=== PATIENT | male | born 1950 | race Caucasian/White ===

== ENCOUNTER 2020-06-11 10:21 | Outpatient (REF) | payer MEDICARE, MEDICAID, SELFPAY ==
[2020-06-11 14:15] LABS: MANUAL DIFF FLAG NO
[2020-06-11 14:24] LABS: Basophils Percent Auto 0.5 % (0-2); Eosinophils Absolute Auto 0.2 X10*3/uL (0.0-0.4); Eosinophils Percent Auto 3.6 % (0-4); Hematocrit 44.9 % (42-52); Hemoglobin 14.9 g/dl (14.0-18.0); Imm Gran Abs Auto 0.01 X10*3/uL (0.00-0.03); Imm Gran Pct Auto 0.2 % (0.0-0.4); Lymphocytes Absolute Auto 1.6 X10*3/uL (1.2-4.9); Lymphocytes Percent Auto 27.9 % (20-40); Mean Corpuscular HGB Conc 33.2 g/dl (31.0-36.0); Mean Corpuscular Hemoglobin 29.2 pg (27.0-33.0); Mean Corpuscular Volume 87.9 fL (80-98); Mean Platelet Volume 12.9 fL (9.4-12.4); Monocytes Absolute Auto 0.5 X10*3/uL (0.1-1.2); Neutrophils Absolute Auto 3.5 X10*3/uL (2.0-8.3); Neutrophils Percent Auto 59.8 % (45-73); Red Blood Count 5.11 X10*6/uL (4.60-5.80); Red Cell Distribution Width 12.4 % (11.0-16.0); White Blood Count 5.9 X10*3/uL (4.8-10.8)
[2020-06-11 14:57] LABS: Platelet Count 80 X10*3/uL (160-400)
[2020-06-11 15:02] LABS: Alanine Aminotransferase 13 U/L (0-40); Albumin Level 4.6 g/dL (3.5-5.0); Alkaline Phosphatase 71 U/L (39-117); Anion Gap 14 (12-20); Aspartate Amino Transferase 18 U/L (5-37); Blood Urea Nitrogen 13 mg/dL (9-16); Calcium 9.2 mg/dL (8.4-10.2); Carbon Dioxide 22 mmol/L (22-29); Chloride 107 mmol/L (96-108); Cholesterol 122 mg/dL; Estimated Glomerular Filt Rate > 60; Glucose Fasting 103 mg/dL (60-99); HDL Cholesterol 38 mg/dL; LDL Cholesterol Calculated 64 mg/dl; Potassium 4.1 mmol/L (3.3-5.1); Sodium 139 mmol/L (135-145); Total Protein 7.4 g/dL (6.5-8.0); Triglycerides 102 mg/dL
== END 2020-06-11 10:22 | disposition home or self-care (01) ==
LOC: HO.10HDL 10:21
PROVIDERS: Visit Provider Internal Medicine
DX: Z00.00 Encounter for general adult medical examination without abnormal findings (principal); E11.9 Type 2 diabetes mellitus without complications
CPT/HCPCS: 36415; 80053; 80061; 85025

== ENCOUNTER 2021-02-18 09:31 | Outpatient (REF) | payer MEDICARE, MEDICAID, SELFPAY ==
[2021-02-18 10:48] LABS: Cholesterol 122 mg/dL; HDL Cholesterol 28 mg/dL; LDL Cholesterol Calculated 66 mg/dl; Triglycerides 144 mg/dL
== END 2021-02-18 09:32 | disposition home or self-care (01) ==
LOC: HO.10HDL 09:31
PROVIDERS: Visit Provider Internal Medicine
DX: E11.9 Type 2 diabetes mellitus without complications (principal)
CPT/HCPCS: 36415; 80061

== ENCOUNTER 2021-05-27 10:15 | Outpatient (REF) | payer MEDICARE, MEDICAID, SELFPAY ==
[2021-05-27 10:35] LABS: MANUAL DIFF FLAG NO
[2021-05-27 11:03] LABS: Basophils Percent Auto 0.3 % (0-2); Eosinophils Absolute Auto 0.2 X10*3/uL (0.0-0.4); Hemoglobin 14.9 g/dl (14.0-18.0); Imm Gran Abs Auto 0.02 X10*3/uL (0.00-0.03); Imm Gran Pct Auto 0.3 % (0.0-0.4); Lymphocytes Absolute Auto 2.1 X10*3/uL (1.2-4.9); Mean Corpuscular HGB Conc 33.1 g/dl (31.0-36.0); Mean Corpuscular Hemoglobin 29.2 pg (27.0-33.0); Mean Corpuscular Volume 88.2 fL (80.0-98.0); Mean Platelet Volume 11.8 fL (9.4-12.4); Monocytes Absolute Auto 0.6 X10*3/uL (0.1-1.2); Monocytes Percent Auto 8.3 % (2-11); Neutrophils Absolute Auto 4.5 x10*3/uL (2.0-8.3); Neutrophils Percent Auto 60.1 % (45-73); Red Cell Distribution Width 12.3 % (11.0-16.0); White Blood Count 7.4 X10*3/uL (4.8-10.8)
[2021-05-27 11:22] LABS: Alanine Aminotransferase 13 U/L (0-40); Albumin Level 4.5 g/dL (3.5-5.0); Alkaline Phosphatase 66 U/L (39-117); Anion Gap 11 (12-20); Aspartate Amino Transferase 14 U/L (5-37); Bilirubin Total 0.9 mg/dL (0.0-1.0); Blood Urea Nitrogen 18 mg/dL (9-16); Calcium 9.6 mg/dL (8.4-10.2); Carbon Dioxide 24 mmol/L (22-29); Chloride 108 mmol/L (96-108); Cholesterol 133 mg/dL; Estimated Glomerular Filt Rate > 60; Glucose Fasting 109 mg/dL (60-99); HDL Cholesterol 36 mg/dL; LDL Cholesterol Calculated 76 mg/dl; Potassium 4.4 mmol/L (3.3-5.1); Sodium 139 mmol/L (135-145); Total Protein 7.4 g/dL (6.5-8.0); Triglycerides 109 mg/dL
[2021-05-27 11:34] LABS: Platelet Count 74 X10*3/uL (160-400)
== END 2021-05-27 10:16 | disposition home or self-care (01) ==
LOC: HO.LAB 10:15
PROVIDERS: PCP Internal Medicine; Visit Provider Internal Medicine
DX: Z00.00 Encounter for general adult medical examination without abnormal findings (principal); Z13.0 Encounter for screening for diseases of the blood and blood-forming organs and certain disorders involving the immune mechanism
CPT/HCPCS: 36415; 80053; 80061; 85025

== ENCOUNTER 2021-08-14 08:31 | Outpatient (REF) | payer MEDICARE, MEDICAID, SELFPAY ==
[2021-08-14 11:00] LABS: Cholesterol 167 mg/dL; HDL Cholesterol 36 mg/dL; LDL Cholesterol Calculated 97 mg/dl; Triglycerides 170 mg/dL
== END 2021-08-14 08:32 | disposition home or self-care (01) ==
LOC: HO.10HDL 08:31
PROVIDERS: Visit Provider Internal Medicine
DX: Z13.220 Encounter for screening for lipoid disorders (principal)
CPT/HCPCS: 36415; 80061

== ENCOUNTER 2022-03-04 10:11 | Outpatient (REF) | payer MEDICARE, MEDICAID, SELFPAY ==
[2022-03-04 10:30] LABS: MANUAL DIFF FLAG NO
[2022-03-04 10:39] LABS: Basophils Percent Auto 0.4 % (0-2); Hematocrit 42.3 % (42.0-52.0); Imm Gran Abs Auto 0.03 X10*3/uL (0.00-0.03); Imm Gran Pct Auto 0.4 % (0.0-0.4)
[2022-03-04 10:41] LABS: Eosinophils Absolute Auto 0.2 X10*3/uL (0.0-0.4); Eosinophils Percent Auto 2.4 % (0-4); Hemoglobin 13.7 g/dl (14.0-18.0); Lymphocytes Absolute Auto 1.8 X10*3/uL (1.2-4.9); Lymphocytes Percent Auto 22.2 % (20-40); Mean Corpuscular HGB Conc 32.4 g/dl (31.0-36.0); Mean Corpuscular Hemoglobin 27.3 pg (27.0-33.0); Mean Corpuscular Volume 84.3 fL (80.0-98.0); Mean Platelet Volume 11.6 fL (9.4-12.4); Monocytes Absolute Auto 0.7 X10*3/uL (0.1-1.2); Monocytes Percent Auto 8.7 % (2-11); Neutrophils Absolute Auto 5.4 x10*3/uL (2.0-8.3); Neutrophils Percent Auto 65.9 % (45-73); Red Blood Count 5.02 X10*6/uL (4.60-5.80); Red Cell Distribution Width 13.3 % (11.0-16.0)
[2022-03-04 10:42] LABS: Platelet Count 86 X10*3/uL (160-400); White Blood Count 8.2 X10*3/uL (4.8-10.8)
[2022-03-04 11:27] LABS: Alanine Aminotransferase 14 U/L (0-40); Albumin Level 4.3 g/dL (3.5-5.0); Alkaline Phosphatase 75 U/L (39-117); Anion Gap 13 (12-20); Aspartate Amino Transferase 13 U/L (5-37); Bilirubin Total 0.8 mg/dL (0.0-1.0); Blood Urea Nitrogen 16 mg/dL (9-16); Carbon Dioxide 25 mmol/L (22-29); Chloride 107 mmol/L (96-108); Cholesterol 114 mg/dL; Estimated Glomerular Filt Rate > 60; Glucose Fasting 114 mg/dL (60-99); HDL Cholesterol 30 mg/dL; LDL Cholesterol Calculated 59 mg/dl; Sodium 141 mmol/L (135-145); Total Protein 7.1 g/dL (6.5-8.0); Triglycerides 128 mg/dL
== END 2022-03-04 10:12 | disposition home or self-care (01) ==
LOC: HO.10HDL 10:11
PROVIDERS: Visit Provider Internal Medicine
DX: Z13.0 Encounter for screening for diseases of the blood and blood-forming organs and certain disorders involving the immune mechanism (principal); I10 Essential (primary) hypertension; E78.5 Hyperlipidemia, unspecified
CPT/HCPCS: 36415; 80053; 80061; 85025

== ENCOUNTER 2022-08-01 08:58 | Outpatient (REF) | payer MEDICARE, MEDICAID, SELFPAY ==
[2022-08-01 11:12] LABS: Cholesterol 166 mg/dL; HDL Cholesterol 50 mg/dL; LDL Cholesterol Calculated 85 mg/dl; Triglycerides 159 mg/dL
== END 2022-08-01 08:59 | disposition home or self-care (01) ==
LOC: HO.10HDL 08:58
PROVIDERS: Visit Provider Internal Medicine
DX: E78.5 Hyperlipidemia, unspecified (principal)
CPT/HCPCS: 36415; 80061

== ENCOUNTER 2023-02-10 10:59 | Outpatient (AMB) | payer MEDICARE, MEDICAID, SELFPAY ==
[2023-02-10 11:03] VITALS: BP 132/90; PULSE 50; O2SAT 98; BMI 28.1
--- NOTE | 2023-02-10 11:03 | MHC.PC.OV ---
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 Accompanied by: Daughter Allergies atorvastatin [Lipitor] Allergy (Unknown, Verified 02/10/23 11:03) nausea and vomiting acetaminophen [From Tylenol] Allergy (Verified 02/10/23 11:08) Unknown Erythromycin Allergy (Unknown, Uncoded 02/10/23 11:03) Unknown Medication List - Last Reconciled 02/10/23 by Sammy Arambula MD blood pressure monitor (Blood Pressure Kit) As directed Crestor (rosuvastatin) 20 mg PO DAILY 90 days NS diltiazem HCl 180 mg PO DAILY metoprolol succinate ER 150 mg (1.5 x 100 mg) PO BID PRN triamcinolone acetonide 0.5% 1 appl topical TID Tobacco use date assessed: 08/06/22 Fall risk assessment: No Falls in past year Last assessed Fall Risk: 02/10/23 Dental Screening Dental Screen Date: 02/10/23 Did you have a dental visit in the last 12 months?: Yes Did you have a dental problem in the last 6 months where you did not have access to dental care?: No Was dental information given to patient?: Patient has dentist HPI 3 month follow up HPI Details HTN Hyperlip and colon cancer; had his surgery and still has a stoma [facility] Medical History Obesity Hyperlipidemia Surgical History History of creation of ostomy Hx of CABG Family History Father No problems noted. Mother No problems noted. Social History Housing: House Alcohol intake: never Patient Tobacco Use Status: Never used Tobacco e-Cigarette/Vaping Use: Never Used Second Hand Smoke Exposure: No service: No Current occupational status: retired Cognitive needs: No Hearing needs: No Vision needs: No Questionnaire Thrive Questionnaire Date Thrive assessed: 08/06/22 SOLANGE-7 AMB Questionnaire SOLANGE-7 Date SOLANGE - 7 assessed: 08/06/22 Source: Developed by Drs. Silvestre Montesinos, Kaitlin Zhu, Brad Retana and colleagues, with an educational eliazar from [employer]. Review of Systems Const Denies chills, Denies headache(s) and Denies weight loss ENT Denies headache(s) Card Denies chest pain, Denies syncope, Denies irregular heart rhythm and Denies dyspnea Resp Denies chest congestion, Denies cough and Denies dyspnea GI Denies abdominal pain, Denies change in stool character, Denies nausea and Denies vomiting Musc Denies deformity and Denies joint swelling Neuro Denies syncope and Denies headache(s) Physical exam (Primary Care) Vital Signs: Last Vital Signs Pulse 50 02/10/23 11:03 BP 132/90 H 02/10/23 11:03 Pulse Ox 98 02/10/23 11:03 Oxygen Delivery Method Room Air 02/10/23 11:03 BMI result Body Mass Index 28.1 Tobacco/Smoking Status: Tobacco use Status Tobacco use date assessed 08/06/22 02/10/23 11:04 Patient Tobacco Use Status Never used Tobacco 02/10/23 11:04 e-Cigarette/Vaping Use Never Used 02/10/23 11:04 Thrive Assessment: Date of Thrive Assessment Date Thrive assessed 08/06/22 02/10/23 11:04 Const General: cooperative, comfortable, no acute distress and alert Neck Neck: Yes no lymphadenopathy Thyroid: Thyroid normal Resp Effort & Inspection: normal respiratory effort Auscultation: clear to auscultation bilaterally Percussion: percussion normal Cardio Jugular venous distension: no JVD Palpation: normal PMI Rate: regular rate Rhythm: regular rhythm Heart sounds: S1 normal heart sound present and S2 normal heart sound present GI Inspection: Yes normal to inspection Palpation (GI): No hepatosplenomegaly present Skin General skin exam: no rashes or lesions noted Extrem General: Yes no clubbing, cyanosis or edema Assessment and Plan Assessment & Plan (1) Colon cancer: Code(s): C18.9 - Malignant neoplasm of colon, unspecified Plan: as per surgery (2) Hypertension: Code(s): I10 - Essential (primary) hypertension Plan: stable; do labs (3) Hyperlipidemia: Code(s): E78.5 - Hyperlipidemia, unspecified Plan: same rx; do labs Orders: Orders Lipid Panel Today E78.5 - Hyperlipidemia, unspecified Complete Blood Count Auto Diff Today D64.9 - Anemia, unspecified Comprehensive [place]. Panel Fast Today N28.9 - Disorder of kidney and ureter, unspecified Coding Level of Care Code Est Pt Level 4 (85172) Diagnoses Colon cancer C18.9 Hypertension I10 Hyperlipidemia E78.5
== END 2023-02-10 11:31 | disposition home or self-care (01) ==
PROVIDERS: PCP Internal Medicine; Visit Provider Internal Medicine
DX: C18.9 Malignant neoplasm of colon, unspecified (principal); I10 Essential (primary) hypertension; E78.5 Hyperlipidemia, unspecified
CPT/HCPCS: 99214

== ENCOUNTER 2023-09-07 07:39 | Outpatient (REF) | payer MEDICARE, MEDICAID, SELFPAY ==
[2023-09-07 09:08] LABS: MANUAL DIFF FLAG NO
[2023-09-07 09:26] LABS: Basophils Percent Auto 0.3 % (0-2); Eosinophils Absolute Auto 0.1 X10*3/uL (0.0-0.4); Eosinophils Percent Auto 2.3 % (0-4); Hematocrit 41.4 % (42.0-52.0); Hemoglobin 13.7 g/dl (14.0-18.0); Imm Gran Abs Auto 0.03 X10*3/uL (0.00-0.03); Imm Gran Pct Auto 0.5 % (0.0-0.4); Lymphocytes Percent Auto 16.2 % (20-40); Mean Corpuscular HGB Conc 33.1 g/dl (31.0-36.0); Mean Corpuscular Hemoglobin 28.4 pg (27.0-33.0); Mean Corpuscular Volume 85.7 fL (80.0-98.0); Mean Platelet Volume 10.9 fL (9.4-12.4); Monocytes Absolute Auto 0.6 X10*3/uL (0.1-1.2); Monocytes Percent Auto 9.6 % (2-11); Neutrophils Absolute Auto 4.4 x10*3/uL (2.0-8.3); Neutrophils Percent Auto 71.1 % (45-73); Red Blood Count 4.83 X10*6/uL (4.60-5.80); Red Cell Distribution Width 13.8 % (11.0-16.0); White Blood Count 6.2 X10*3/uL (4.8-10.8)
[2023-09-07 09:27] LABS: Platelet Count 86 X10*3/uL (160-400)
[2023-09-07 10:12] LABS: Alanine Aminotransferase 11 U/L (0-40); Albumin Level 4.4 g/dL (3.5-5.0); Alkaline Phosphatase 74 U/L (39-117); Anion Gap 11 (12-20); Aspartate Amino Transferase 14 U/L (5-37); Bilirubin Total 0.9 mg/dL (0.0-1.0); Blood Urea Nitrogen 24 mg/dL (9-16); Calcium 9.5 mg/dL (8.4-10.2); Carbon Dioxide 25 mmol/L (22-29); Chloride 107 mmol/L (96-108); Cholesterol 130 mg/dL (<200); Estimated Glomerular Filt Rate > 60; Glucose Fasting 108 mg/dL (60-99); HDL Cholesterol 42 mg/dL (>40); LDL Cholesterol Calculated 71 mg/dL (<100); Sodium 139 mmol/L (135-145); Total Protein 7.3 g/dL (6.5-8.0); Triglycerides 88 mg/dL (<150)
== END 2023-09-07 07:40 | disposition home or self-care (01) ==
LOC: HO.10HDL 07:39
PROVIDERS: Visit Provider Internal Medicine
DX: N28.9 Disorder of kidney and ureter, unspecified (principal); E78.5 Hyperlipidemia, unspecified; D64.9 Anemia, unspecified
CPT/HCPCS: 36415; 80053; 80061; 85025

== ENCOUNTER 2023-09-09 11:03 | Outpatient (AMB) | payer MEDICARE, MEDICAID, SELFPAY ==
[2023-09-09 11:10] VITALS: BP 140/68; PULSE 70; O2SAT 98; BMI 28.4
--- NOTE | 2023-09-09 11:10 | MHC.PC.OV ---
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 Allergies atorvastatin [Lipitor] Allergy (Unknown, Verified 09/09/23 11:10) nausea and vomiting acetaminophen [From Tylenol] Allergy (Verified 09/09/23 11:10) Unknown Erythromycin Allergy (Unknown, Uncoded 09/09/23 11:10) Unknown Tobacco use date assessed: 09/09/23 Fall risk assessment: No Falls in past year Last assessed Fall Risk: 09/09/23 Dental Screening Dental Screen Date: 02/10/23 HPI 3mth follow up HPI Details hyperlipidemia on rx; doing well; compliant [facility] Medical History Obesity Hyperlipidemia Surgical History History of creation of ostomy Hx of CABG Family History Father No problems noted. Mother No problems noted. Social History Housing: House Alcohol intake: never Patient Tobacco Use Status: Never used Tobacco e-Cigarette/Vaping Use: Never Used Second Hand Smoke Exposure: No service: No Current occupational status: retired Cognitive needs: No Hearing needs: No Vision needs: No Questionnaire PHQ-9 Over the last 2 weeks, how often have you been bothered by any of the following problems? 1. Little interest or pleasure in doing things: not at all 2. Feeling down, depressed, or hopeless: not at all 3. Trouble falling or staying asleep, or sleeping too much: not at all 4. Feeling tired or having little energy: not at all 5. Poor appetite or overeating: not at all 6. Feeling bad about yourself - or that you are a failure or have let yourself or your family down: not at all 7. Trouble concentrating on things, such as reading the newspaper or watching television: not at all 8. Moving or speaking so slowly that other people could have noticed. Or the opposite - being so fidgety or restless that you have been moving around a lot more than usual: not at all 9. Thoughts that you would be better off or of hurting yourself in some way: not at all Total score: 0 Depression Screening Interpretation: Negative Depression Screening Done: Yes Source: Developed by Drs. Silvestre Montesinos, Kaitlin Zhu, Brad Retana and colleagues, with an educational eliazar from [employer]. Thrive Questionnaire Date Thrive assessed: 09/09/23 I am a: Patient What is your living situation today?: I have a steady place to live Within the past 12 months, did the food you bought not last and you didn't have the money to get more?: Never true Within the past 12 months, did you worry whether your food would run out before you got money to buy more?: Never true Do you have trouble paying for medicines?: No Do you have trouble getting transportation to medical appointments?: No Do you have trouble paying your heating and electricity bill?: No Do you have trouble taking care of your child, family member or friend?: No Do you have trouble with day-to-day activities such as bathing, preparing meals, shopping, managing finances, etc.?: No Are you currently unemployed and looking for a job?: No Are you interested in more education?: No Please select the resources that you would like help with: None THRIVE Score: 0 AUDIT C Alcohol Use Questionnaire (AUDIT-C) Score Reviewed/Action Taken: Yes SOLANGE-7 AMB Questionnaire SLOANGE-7 Date SOLANGE - 7 assessed: 09/09/23 Feeling nervous, anxious, or on edge: 0 = Not at all Not being able to stop or control worryin = Not at all Worrying too much about different things: 0 = Not at all Trouble relaxin = Not at all Being so restless that it is hard to sit still: 0 = Not at all Becoming easily annoyed or irritable: 0 = Not at all Feeling afraid as if something awful might happen: 0 = Not at all Total SOLANGE-7 score (0-4 normal; 5-9 mild; 10-14 moderate; 15-21 severe): 0 Source: Developed by Kaitlin Quiroz Marko, Brad Retana and colleagues, with an educational eliazar from [employer]. Review of Systems Const Denies chills, Denies headache(s) and Denies weight loss ENT Denies headache(s) Card Denies chest pain, Denies syncope, Denies irregular heart rhythm and Denies dyspnea Resp Denies chest congestion, Denies cough and Denies dyspnea GI Denies abdominal pain, Denies change in stool character, Denies nausea and Denies vomiting Musc Denies deformity and Denies joint swelling Neuro Denies syncope and Denies headache(s) Physical exam (Primary Care) Vital Signs: Last Vital Signs Pulse 70 09/09/23 11:10 BP 140/68 H 09/09/23 11:10 Pulse Ox 98 09/09/23 11:10 Oxygen Delivery Method Room Air 09/09/23 11:10 BMI result Body Mass Index 28.4 Tobacco/Smoking Status: Tobacco use Status Tobacco use date assessed 09/09/23 09/09/23 11:12 Patient Tobacco Use Status Never used Tobacco 09/09/23 11:12 e-Cigarette/Vaping Use Never Used 09/09/23 11:12 PHQ-9: PHQ-9 Score PHQ-9: Total score 0 09/09/23 11:12 Depression Screening Interpretation: Negative Thrive Assessment: Date of Thrive Assessment Date Thrive assessed 09/09/23 09/09/23 11:12 Const General: cooperative, comfortable, no acute distress and alert Neck Neck: Yes no lymphadenopathy Thyroid: Thyroid normal Resp Effort & Inspection: normal respiratory effort Auscultation: clear to auscultation bilaterally Percussion: percussion normal Cardio Jugular venous distension: no JVD Palpation: normal PMI Rate: regular rate Rhythm: regular rhythm Heart sounds: S1 normal heart sound present and S2 normal heart sound present GI Inspection: Yes normal to inspection Palpation (GI): No hepatosplenomegaly present Skin General skin exam: no rashes or lesions noted Extrem General: Yes no clubbing, cyanosis or edema Assessment and Plan Assessment & Plan (1) Hyperlipidemia: Code(s): E78.5 - Hyperlipidemia, unspecified Plan: stable; same rx Orders: Orders Lipid Panel Today Z13.220 - Encounter for screening for lipoid disorders Coding Level of Care Code Est Pt Level 3 (90779) Diagnoses Hyperlipidemia E78.5
== END 2023-09-09 14:49 | disposition home or self-care (01) ==
PROVIDERS: PCP Internal Medicine; Visit Provider Internal Medicine
DX: E78.5 Hyperlipidemia, unspecified (principal)
CPT/HCPCS: 99213

== ENCOUNTER 2023-12-10 11:00 | Outpatient (AMB) | payer MEDICARE, MEDICAID, SELFPAY ==
--- NOTE | 2023-12-10 11:02 | A.OFFPC_ITS ---
Vital Signs 12/10/23 11:12 Height 5 ft 8 in Weight 188 lb BMI 28.6 BP 136/78 Blood Pressure Location Rt brachial Position Sitting Pulse 71 Pulse Source Pulse Oximeter Pulse Oximetry (%) 94 Oxygen Delivery Method Room Air Intake Visit Reasons: 3mth f/u - see comments Vp Of Customer Experience Strategy Required: Yes Vp Of Customer Experience Strategy Name: Daughter Accompanied by: Daughter and Allergies atorvastatin [Lipitor] Allergy (Unknown, Verified 12/10/23 11:12) nausea and vomiting acetaminophen [From Tylenol] Allergy (Verified 12/10/23 11:12) Unknown Erythromycin Allergy (Unknown, Uncoded 12/10/23 11:12) Unknown Medication List - Last Reconciled 12/10/23 by Sammy Arambula MD apixaban (Eliquis) 5 mg PO BID blood pressure monitor (Blood Pressure Kit) As directed Crestor (rosuvastatin) 20 mg PO DAILY 90 days NS diltiazem HCl CD 180 mg PO DAILY metoprolol succinate ER 150 mg (1.5 x 100 mg) PO BID PRN triamcinolone acetonide 0.5% 1 appl topical TID Tobacco use date assessed: 09/09/23 Fall risk assessment: No Falls in past year Last assessed Fall Risk: 12/10/23 Dental Screening Dental Screen Date: 02/10/23 HPI 3mth f/u - see comments HPI Details hyperlipidemia on rx; doing well; compliant [facility] Medical History Obesity Hyperlipidemia Surgical History History of creation of ostomy Hx of CABG Family History Father No problems noted. Mother No problems noted. Social History Housing: House Alcohol intake: never Patient Tobacco Use Status: Never used Tobacco Tobacco use type: Cigarette e-Cigarette/Vaping Use: Never Used Second Hand Smoke Exposure: No service: No Current occupational status: retired Cognitive needs: No Hearing needs: No Vision needs: No Questionnaire Thrive Questionnaire Date Thrive assessed: 09/09/23 SOLANGE-7 AMB Questionnaire SOLANGE-7 Date SOLANGE - 7 assessed: 09/09/23 Source: Developed by Drs. Silvestre Montesinos, Kaitlin Zhu, Brad Retana and colleagues, with an educational eliazar from [employer] Review of Systems Const Denies chills, Denies headache(s) and Denies weight loss ENT Denies headache(s) Card Denies chest pain, Denies syncope, Denies irregular heart rhythm and Denies dyspnea Resp Denies chest congestion, Denies cough and Denies dyspnea GI Denies abdominal pain, Denies change in stool character, Denies nausea and Denies vomiting Musc Denies deformity and Denies joint swelling Neuro Denies syncope and Denies headache(s) Physical exam (Primary Care) Vital Signs: Last Vital Signs Pulse 71 12/10/23 11:12 BP 136/78 12/10/23 11:12 Pulse Ox 94 12/10/23 11:12 Oxygen Delivery Method Room Air 12/10/23 11:12 BMI result Body Mass Index 28.6 Tobacco/Smoking Status: Tobacco use Status Tobacco use date assessed 09/09/23 12/10/23 11:02 Patient Tobacco Use Status Never used Tobacco 12/10/23 11:02 Tobacco use type Cigarette 12/10/23 11:02 e-Cigarette/Vaping Use Never Used 12/10/23 11:02 Thrive Assessment: Date of Thrive Assessment Date Thrive assessed 09/09/23 12/10/23 11:02 Const General: cooperative, comfortable, no acute distress and alert Neck Neck: Yes no lymphadenopathy Thyroid: Thyroid normal Resp Effort & Inspection: normal respiratory effort Auscultation: clear to auscultation bilaterally Percussion: percussion normal Cardio Jugular venous distension: no JVD Palpation: normal PMI Rate: regular rate Rhythm: regular rhythm Heart sounds: S1 normal heart sound present and S2 normal heart sound present GI Inspection: Yes normal to inspection Palpation (GI): No hepatosplenomegaly present Skin General skin exam: no rashes or lesions noted Extrem General: Yes no clubbing, cyanosis or edema Coding Level of Care Code Est Pt Level 3 (54799) Diagnoses Hyperlipidemia E78.5 Assessment & Plan Assessment & Plan (1) Hyperlipidemia: Code(s): E78.5 - Hyperlipidemia, unspecified Category: Medical Plan: stable; same rx Orders: Orders Lipid Panel Today Z13.220 - Encounter for screening for lipoid disorders
[2023-12-10 11:12] VITALS: BP 136/78; PULSE 71; O2SAT 94; BMI 28.6
== END 2023-12-10 11:40 | disposition home or self-care (01) ==
LOC: HO.HMCH 11:01
PROVIDERS: PCP Internal Medicine; Visit Provider Internal Medicine
DX: E78.5 Hyperlipidemia, unspecified (principal)

== ENCOUNTER → 2023-12-10 11:00 | Outpatient (BNVA) | payer MEDICARE, MEDICAID, SELFPAY | PROVIDERS: PCP Internal Medicine; Visit Provider Internal Medicine | DX: E78.5 Hyperlipidemia, unspecified (principal) | CPT/HCPCS: 99212 ==

== ENCOUNTER 2024-02-25 09:41 | Outpatient (REF) | payer MEDICARE, MEDICAID, SELFPAY ==
[2024-02-25 10:57] LABS: Cholesterol 251 mg/dL (<200); HDL Cholesterol 36 mg/dL (>40); LDL Cholesterol Calculated 178 mg/dL (<100); Triglycerides 189 mg/dL (<150)
== END 2024-02-25 09:42 | disposition home or self-care (01) ==
LOC: HO.10HDL 09:41
PROVIDERS: Visit Provider Internal Medicine
DX: Z13.220 Encounter for screening for lipoid disorders (principal)
CPT/HCPCS: 36415; 80061

== ENCOUNTER 2024-03-11 11:35 | Outpatient (AMB) | payer MEDICARE, MEDICAID, SELFPAY ==
[2024-03-11 11:42] VITALS: BP 128/72; PULSE 69; TEMP 36.1; O2SAT 97; BMI 28.7
--- NOTE | 2024-03-11 11:42 | MHC.PC.OV ---
Vital Signs 03/11/24 11:42 Height 5 ft 8 in Weight 189 lb BMI 28.7 BP 128/72 Blood Pressure Location Lt brachial Position Sitting Pulse 69 Pulse Source Pulse Oximeter Temp 96.9 F Temp Source Temporal Artery Scan Pulse Oximetry (%) 97 Oxygen Delivery Method Room Air Intake Visit Reasons: 3mth f/u Parts And Service Manager Required: Yes Parts And Service Manager Language: Indonesian Parts And Service Manager Name: Daughter will interpret. Accompanied by: Daughter Allergies atorvastatin [Lipitor] Allergy (Unknown, Verified 03/11/24 11:52) nausea and vomiting acetaminophen [From Tylenol] Allergy (Verified 03/11/24 11:52) Unknown Erythromycin Allergy (Unknown, Uncoded 03/11/24 11:52) Unknown Medication List - Last Reconciled 03/11/24 by Sammy Arambula MD apixaban (Eliquis) 5 mg PO BID blood pressure monitor (Blood Pressure Kit) As directed Crestor (rosuvastatin) 20 mg PO DAILY 90 days NS diltiazem HCl CD 180 mg PO DAILY metoprolol succinate ER 150 mg (1.5 x 100 mg) PO BID PRN triamcinolone acetonide 0.5% 1 appl topical TID Tobacco use date assessed: 03/11/24 Fall risk assessment: No Falls in past year Last assessed Fall Risk: 03/11/24 Dental Screening Dental Screen Date: 03/11/24 Did you have a dental visit in the last 12 months?: Yes Did you have a dental problem in the last 6 months where you did not have access to dental care?: No Was dental information given to patient?: Patient has dentist HPI 3mth f/u HPI Details CAD HTN and hyperlipidemia; stopped his chol rx;will restart it; feels well [facility] Medical History Obesity Hyperlipidemia Surgical History History of creation of ostomy Hx of CABG Family History Father No problems noted. Mother No problems noted. Social History Housing: House Alcohol intake: never Patient Tobacco Use Status: Never used Tobacco Tobacco use type: Cigarette e-Cigarette/Vaping Use: Never Used Second Hand Smoke Exposure: No service: No Current occupational status: retired Cognitive needs: No Hearing needs: No Vision needs: No Questionnaire PHQ-9 Over the last 2 weeks, how often have you been bothered by any of the following problems? 1. Little interest or pleasure in doing things: not at all 2. Feeling down, depressed, or hopeless: not at all 3. Trouble falling or staying asleep, or sleeping too much: not at all 4. Feeling tired or having little energy: not at all 5. Poor appetite or overeating: not at all 6. Feeling bad about yourself - or that you are a failure or have let yourself or your family down: not at all 7. Trouble concentrating on things, such as reading the newspaper or watching television: not at all 8. Moving or speaking so slowly that other people could have noticed. Or the opposite - being so fidgety or restless that you have been moving around a lot more than usual: not at all 9. Thoughts that you would be better off or of hurting yourself in some way: not at all Total score: 0 Depression Screening Interpretation: Negative Depression Screening Done: Yes 88190 - PHQ-9 Billing: Yes Source: Developed by Drs. Silvestre Montesinos, Kaitlin Zhu, Brad Retana and colleagues, with an educational eliazar from [employer] Thrive Questionnaire Date Thrive assessed: 03/11/24 I am a: Patient What is your living situation today?: I have a steady place to live Within the past 12 months, did the food you bought not last and you didn't have the money to get more?: Never true Within the past 12 months, did you worry whether your food would run out before you got money to buy more?: Never true Do you have trouble paying for medicines?: No Do you have trouble getting transportation to medical appointments?: No Do you have trouble paying your heating and electricity bill?: No Do you have trouble taking care of your child, family member or friend?: No Do you have trouble with day-to-day activities such as bathing, preparing meals, shopping, managing finances, etc.?: No Are you currently unemployed and looking for a job?: No Are you interested in more education?: No Please select the resources that you would like help with: None Currently or been in a relationship where the following occur: No concerns reported THRIVE Score: 0 AUDIT C Alcohol Use Questionnaire (AUDIT-C) 1. How often do you have a drink containing alcohol?: Never 3. How often do you have six or more drinks on one occasion?: Never Total Score: 0 SOLANGE-7 AMB Questionnaire SOLANGE-7 Date SOLANGE - 7 assessed: 03/11/24 Feeling nervous, anxious, or on edge: 0 = Not at all Not being able to stop or control worryin = Not at all Worrying too much about different things: 0 = Not at all Trouble relaxin = Not at all Being so restless that it is hard to sit still: 0 = Not at all Becoming easily annoyed or irritable: 0 = Not at all Feeling afraid as if something awful might happen: 0 = Not at all Total SOLANGE-7 score (0-4 normal; 5-9 mild; 10-14 moderate; 15-21 severe): 0 Source: Developed by Drs. Silvestre Montesinos, Kaitlin Zhu, Brad Retana and colleagues, with an educational eliazar from [employer] SOLANGE-7 Assessment Billing SOLANGE-7 Assessment Tool: SOLANGE-7 Assessment 49333 Review of Systems Const Denies chills, Denies headache(s) and Denies weight loss ENT Denies headache(s) Card Denies chest pain, Denies syncope, Denies irregular heart rhythm and Denies dyspnea Resp Denies chest congestion, Denies cough and Denies dyspnea GI Denies abdominal pain, Denies change in stool character, Denies nausea and Denies vomiting Musc Denies deformity and Denies joint swelling Neuro Denies syncope and Denies headache(s) Physical exam (Primary Care) Vital Signs: Last Vital Signs Temp 96.9 F 03/11/24 11:42 Pulse 69 03/11/24 11:42 BP 128/72 03/11/24 11:42 Pulse Ox 97 03/11/24 11:42 Oxygen Delivery Method Room Air 03/11/24 11:42 BMI result Body Mass Index 28.7 Tobacco/Smoking Status: Tobacco use Status Tobacco use date assessed 03/11/24 03/11/24 11:52 Patient Tobacco Use Status Never used Tobacco 03/11/24 11:43 Tobacco use type Cigarette 03/11/24 11:43 e-Cigarette/Vaping Use Never Used 03/11/24 11:43 PHQ-9: PHQ-9 Score PHQ-9: Total score 0 03/11/24 11:52 Depression Screening Interpretation: Negative Thrive Assessment: Date of Thrive Assessment Date Thrive assessed 03/11/24 03/11/24 11:52 Currently or been in a relationship where the following occur: No concerns reported Const General: cooperative, comfortable, no acute distress and alert Neck Neck: Yes no lymphadenopathy Thyroid: Thyroid normal Resp Effort & Inspection: normal respiratory effort Auscultation: clear to auscultation bilaterally Percussion: percussion normal Cardio Jugular venous distension: no JVD Palpation: normal PMI Rate: regular rate Rhythm: regular rhythm Heart sounds: S1 normal heart sound present and S2 normal heart sound present GI Inspection: Yes normal to inspection Palpation (GI): No hepatosplenomegaly present Skin General skin exam: no rashes or lesions noted Extrem General: Yes no clubbing, cyanosis or edema Coding Level of Care Code Est Pt Level 3 (32537) Diagnoses Hypertension I10 Additional Codes SOLANGE-7 Assessment Billing - SOLANGE-7 Assessment Tool: SOLANGE-7 Assessment 98246 ([id number]) PHQ-9 - 78710 - PHQ-9 Billing: Yes ([id number]) Assessment & Plan Assessment & Plan (1) Hypertension: Code(s): I10 - Essential (primary) hypertension Category: Medical Plan: stable; same rx
--- OUTSIDE RECORDS SUMMARY | 2024-03-11 12:15 | XMS_ITS | Encounter Summary ---
Author Organization [facility] Address [address] [place] [address] Care Team Providers Care Director Of Strategic Sourcing Name Role Phone Sammy Arambula MD Primary Care Provider [phone] Encounter Details Date Type Department Care Team (Latest Contact Info) Description 12/08/2023 10:09 AM EDT Hospital Encounter TH HISTORIC ENCOUNTERS EASTERN CONVERSION ONLY Barry Morris MD [address] [place] [address] Fatty (change of) liver, not elsewhere classified Social History Tobacco Use Types Packs/Day Years Used Date Smoking Tobacco: Never Smokeless Tobacco: Never Alcohol Use Standard Drinks/Week Comments Never 0 (1 standard drink = 0.6 oz pur e alcohol) Sex and Gender Information Value Date Recorded Sex Assigned at Not on file Gender Identity Not on file Sexual Orientation Not on file Job Start Date Occupation Industry Not on file Not on file Not on file documented as of this encounter Plan of Treatment Upcoming Encounters Date Type Department Care Team (Late st Contact Info) Description 04/29/2024 10:30 AM EDT Office Visit General Surgery - [place] [address] [address] Leon Stevens MD [address] [phone] 09/14/2024 10:30 AM EDT Office Visit [facility] Hematology Oncology [address] [place] [address] Demi Hilliard MD [address] [place] [address] (work) documented as of this encounter Procedures Procedure Name Priority Date/Time Associated Diagnosis Comments ABLATION LIVER TUMORS PERC Routine 12/10/2023 5:37 PM EDT Fatty (change of) liver, not elsewhere classified documented in this encounter Results * ABLATION LIVER TUMORS PERC (12/10/2023 5:37 PM EDT) Anatomical Region Laterality Modality Interventional R adiology 12/08/2023 10:3 6 AM EDT Narrative 12/10/2023 5:37 PM EDT [facility] Diagnostic Imaging Department [address] [place] [address] Patient: ??ABDOUL DIA ?/Age/Sex: 1950 73 - M Unit#: ??[id number] ? Location/Status: ??SPDIANGIO/REG CLI ? Mnemonic/Ordering Site: ??[id number]/SPIR Ordering Physician: ??BRENDAN SWANN MD Ablation Liver Tumors Perc - 12/08/23 - 8219 Report Status:Signed History: Patient with metastatic colorectal cancer Procedure performed: 1. ??Fluoroscopic guided catheterization of the peritoneal space with advancement of a catheter over the dome of the liver. 2. ??Infusion of saline through the peritoneal catheter to push the liver away from the pleural surface. 3. ??CT guided microwave ablation of a tumor measuring just over 2 cm in segment 7 of the liver. 4. ??Tract ablation following microwave ablation Physician: Anesthesia: IV moderate sedation with intravenous fentanyl and versed was administered under my supervision with continuous physiologic monitoring for 30 minutes during placement of the peritoneal catheter. ??6 mL of 1% lidocaine was used for this portion of the procedure. ??For the ablation, 8 mL of 2% lidocaine was administered at the access site. ??General anesthesia was used for the procedure. ??See anesthesiology note for further description. Specimen: None Drain: None Estimated blood loss: Minimal Complications: None Procedure in detail: Informed and written consent was obtained and placed in the patient's chart. ??The patient was 1st positioned supine on the angiography table. ??Sterile preparation of the right lateral abdomen was performed. ??Under ultrasound and fluoroscopic guidance, a micropuncture needle was inserted 1 cm into the right hepatic lobe parenchyma. ??While the patient exhaled, a Nitrex needle was carefully steered superiorly around the hepatic capsule to the dome of the liver. ??We transitioned for a stiff Glidewire over which a hockey-stick catheter was advanced to the dome of the liver. ??This was secured in place. The patient was transferred to the CT examination table. ??Preliminary CT scan was performed. ??We retracted the peritoneal catheter roughly 10 cm to a more optimal position. ??We then infused roughly 500 mL of saline. ??It appeared that the fluid was almost more pleural, but regardless there was separation from the lung and we felt adequate hepatic parenchyma to perform the ablation with surgical margins and a low risk of pleural/lung injury. Under progressive CT guidance, a [employer] Microwave Ablation Needle measuring 15 cm was [...] the ablation was roughly 4 cm long. ??We felt that following these ablations that we had fully treated the tumor with at least 5 to 10 mm margins at all locations. ??We were satisfied with this. ??A tract ablation was performed as the needle was removed and a sterile dressing was applied. ??The peritoneal catheter was also removed and a sterile dressing applied at this location as well. Summary: Successful CT-guided microwave ablation of a metastatic liver lesion as described. Dictating Physician: ??BRENDAN SWANN MD Electronically Signed by: ??BRENDAN SWANN MD Dic Date/Time: ??12/08/23 1525 Sign date/Time: ??12/10/23 9238 Procedure Note Brendan Swann MD - 12/12/2023 [facility] Diagnostic Imaging Department [address] [place] [address] Patient: ABDOUL DIA /Age/Sex: 1950 - 73 - M Unit#: [id number] Location/Status: [facility] Mnemonic/Ordering Site: [place] [address]/[facility] Ordering Physician: BRENDAN SWANN MD Ablation Liver Tumors Merged With [facility] - 12/08/23 - 1446 Report Status:Signed History: [...] pleural/lung injury. Under progressive CT guidance, a [employer] Microwave AblationNeedle measuring 15 cm was advanced [...] 1737 Brendan Swann MD IMG IR PROCEDURES documented in this encounter Visit Diagnoses Diagnosis Fatty (change of) liver, not elsewhere classified documented in this encounter Care Teams Director Of Strategic Sourcing Relationship Specialty Start Date End Date Sammy Arambula MD [address] [place] [address] PCP - General 06/02/12 documented as of this encounter
--- OUTSIDE RECORDS SUMMARY | 2024-03-11 12:15 | XMS_ITS | Encounter Summary ---
Author Organization [facility] Address [address] [place] [address] Care Team Providers Care Netsuite Consultant Name Role Phone Sammy Arambula MD Primary Care Provider [phone] Encounter Details Date Type Department Care Team Description 05/09/2022 Social Work [facility] Oncology Services [address] [place] [address] Mariaelena Corbin, [facility] Social History Tobacco Use Types Packs/Day Years [...] file Not on file Not on file COVID-19 Exposure Response Date Recorded In the last 10 days, have yo u been in contact with someone who was confirmed or suspected to have Coronavirus/COVID-19? No / Unsure 05/02/2022 11:22 AM EDT documented as of this encounter Plan of Treatment Not on file documented as of this encounter Visit Diagnoses Not on filedocumented in this encounter Care Teams Netsuite Consultant Relationship Specialty Start Date End Date Sammy Arambula MD [address] [place] [address] Dr GiordanoyoDEVAN quintero [id number] PCP - General Internal Medicine 04/29/22 documented as of this encounter
--- OUTSIDE RECORDS SUMMARY | 2024-03-11 12:15 | XMS_ITS | Encounter Summary ---
Author Organization [facility] Address [address] [place] [address] Care Team Providers Care Mat Making Machine Tender Name Role Phone Sammy Arambula MD Primary Care Provider [phone] Encounter Details Date Type Department Care Team Description 05/30/2022 Social Work [facility] Oncology Services [address] [place] [address] Mariaelena Corbin, [facility] Social History Tobacco Use Types Packs/Day Years [...] on filedocumented in this encounter Care Teams Mat Making Machine Tender Relationship Specialty Start Date End Date Sammy Arambula MD [address] [place] [address] Dr GiordanoyoDEVAN quintero [id number] PCP - General Internal Medicine 04/29/22 documented as of this encounter
--- OUTSIDE RECORDS SUMMARY | 2024-03-11 12:15 | XMS_ITS | Encounter Summary ---
Author Organization [facility] Address [address] [place] [address] Care Team Providers Care Bander Name Role Phone Sammy Arambula MD Primary Care Provider [phone] Reason for Visit * Hospital - Outpatient (Routine) - Closed Specialty Diagnoses / Procedures Referred By Contac t Referred To Contact Radiology Diagnoses Malignant neoplasm of rectum (CMS/HCC) Procedures CT ABDOMEN PELVIS W CONTRAST CT ABDOMEN PELVIS W CONTRAST Demi Hilliard MD [address] [place] [address] [facility] [address] Scan [address] [place] [address] Referral ID Status Reason Start Date Expiration Date Visits Re quested Visits Authorized [id number] Closed 02/15/2024 02/14/2025 1 1 Encounter Details Date Type Department Care Team (Latest Contact Info) Description 02/15/2024 11:10 AM EST - 02/15/2024 11:59 PM EST Hospital Encounter [facility] CT Scan [address] [place] [address] Discharge Disposition: Home or Self Care Social History Tobacco Use Types Packs/Day Years [...] on file documented as of this encounter Medications at Time of Discharge Medication Sig Dispensed Refills Start Date End Date apixaban (ELIQUIS) 5 mg tablet Take 1 Tablet by mouth 2 times daily. metoprolol succinate (TOPROL-XL) 50 mg 24 hr tablet Take 1 Tablet by mouth daily. rosuvastatin (CRESTOR) 20 mg tablet Take 1 Tablet by mouth daily. dilTIAZem CD (CARDIZEM CD) 180 mg 24 hr capsule Take 1 Capsule by mouth daily. 03/06/2023 03/09/2024 documented as of this encounter Discharge Disposition Disposition Code Departure Means Destination Home or Self Care documented in this encounter Plan of Treatment Upcoming Encounters Date Type Department Care Team (Late st Contact Info) Description 04/29/2024 10:30 AM EDT Office Visit General Surgery - [place] [address] [phone] Leon Stevens MD [address] [address] 09/14/2024 10:30 AM EDT Office Visit [facility] Hematology Oncology [address] [place] [phone] Demi Hilliard MD [address] [place] [address] documented as of this encounter Procedures Procedure Name Priority Date/Time Associated Diagnosis Comments CT ABDOMEN PELVIS W CONTRAST Routine 02/15/2024 11:42 AM EST Malignant neoplasm of rectum (CMS/HCC) documented in this encounter Visit Diagnoses Not on filedocumented in this encounter Administered Medications Inactive Administered Medications - up to 3 most recent administrations Medication Order MAR Action Action Date Dose Rate Site barium sulfate (READI-CAT 2) 2 % (w/v) suspension 900 mL 900 mL, oral, Once in imaging, Starting on Thu02/15/24 at 1129, For 1 dose Given 02/15/2024 11:38 AM EST 900 mL iopamidoL (ISOVUE-370) 370 mg iodine /mL (76 %) injection 90 mL 90 mL, intravenous, Once in imaging, Starting on Thu02/15/24 at 1129, For 1 dose Given 02/15/2024 11:38 AM EST 90 mL sodium chloride 0.9 % flush 10 mL 10 mL, intravenous, Once, On Thu02/15/24 at 1145, For 1 dose Given 02/15/2024 11:37 AM EST 10 mL documented in this encounter Care Teams Bander Relationship Specialty Start Date End Date Sammy Arambula MD [address] [place] [address] PCP - General 06/02/12 documented as of this encounter
--- OUTSIDE RECORDS SUMMARY | 2024-03-11 12:15 | XMS_ITS | Encounter Summary ---
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 (CMS/HCC) Procedures CT Abdomen Pelvis w Contrast Demi Hilliard MD [address] [place] [address] [facility] Referral ID Status Reason Start Date Expiration Date V isits Requested Visits Authorized [id number] Authorized 02/24/2024 02/23/2025 1 1 Reason for Visit * Reason Comments Follow-up Encounter Details Date Type Department Care Team (Late st Contact Info) Description 02/24/2024 3:00 PM EST Office Visit [facility] Hematology Oncology [address] [place] [phone] Demi Hilliard MD [address] [place] [address] Rectal cancer metastasized to liver (CMS/HCC) (Primary Dx) Social History Tobacco Use Types Packs/Day Years Used Date Smoking Tobacco: Never Smokeless Tobacco: Never Tobacco Cessation:Counseling Given: Not Answered Alcohol Use Standard Drinks/Week Comments Never 0 [...] Reading Time Taken Comments Blood Pressure 135/62 02/24/2024 2:55 PM EST Pulse 65 02/24/2024 2:55 PM EST Temperature 36.8 ??C (98.3 ??F) 02/24/2024 2:55 PM ES T Respiratory Rate - - Oxygen Saturation 98% 02/24/2024 2:55 PM EST Inhaled Oxygen Concentration - - Weight 87.1 kg (192 lb) 02/24/2024 2:55 PM EST Height - - Body Mass Index 27.55 12/29/2023 1:41 PM EST documented in this encounter Progress Notes * Demi Hilliard MD - 02/24/2024 3:00 PM EST ONC CANCER FOLLOW UP CHIEF COMPLAINT: Follow-up IDENTIFIER:Abdoul Dia is a 73 y.o. male. HPI: Patient is a very pleasant 73-year-old [place] man, came for follow-up regarding his colorectal cancer, please see oncology history for details, patient recent CT scan basically unremarkable for any recurrence but there is some tiny lesion on the liver which could be suspicious but per radiologist not concerning. Patient has been feeling great ROS: GENERAL: No anorexia or weight loss, has been feeling great, denies any fever chills night sweats or any significant fatigue HEENT: no headache or any visual symptom NECK: No discomfort or lumps. RESPIRATORY: No cough or shortness of breath CARDIOVASCULAR: No chest pain. GI: No abdominal discomfort, blood in stools or black stools MUSCULOSKELETAL: No new unusual aches and pain HEMATOLOGY/LYMPHOLOGY No prolonged bleeding, easy bruisability or swollen nodes EXT: no significant swelling rash or discomfort Oncology history: Oncology History Overview Note Patient noticed on [...] have reversal of surgery in May 2023 Patient on surveillance found to have some oligometastatic liver disease, treated with ablation by Dr. 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 His family is closely involved in his care FAMILY HISTORY: Noncontributory Current Outpatient Medications: apixaban (ELIQUIS) 5 mg tablet, Take 1 Tablet by mouth 2 times daily., Disp: , Rfl: dilTIAZem CD (CARDIZEM CD) 180 mg 24 hr capsule, Take 1 Capsule by mouth daily., Disp: , Rfl: metoprolol succinate (TOPROL-XL) 50 mg 24 hr tablet, Take 1 Tablet by mouth daily., Disp: , Rfl: rosuvastatin (CRESTOR) 20 mg tablet, Take 1 Tablet by mouth daily., Disp: , Rfl: Allergies Allergen Reactions Acetaminophen Nausea And Vomiting Atorvastatin Erythromycin PHYSICAL EXAM: Visit Vitals BP 135/62 (BP Location: Left arm, Patient Position: Sitting, BP Cuff Size: Large adult) Pulse 65 Temp 36.8 ??C (98.3 ??F) (Temporal) Wt 87.1 kg (192 lb) SpO2 98% BMI 27.55 kg/m?? Smoking Status Never BSA 2.05 m?? ECOG 0 APPEARANCE: Alert and oriented in no acute distress EYES: nonicteric sclera pink conjunctiva ORAL CAVITY: No erythema or exudates NECK: Neck supple, no cervical and supraclavicular adenopathy, HEART: normal S1 and S2 LUNG: clear to auscultation bilaterally LYMPH NODES: No palpable superficial adenopathy ABDOMEN: soft, nontender and no organomegaly appreciated EXTREMITIES: No edema erythema tenderness LABS: CT scan of abdomen pelvis IMPRESSION: Extensive posttreatment changes around the rectosigmoid junction. No new measurable disease. Sequelae from ablation in hepatic segment 7. No definite new metastatic disease. IMPRESSION: 1. 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 Patient on surveillance found to have liver lesion which was ablated last year by Dr. Swann. Patient has been feeling well, clinically have no signs symptoms suggestive of recurrence, explained patient and his daughter about recent CT scan finding which looks basically unremarkable except I am concerned about very tiny lesion on the liver which could be progression of his disease. PLAN: I will schedule patient follow-up CT scan in 6 months I will schedule patient labs including CEA liver function chemistries blood count prior to next visit in 6 months Demi Hilliard MD documented in this encounter Plan of Treatment Upcoming Encounters Date Type Department Care Team (Late st Contact Info) Description 04/29/2024 10:30 AM EDT Office Visit General Surgery [facility] [address] [phone] Leon Stevens MD [address] [address] 09/14/2024 10:30 AM EDT Office Visit [facility] Hematology Oncology [address] [place] [phone] Demi Hilliard MD [address] [place] [address] Scheduled Orders Name Type Priority Associated Diagnoses Orde r Schedule CBC and differential Lab Routine Rectal cancer metastasized to liver (CMS/HCC) Expected: 08/23/2024, Expires: 02/23/2025 CEA Lab Routine Rectal cancer metastasized to liver (CMS/HCC) Expected: 08/23/2024, Expires: 02/23/2025 Comprehensive metabolic panel Lab Routine Rectal cancer metastasized to liver (CMS/HCC) Expected: 08/23/2024, Expires: 02/23/2025 CT Abdomen Pelvis w Contrast Imaging Routine Rectal cancer metastasized to liver (CMS/HCC) Expected: 08/23/2024, Expires: 02/23/2025 documented as of this encounter Visit Diagnoses Diagnosis Rectal cancer metastasized to liver (CMS/HCC)- Primary documented in this encounter Care Teams Neuro Intensivist Physician Relationship Specialty Start Date End Date Sammy Arambula MD [address] [place] [address] PCP - General 06/02/12 documented as of this encounter
--- OUTSIDE RECORDS SUMMARY | 2024-03-11 12:15 | XMS_ITS | Clinical Summary ---
Author Organization [facility] Address [address] [place] [address] Care Team Providers Care Casual Shoe Inspector Name Role Phone Sammy Arambula MD Primary Care Provider [phone] Allergies Active Allergy Reactions Criticality Noted Date Comments Atorvastatin 08/23/2021 Erythromycin 08/23/2021 Acetaminophen 09/08/2023 Medications Medication Sig Dispensed Refills Start Date End Date Status Crestor 20 MG tablet Take 1 tablet (20 mg total) by mouth daily. 0 03/14/2022 Active metoprolol tartrate (LOPRESSOR) 50 MG tablet Take by mouth 2 (two) times a day. 0 Active dilTIAZem (CARDIZEM CD) 180 MG 24 hr capsule Take 1 capsule (180 mg total) by mouth daily. 0 Active apixaban (ELIQUIS) 5 MG TABS tablet Take by mouth every 12 (twelve) hours. 0 Active Active Problems No known active problems Social History Tobacco Use Types Packs/Day Years [...] file Not on file Not on file Last Filed Vital Signs Vital Sign Reading Time Taken Comments Blood Pressure 135/62 11/20/2023 10:47 AM EDT Pulse 71 11/20/2023 10:47 AM EDT Temperature 36.7 ??C (98.1 ??F) 11/20/2023 10:47 AM E DT Respiratory Rate - - Oxygen Saturation 98% 11/20/2023 10:47 AM EDT Inhaled Oxygen Concentration - - Weight 87.6 kg (193 lb 3.2 oz) 11/20/2023 10:47 AM EDT Height 175.3 cm (5' 9 ) 09/15/2022 10:37 AM EDT Body Mass Index 28.53 09/15/2022 10:37 AM EDT Plan of Treatment Health Maintenance Due Date Last Done Comments Hepatitis C Screening 1950 COVID-19 Vaccine (#1) 1954 Pneumococcal Vaccine (1 of 2 - PCV) 07/12/1955 Depression Screening 1961 Preventative Health Evaluation 07/12/1967 DTap / Tdap / Td (1 - Tdap) 1968 Shingrix-Zoster Vaccine (1 of 2) 1968 Colon Cancer Screening (Colonoscopy) 1994 Fall Risk Assessment 2014 Influenza Vaccine (#1) 2023 RSV Adult > 60+ Yrs or Pregn ant (1 - 1-dose 75+ series) 2024 Hepatitis B Vaccines Aged Out No long er eligible based on patient's age to complete this topic RSV Ped < 20 months Aged Out No longe r eligible based on patient's age to complete this topic Care Teams Casual Shoe Inspector Relationship Specialty Start Date End Date Sammy Arambula MD [address] [place] [address] [place] [address] PCP - General Internal Medicine 04/29/22
--- OUTSIDE RECORDS SUMMARY | 2024-03-11 12:15 | XMS_ITS | Encounter Summary ---
Author Organization [facility] Address [address] [place] [address] Care Team Providers Care Leather Goods Assembler Name Role Phone Sammy Arambula MD Primary Care Provider [phone] Reason for Visit * Reason Onset Date Comments Abd/pelvis CT 12/14/2023 Encounter Details Date Type Department Care Team (Late st Contact Info) Description 12/14/2023 Telephone [facility] Hematology Oncology [address] [place] [address] Domenica Medeiros MA Abd/pelvis CT Social History Tobacco Use Types Packs/Day Years Used Date Smoking Tobacco: Never Assessed Sex and Gender Information Value Date Recorded Sex Assigned at Not on file Gender Identity Not on file Sexual Orientation Not on file Job Start Date Occupation Industry Not on file Not on file Not on file documented as of this encounter Progress Notes * Domenica Medeiros MA - 02/12/2024 11:50 AM EST LM on daughters phone yesterday, pt needs labs prior to CT, called again today and LM on home phoneand cell phone listed on file. * Domenica Medeiros MA - 12/17/2023 10:59 AM EST Spoke to pts daughter- appt info given * Domenica Medeiros MA - 12/14/2023 8:49 AM EST You 2 weeks ago FREDA Pt has been scheduled for CT at [facility] on 02/15/2024 at 11 am. Pt must be NPO x 4 hours prior and shouldhave oral contrast as well. LM for pts daughter Arielle to call me back so I can give appt info documented in this encounter Plan of Treatment Upcoming Encounters Date Type Department Care Team (Late st Contact Info) Description 04/29/2024 10:30 AM EDT Office Visit General Surgery - [place] [address] [phone] Leon Stevens MD [address] [address] 09/14/2024 10:30 AM EDT Office Visit [facility] Hematology Oncology [address] [place] [phone] Demi Hilliard MD [address] [place] [address] documented as of this encounter Visit Diagnoses Not on filedocumented in this encounter Care Teams Leather Goods Assembler Relationship Specialty Start Date End Date Sammy Arambula MD [address] [place] [address] PCP - General 06/02/12 documented as of this encounter
--- OUTSIDE RECORDS SUMMARY | 2024-03-11 12:15 | XMS_ITS | Clinical Summary ---
Author Organization [facility] Facility Address [address] [address] Care Team Providers Care Lacing Presser Name Role Phone Sammy Arambula MD Primary Care Provider [phone] Social History Tobacco Use Types Packs/Day Years Used Date Smoking Tobacco: Never Assessed Sex and Gender Information Value Date Recorded Sex Assigned at Not on file Legal Sex Male 8:43 AM EST Gender Identity Not on file Sexual Orientation Not on file Plan of Treatment Health Maintenance Due Date Last Done Comments Colorectal Cancer Screening: Annual FOBT 1998 Colorectal Cancer Screening: Colonoscopy 1998 Colorectal Cancer Screening: Sigmoidoscopy 1998 Pneumococcal Vaccine: 65+ Ye ars (1 of 1 - PCV) 2014 Influenza Vaccine (#1) 2023 Hepatitis B Vaccine Aged Out No longe r eligible based on patient's age to complete this topic Insurance [place] Care Teams Lacing Presser Relationship Specialty Start Date End Date Sammy Arambula MD [address] [place], [place] PCP - General Internal Medicine 12/29/22
--- OUTSIDE RECORDS SUMMARY | 2024-03-11 12:15 | XMS_ITS | Clinical Summary ---
Author Organization [facility] Accept Software [facility] Address [address] [place] [address] Phone Care Team Providers Care Test Engineering Technician Name Role Phone Sammy Arambula MD Primary Care Provider [phone] Allergies Active Allergy Reactions Criticality Noted Date Comments Acetaminophen Nausea And Vomiting 01/20/2023 Atorvastatin 08/23/2021 Erythromycin 08/23/2021 Medications Medication Sig Dispensed Refills Start Date End Date Status apixaban (ELIQUIS) 5 mg tablet Take 1 Tablet by mouth 2 times daily. Active metoprolol succinate (TOPROL-XL) 50 mg 24 hr tablet Take 1 Tablet by mouth daily. Active rosuvastatin (CRESTOR) 20 mg tablet Take 1 Tablet by mouth daily. Active dilTIAZem CD (CARDIZEM CD) 180 mg 24 hr capsule Take 1 capsule (180 mg total) by mouth 1 (one) time each day. 90 capsule 2 03/09/2024 Active dilTIAZem CD (CARDIZEM CD) 180 mg 24 hr capsule Take 1 Capsule by mouth daily. 03/06/2023 03/09/2024 Discontinued (Reorder) Active Problems Problem Noted Date Diagnosed Date Rectal cancer metastasized to liver 12/29/2023 Large intestine anastomotic leak 01/20/2023 Paroxysmal atrial fibrillation 05/27/2022 Assessment & Plan (12/15/2023 3:10 PM EST): The patient has had rare episodes of atrial fibrillation since he developed early postoperative atrial fibrillation following bypass surgery 10 years ago. He has been maintained on Eliquis. He was treated for a time with amiodarone but this has been discontinued for several years. He is tolerating low-dose metoprolol in combination with diltiazem. His last episode of atrial fibrillation occurred in December 2022. The patient had atrial fibrillation postoperatively following intestinal surgery. He has not had any clinically evident recurrence since that time. He is eager to discontinue Eliquis. It seems that he is not reliably taking it twice a day. We had a long discussion regarding future options. I indicated clearly that guidelines indicate continued systemic anticoagulation for paroxysmal atrial fibrillation. Given the rarity of his symptoms and his strong desire to come off of Eliquis we discussed potential options in this regard. I do feel that if he were to stop Eliquis then we would need to monitor him much more closely for subclinical recurrent episodes of atrial fibrillation. This might take the form of a 21-day R OCT monitor. Alternatively the patient could obtain an Apple Watch with daily recordings of his EKG and atrial fibrillation notification systems engaged. If he does have recurrent atrial fibrillation he would need to be on Eliquis. An alternative strategy for recurrent atrial fibrillation would be consideration of ablation therapy. The patient is quite eager to stop Eliquis but is willing to wait until after he has an Apple watch. The data regarding aspirin in the absence of Eliquis is meager but there may be some protective effects which may be counterbalanced by increased risk of bleeding with this agent. Orders: Pulse oximetry, spot ECG 12 lead Pure hypercholesterolemia 05/27/2022 Essential hypertension 08/27/2021 Atherosclerotic heart diseas e of [place] coronary artery without angina pectoris 08/23/2021 HLD (hyperlipidemia) 08/23/2021 Encounters Date Type Department Care Team Description 02/24/2024 3:00 PM EST Office Visit [facility] Hematology Oncology [address] [place] [address] Demi Hilliard MD Rectal cancer metastasized to liver (CMS/HCC) (Primary Dx) 02/15/2024 11:10 AM EST - 02/15/2024 11:59 PM EST Hospital Encounter [facility] CT Scan [address] [place] [address] Discharge Disposition: Home or Self Care 12/29/2023 1:30 PM EST Office Visit General Surgery [facility] [address] [place] [address] Leon Stevens MD Rectal cancer metastasized to liver (CMS/HCC) (Primary Dx) 12/15/2023 2:00 PM EST Office Visit [facility] Cardiology [facility] [address] [place] [phone] Fernanda Gudino MD Paroxysmal atrial fibrillation (CMS/HCC) (Primary Dx); Hypercholesterolemia ; Primary hypertension 12/14/2023 Telephone [facility] Hematology Oncology [address] [place] [address] Domenica Medeiros MA Abd/pelvis CT from Last 3 Months Surgical History Surgery Date Site/Laterality Comments CORONARY ARTERY BYPASS GRAFT OTHER SURGICAL HISTORY 01/23/2023 REPAIR OF ANASTOMATIC DEHISCENCE AND PLACEMENT OF MALECOT DRAIN Medical History Medical History Date Comments Obesity Social History Tobacco Use Types Packs/Day Years [...] file Not on file Not on file Obstetrics History Last Filed Vital Signs Vital Sign Reading Time Taken Comments Blood Pressure 135/62 02/24/2024 2:55 PM EST Pulse 65 02/24/2024 2:55 PM EST Temperature 36.8 ??C (98.3 ??F) 02/24/2024 2:55 PM ES T Respiratory Rate - - Oxygen Saturation 98% 02/24/2024 2:55 PM EST Inhaled Oxygen Concentration - - Weight 87.1 kg (192 lb) 02/24/2024 2:55 PM EST Height 177.8 cm (5' 10 ) 12/29/2023 1:41 PM EST Body Mass Index 27.55 12/29/2023 1:41 PM EST Plan of Treatment Upcoming Encounters Date Type Department Care Team (Late st Contact Info) Description 04/29/2024 10:30 AM EDT Office Visit [facility] [address] [place] [address] Leon Stevens MD [address] [address] 09/14/2024 10:30 AM EDT Office Visit [facility] Hematology Oncology [address] [place] [phone] Demi Hilliard MD [address] [place] [address] Health Maintenance Due Date Last Done Comments COVID-19 Vaccine (#1) 1954 Pneumococcal Vaccine: 65+ Years (1 of 2 - PCV) 07[birth year]12/1955 DTaP,Tdap,and Td Vaccines (1 - Tdap) 1968 Hepatitis A Vaccines (1 of 2 - Risk 2-dose series) 1968 Zoster Vaccines (1 of 2) 1968 Hepatitis B Vaccines (1 of 3 - Risk 3-dose series) 2009 RSV Immunization Patients 60 + Years Old (1 - Risk 60-74 years 1-dose series) 2009 Cholesterol Screening (Lipid Panel) 01/19/2022 Depression Screening 01/19/2022 Falls Risk Assessment 01/19/2022 Hepatitis C Screening 01/19/2022 Medicare Annual Wellness Visit 01/19/2022 Social Influencers of Health Screening 01/19/2022 Influenza Vaccine (#1) 2023 Hypertension/CHF/CAD Annual BMP Blood Test 02/14/2025 02/15/2024, 02/12/2023 Colorectal Cancer Screening: Colonoscopy 04/11/2032 04/11/2022 HIB Vaccines Aged Out No longer eligi ble based on patient's age to complete this topic HPV Vaccines Aged Out No longer eligi ble based on patient's age to complete this topic IPV Vaccines Aged Out No longer eligi ble based on patient's age to complete this topic MMR Vaccines Aged Out No longer eligi ble based on patient's age to complete this topic Meningococcal ACWY Vaccine Aged Out N o longer eligible based on patient's age to complete this topic RSV Immunization Patients Under 20 months Aged Out No longer eligible b ased on patient's age to complete this topic Varicella Vaccines Aged Out No longer eligible based on patient's age to complete this topic Procedures Procedure Name Priority Date/Time Associated Diagnosis Comments CT ABDOMEN PELVIS W CONTRAST Routine 02/15/2024 11:42 AM EST Malignant neoplasm of rectum (CMS/HCC) CREATININE, SERUM STAT 02/15/2024 7:5 3 AM EST Routine general medical examination at a health care facility BUN STAT 02/15/2024 7:53 AM EST Routine general medical examination at a health care facility ECG 12-LEAD Routine 12/15/2023 3:10 PM EST Paroxysmal atrial fibrillation (CMS/HCC) Hypercholesterolemia Primary hypertension ABLATION LIVER TUMORS PERC Routine 12/10/2023 5:37 PM EDT Fatty (change of) liver, not elsewhere classified HM COLONOSCOPY Routine 04/11/2022 from Last 3 Months or Most Recently Relevant to Health Maintenance Results * CT Abdomen Pelvis w Contrast (02/15/2024 11:42 AM EST) Anatomical Region Laterality Modality Body Computed Tomogra phy 02/21/2024 9:30 AM EST Impressions 02/21/2024 9:50 AM EST Extensive posttreatment changes around the rectosigmoid junction. No new measurable disease. Sequelae from ablation in hepatic segment 7. No definite new metastatic disease. Incidentally noted extensive atherosclerosis with lung base fibrotic changes. No short interval change in a tiny right lower lobe pulmonary nodule (0.3 cm). This was present and is unchanged when compared to 02/17/2023 which is reassuring ?? -------- FINAL REPORT -------- Dictated By: Iain Guallpa Dictated Date: 02/21/2024 09:30 ET Assigned Physician: Iain Guallpa Reviewed and Electronically Signed By: Iain Guallpa Signed Date: 02/21/2024 09:50 ET Workstation ID: [id number] Transcribed By: Self Edit Transcribed Date: 02/21/2024 09:30 ET Narrative 02/21/2024 9:50 AM EST EXAMINATION: CT ABDOMEN/PELVIS WITH IV CONTRAST CLINICAL INFORMATION: Rectosigmoid junction cancer. ?? 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 TECHNIQUE: Multidetector CT. Helical examination of the abdomen and pelvis. Imaging performed after the IV administration of contrast. Reformatting in the coronal and sagittal planes. DLP: 1194 mGy-cm Dose optimization was performed including the use of low-dose iterative reconstruction technique with automatic exposure control based on patient size. Type of contrast: ISOVUE 370 Volume of IV contrast: 90 mL Volume of contrast discarded: 0 mL FINDINGS: LIVER: There is a 3.1 cm ablation defect in the posteromedial aspect of hepatic segment 7 which abuts the capsular surface. This appears to encompass the site of the previous low attenuating mass. There is a linear low attenuation component related to access site. There is a somewhat wedge-shaped low attenuating area extending to the superior dome. This is nonspecific but does not appear to correspond to a mass. There are scattered ??additional sharply circumscribed varying sized small low attenuating liver masses. Based upon the comparison with previous and the attenuation and shape these likely represent cysts. No convincing new suspicious focal lesion. Some artifact associated with the most posterior and medial aspect of hepatic segment 5 BILIARY TRACT: ??There are some calcifications near the neck of the gallbladder. I cannot distinguish tiny calculi from arterial calcifications but these appear unchanged. There is no biliary dilation. SPLEEN: Normal size. ??No focal lesion. ?? PANCREAS: Normal; no mass or surrounding fluid. ??There are a few punctate calcifications. ADRENAL GLANDS: Normal; no mass. ?? KIDNEYS: No significant dilation of the collecting system. Nonobstructing 0.3 cm lower pole right renal calculus. Exophytic cyst deforming the upper medial right kidney unchanged. Bosniak 1. ?? GASTROINTESTINAL TRACT: ?There is circumferential stranding and thickening in the region of the rectosigmoid with amorphous soft tissue in the presacral space. No extraluminal contrast. I doubt a drainable abscess. No evidence of small bowel obstruction. The stomach is not distended. URINARY BLADDER: ??Slightly distorted. The bladder wall is thickened. No luminal gas. PELVIC VISCERA: ??No suspicious abnormality. ABDOMINAL WALL: Fat protrudes into the right inguinal canal. There is focal thinning or eventration of the left paramedian abdominal wall with small bowel loops intimately associated with the area of previous surgery. ?? LYMPHOVASCULAR STRUCTURES AND FLUID: There is extensive atherosclerosis. There is calcified and noncalcified plaque within the aorta and common iliac arteries. The portal vein and central portal branches enhance. No enlarged lymph nodes. No significant free intraperitoneal fluid. ?? VISUALIZED LOWER CHEST: The heart appears enlarged. Previous coronary artery bypass grafting. Fat protrudes through the esophageal hiatus. ?? Fibrotic and cystic changes in the lung bases. No convincing change in a peripheral 0.3 cm right lower lobe nodule (04/25) since 11/02/2023 MUSCULOSKELETAL: No acute or suspicious osseous abnormality. ??Degenerative changes in the spine with anterior volume loss at L1 Procedure Note Iain Guallpa MD - 02/21/2024 EXAMINATION: CT ABDOMEN/PELVIS WITH IV CONTRAST CLINICAL INFORMATION: Rectosigmoid junction cancer. 73-year-old Icelandic speaking man, history and physical done with thehelp of interpretation, who had rectosigmoid carcinoma treated withconcurrent chemoradiation followed by surgery but unfortunately havesignificant postoperative complication, patient had some residual disease(ypT3 N0) but patient saw me 6 to 8 months after surgery because ofpostoperative complication and did not receive any adjuvant treatment,patient on surveillance found to have oligometastatic lesion on theliver, Subsequently underwent hepatic ablation COMPARISON: Portions of CT 11/02/2023 TECHNIQUE: Multidetector CT. Helical examination of the abdomen and pelvis. Imaging performed after the IV administration of contrast. Reformatting in the coronal and sagittal planes. DLP: 1194 mGy-cm Dose optimization was performed including the use of low-dose iterativereconstruction technique with automatic exposure control based on patientsize. Type of contrast: ISOVUE 370 Volume of IV contrast: 90 mL Volume of contrast discarded: 0 mL FINDINGS: LIVER: There is a 3.1 cm ablation defect in the posteromedial aspect ofhepatic segment 7 which abuts the capsular surface. This appears toencompass the site of the previous low attenuating mass. There is a linearlow attenuation component related to access site. There is a somewhatwedge-shaped low attenuating area extending to the superior dome. This isnonspecific but does not appear to correspond to a mass. There are scattered additional sharply circumscribed varying sized smalllow attenuating liver masses. Based upon the comparison with previous andthe attenuation and shape these likely represent cysts. No convincing newsuspicious focal lesion. Some artifact associated with the most posteriorand medial aspect of hepatic segment 5 BILIARY TRACT: There are some calcifications near the neck of thegallbladder. I cannot distinguish tiny calculi from arterialcalcifications but these appear unchanged. There is no biliary dilation. SPLEEN: Normal size. No focal lesion. PANCREAS: Normal; no mass or surrounding fluid. There are a few punctatecalcifications. ADRENAL GLANDS: Normal; no mass. KIDNEYS: No significant dilation of the collecting system. Nonobstructing0.3 cm lower pole right renal calculus. Exophytic cyst deforming the uppermedial right kidney unchanged. Bosniak 1. GASTROINTESTINAL TRACT: There is circumferential stranding andthickening in the region of the rectosigmoid with amorphous soft tissue inthe presacral space. No extraluminal contrast. I doubt a drainableabscess. No evidence of small bowel obstruction. The stomach is not distended. URINARY BLADDER: Slightly distorted. The bladder wall is thickened. Noluminal gas. PELVIC VISCERA: No suspicious abnormality. ABDOMINAL WALL: Fat protrudes into the right inguinal canal. There isfocal thinning or eventration of the left paramedian abdominal wall withsmall bowel loops intimately associated with the area of previous surgery. LYMPHOVASCULAR STRUCTURES AND FLUID: There is extensive atherosclerosis.There is calcified and noncalcified plaque within the aorta and commoniliac arteries. The portal vein and central portal branches enhance. No enlarged lymph nodes. No significant free intraperitoneal fluid. VISUALIZED LOWER CHEST: The heart appears enlarged. Previous coronaryartery bypass grafting. Fat protrudes through the esophageal hiatus. Fibrotic and cystic changes in the lung bases. No convincing change in aperipheral 0.3 cm right lower lobe nodule (04/25) since 11/02/2023 MUSCULOSKELETAL: No acute or suspicious osseous abnormality. Degenerativechanges in the spine with anterior volume loss at L1 IMPRESSION: Extensive posttreatment changes around the rectosigmoid junction. No new measurable disease. Sequelae from ablation in hepatic segment 7. No definite new metastatic disease. Incidentally noted extensive atherosclerosis with lung base fibroticchanges. No short interval change in a tiny right lower lobe pulmonarynodule (0.3 cm). This was present and is unchanged when compared to02/17/2023 which is reassuring -------- FINAL REPORT -------- Dictated By: Iain Guallpa Dictated Date: 02/21/2024 09:30 ET Assigned Physician: Iain Guallpa Reviewed and Electronically Signed By: Iain Guallpa Signed Date: 02/21/2024 09:50 ET Workstation ID: [id number] Transcribed By: Self Edit Transcribed Date: 02/21/2024 09:30 ET Demi Hilliard MD IMG CT PROCEDURES * Creatinine (02/15/2024 7:53 AM EST) Creatinine 1.04 0.70 - 1.30 mg/dL LAB CHEMISTRY METHOD 02/15/2024 9:09 AM EST [facility] eGFR 75 >=60 mL/min/1. 73m2 LAB CHEMISTRY METHOD 02/15/2024 9:09 AM EST [facility] Comment:Calculation based on the??Chronic Kidney Disease Epidemiology Collaboration (CKD-EPI) equation refit??without adjustment for race. Blood Venous blood specimen / Unknown Venipuncture / Unknown 02/15/2024 7:53 AM EST 02/15/2024 8:34 AM EST Demi Hilliard MD LAB BLOOD ORDERABLES [facility] [address] [place] [address], * BUN (02/15/2024 7:53 AM EST) [facility] BUN 16 5 - 25 mg/dL LAB CHEMISTRY METHOD 02/15/2024 9:09 AM EST [facility] Blood Venous blood specimen / Unknown Venipuncture / Unknown 02/15/2024 7:53 AM EST 02/15/2024 8:34 AM EST Demi Hilliard MD LAB BLOOD ORDERABLES [facility] [address] [place] [address], * ECG 12 lead (12/15/2023 3:10 PM EST) [facility] Ventricular Rate ECG 60 BPM GEMUSE Atrial Rate 60 BPM GEMUSE P-R Interval 212 ms GEMUSE QRS Duration 96 ms GEMUSE Q-T Interval 438 ms GEMUSE QTc 438 ms GEMUSE P Wave Franklin 10 degrees GEMUSE R Franklin 16 degrees GEMUSE T Franklin 60 degrees GEMUSE ECG Interpretation Sinus rhythm with 1st degree A-V block Otherwise normal ECG When compared with ECG of 21-DEC-2022 18:59, Sinus rhythm has replaced Atrial fibrillation Vent. rate has decreased BY ??61 BPM Leads are no longer reversed Confirmed by FERNANDA GUDINO ([id number]) on 12/17/2023 3:27:11 PM GEMUSE 12/15/2023 2:29 PM EST 12/17/2023 3:27 PM EST Fernanda Gudino MD ECG ORDERABLES Performing Organization Address City/[facility]/ZIP Co de Phone Number GEMUSE * ABLATION LIVER TUMORS PERC (12/10/2023 5:37 PM EDT) Anatomical Region Laterality Modality Interventional R adiology 12/08/2023 10:3 6 AM EDT Narrative 12/10/2023 5:37 PM EDT [facility] Diagnostic Imaging Department [address] [place] [address] Patient: ??ABDOUL DIA ?/Age/Sex: 1950 - 73 - M Unit#: ??[id number] ? Location/Status: ??SPDIANGIO/REG CLI ? Mnemonic/Ordering Site: ??[id number]/SPIR Ordering Physician: ??BRENDAN SWANN MD Ablation Liver Tumors [facility] - 12/08/23 - 1446 Report Status:Signed [...] pleural/lung injury. Under progressive CT guidance, a [employer] Microwave Ablation Needle measuring 15 cm was [...] Dic Date/Time: ??12/08/23 1525 Sign date/Time: ??12/10/23 1737 Procedure Note Brendan Swann MD - 12/12/2023 [facility] Diagnostic Imaging Department [address] [place] [address] [id number] Patient: ABDOUL DIA Yue/Age/Sex: 1950 73 - M Unit#: [id number] Location/Status: SPDIANGIO/REG CLI Mnemonic/Ordering Site: [id number]/[facility] Ordering Physician: BRENDAN SWANN MD Ablation Liver [...] pleural/lung injury. Under progressive CT guidance, a [employer] Microwave AblationNeedle measuring 15 cm was advanced [...] Dic Date/Time: 12/08/23 1525 Sign date/Time: 12/10/23 5826 Brendan Swann MD IMG IR PROCEDURES * Colonoscopy (04/11/2022) Colonoscopy No interpretation , Abstracted Anatomical Region Laterality Modality Other Historical Provider MD CARYL Garibay from Last 3 Months or Most Recently Relevant to Health Maintenance Care Teams Test Engineering Technician Relationship Specialty Start Date End Date Sammy Arambula MD [address] [place] [address] PCP - General 06/02/12
--- OUTSIDE RECORDS SUMMARY | 2024-03-11 12:15 | XMS_ITS | Encounter Summary ---
Author Organization [facility] [place] [address] Care Team Providers Care Form Layer Name Role Phone Sammy Arambula MD Primary Care Provider [phone] Encounter Details Date Type Department Care Team (Late st Contact Info) Description 11/20/2023 10:35 AM EDT Hospital Encounter TH HISTORIC ENCOUNTERS EASTERN CONVERSION ONLY Demi Hilliard MD [address] [place] [address] Social History Tobacco Use Types Packs/Day Years [...] is a 73 y.o. male. 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 [...] any blood per rectum he should contact band tumbler for repeat colonoscopy I will check CT scan of abdomen pelvis prior to next visit after holidays Demi Hilliard MD documented in this encounter Plan of Treatment Upcoming Encounters Date Type Department Care Team (Late st Contact Info) Description 04/29/2024 10:30 AM EDT Office Visit General Surgery - [place] [address] [phone] Leon Stevens MD [address] [address] 09/14/2024 10:30 AM EDT Office Visit [facility] Hematology Oncology [address] [place] [phone] Demi Hilliard MD [address] [place] [address] documented as of this encounter Visit Diagnoses Not on filedocumented in this encounter Care Teams Form Layer Relationship Specialty Start Date End Date Sammy Arambula MD [address] [place] [address] PCP - General 06/02/12 documented as of this encounter
== END 2024-03-11 12:15 | disposition home or self-care (01) ==
PROVIDERS: PCP Internal Medicine; Visit Provider Internal Medicine
DX: I10 Essential (primary) hypertension (principal)

== ENCOUNTER → 2024-03-11 11:35 | Outpatient (BNVA) | payer MEDICARE, MEDICAID, SELFPAY | PROVIDERS: PCP Internal Medicine; Visit Provider Internal Medicine | DX: I10 Essential (primary) hypertension (principal) | CPT/HCPCS: 96127; 99212 ==

== ENCOUNTER 2024-05-31 08:00 | Outpatient (REF) | payer MEDICARE, MEDICAID, SELFPAY ==
--- OUTSIDE RECORDS SUMMARY | 2024-05-31 08:09 | XMS_ITS | Encounter Summary ---
Author Organization [facility] Address [address] [place] [address] Care Team Providers Care Storeroom Attendant Name Role Phone Sammy Arambula MD Primary Care Provider [phone] Encounter Details Date Type Department Care Team (Latest Contact Info) Description 12/08/2023 10:09 AM EDT Hospital Encounter TH HISTORIC ENCOUNTERS EASTERN CONVERSION ONLY Barry Morris MD [address] [place] [phone] Fatty (change of) liver, not elsewhere classified [...] Description 09/14/2024 10:30 AM EDT Office Visit [facility] Hematology Oncology [address] [place] [address] Demi Hilliard MD [address] [place] [address] 11/01/2024 1:30 PM EDT Office Visit General Surgery - [place] [address] [facility] [address] [place] [address] Leon Stevens MD [address] [place] [address] documented as of this encounter Procedures Procedure Name Priority Date/Time Associated Diagnosis Comments ABLATION LIVER TUMORS PERC Routine 12/10/2023 5:37 PM EDT Fatty (change of) liver, not elsewhere classified documented in this encounter Results * ABLATION LIVER TUMORS PERC (12/10/2023 5:37 PM EDT) Anatomical Region Laterality Modality Interventional R adiology 12/08/2023 10:3 6 AM EDT Narrative 12/10/2023 5:37 PM EDT [facility] Diagnostic Imaging Department [address] [place] [address] Patient: ??NELDA ESPARZA ?/Age/Sex: 1950 - 73 - M Unit#: ??[id number] ? Location/Status: ??SPDIANGIO/REG CLI ? Mnemonic/Ordering Site: ??[id number]/SPIR Ordering Physician: ??BRENDAN SWANN MD Ablation Liver Tumors Perc - 12/08/23 - 0230 Report Status:Signed History: Patient with metastatic colorectal [...] pleural/lung injury. Under progressive CT guidance, a [employer] Microwave Ablation Needle measuring 15 cm was [...] Dic Date/Time: ??12/08/23 1525 Sign date/Time: ??12/10/23 0341 Procedure Note Brendan Swann MD - 12/12/2023 [facility] Diagnostic Imaging Department [address] [place] [address] Patient: NELDA ESPARZA /Age/Sex: 1950 - 73 - M Unit#: [id number] [facility] Mnemonic/Ordering Site: [place] [address]/[facility] Ordering Physician: BRENDAN SWANN MD Ablation Liver Tumors [facility] - 12/08/23 - 1446 Report Status:Signed History: [...] pleural/lung injury. Under progressive CT guidance, a [employer] Microwave AblationNeedle measuring 15 cm was advanced [...] classified documented in this encounter Care Teams Storeroom Attendant Relationship Specialty Start Date End Date Sammy Arambula MD [address] [place] [address] PCP - General 06/02/12 documented as of this encounter
--- OUTSIDE RECORDS SUMMARY | 2024-05-31 08:09 | XMS_ITS | Clinical Summary ---
Author Organization [facility] Address [address] [place] [address] Care Team Providers Care Typing Bookkeeper Name Role Phone Sammy Arambula MD Primary Care Provider [phone] Allergies Active Allergy Reactions Criticality Noted Date [...] age to complete this topic Care Teams Typing Bookkeeper Relationship Specialty Start Date End Date Sammy Arambula MD [address] [place] [address] [place] [address] PCP - General Internal Medicine 04/29/22
--- OUTSIDE RECORDS SUMMARY | 2024-05-31 08:09 | XMS_ITS | Encounter Summary ---
Author Organization [facility] Address [address] [place] [address] Care Team Providers Care Combination Building Inspector Name Role Phone Sammy Arambula MD Primary Care Provider [phone] Encounter Details Date Type Department Care Team (Late st Contact Info) Description 11/20/2023 10:35 AM EDT Hospital Encounter TH HISTORIC ENCOUNTERS EASTERN CONVERSION ONLY Demi Hilliard MD [address] [place] [address] Social History Tobacco Use Types Packs/Day Years [...] is a 73 y.o. male. 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 Hematology Oncology [address] [place] [phone] Demi Hilliard MD [address] [place] [address] 11/01/2024 1:30 PM EDT Office Visit General Surgery - [place] [address] [phone] Leon Stevens MD [address] [address] documented as of this encounter Visit Diagnoses Not on filedocumented in this encounter Care Teams Combination Building Inspector Relationship Specialty Start Date End Date Sammy Arambula MD [address] [place] [address] PCP - General 06/02/12 documented as of this encounter
--- OUTSIDE RECORDS SUMMARY | 2024-05-31 08:09 | XMS_ITS | Encounter Summary ---
Author Organization [facility] Address [address] [place] [address] Care Team Providers Care Integrity Analyst Name Role Phone Sammy Arambula MD Primary Care Provider [phone] Encounter Details Date Type Department Care Team Description 05/30/2022 Social Work [facility] Oncology Services [address] [place] [address] Mariaelena Corbin, [facility] Social History Tobacco Use Types Packs/Day Years [...] on filedocumented in this encounter Care Teams Integrity Analyst Relationship Specialty Start Date End Date Sammy Arambula MD [address] [place] [address] [place] [address] PCP - General Internal Medicine 04/29/22 documented as of this encounter
--- OUTSIDE RECORDS SUMMARY | 2024-05-31 08:09 | XMS_ITS | Clinical Summary ---
Author Organization [facility] Address [address] [address] Care Team Providers Care Flight/Transport Nurse Name Role Phone Sammy Arambula MD Primary Care Provider [phone] Social History Tobacco Use Types Packs/Day Years [...] Colorectal Cancer Screening: Sigmoidoscopy 1998 Pneumococcal Vaccine: 50+ Ye ars (1 - PCV) 07/12/1999 Influenza Vaccine (Season Ended) 2024 Hepatitis B Vaccine Aged Out No longe r eligible based on patient's age to complete this topic Insurance [place] Medicaid [place] Care Teams Flight/Transport Nurse Relationship Specialty Start Date End Date Sammy Arambula MD [address] [place], [place] PCP - General Internal Medicine 12/29/22
--- OUTSIDE RECORDS SUMMARY | 2024-05-31 08:09 | XMS_ITS | Encounter Summary ---
Author Organization [facility] Address [address] [place] [address] Care Team Providers Care Convolute Tube Winder Name Role Phone Sammy Arambula MD Primary Care Provider [phone] Encounter Details Date Type Department Care Team Description 05/09/2022 Social Work [facility] Oncology Services [address] [place] [address] Mariaelena Corbin, [facility] Social History Tobacco Use Types Packs/Day Years [...] on filedocumented in this encounter Care Teams Convolute Tube Winder Relationship Specialty Start Date End Date Sammy Arambula MD [address] [place] [address] [place] [address] PCP - General Internal Medicine 04/29/22 documented as of this encounter
--- OUTSIDE RECORDS SUMMARY | 2024-05-31 08:09 | XMS_ITS | Clinical Summary ---
Author Organization [facility] [employer] [facility] Address [address] [place] [facility] [place] [address] Phone Care Team Providers Care Percussion Teacher Name Role Phone Sammy Arambula MD Primary Care Provider [phone] Allergies Active Allergy Reactions Criticality Noted Date Comments Acetaminophen Nausea And Vomiting 01/20/2023 Atorvastatin 08/23/2021 Erythromycin 08/23/2021 Medications apixaban (ELIQUIS) 5 mg tablet Take 1 Tablet by mouth 2 times daily. Active metoprolol succinate (TOPROL-XL) 50 mg 24 hr tablet Take 1 Tablet by mouth daily. Active rosuvastatin (CRESTOR) 20 mg tablet Take 1 Tablet by mouth daily. Active dilTIAZem CD (CARDIZEM CD) 180 mg 24 hr capsule TAKE 1 CAPSULE BY MOUTH DAILY 90 capsule 1 04/06/2024 Active Active Problems Problem Noted Date Diagnosed Date Rectal cancer metastasized t o liver (CMS/HCC V24, CMS/HCC V28) 12/29/2023 Large intestine anastomotic leak 01/20/2023 Paroxysmal atrial fibrillation (CMS/HCC V24, CMS /HCC V28) 05/27/2022 Assessment & Plan (12/15/2023 3:10 PM [...] hypertension 08/27/2021 Atherosclerotic heart diseas e of [place] coronary artery without angina pectoris 08/23/2021 HLD (hyperlipidemia) 08/23/2021 Encounters Date Type Department Care Team Description 04/29/2024 10:30 AM EDT Office Visit General Surgery - [address] [place] [address] Leon Stevens MD Rectal cancer metastasized to liver (CMS/HCC V24, CMS/HCC V28) (Primary Dx) from Last 3 Months Surgical History Surgery [...] on file Sexual Orientation Not on file Obstetrics History Last Filed Vital Signs Vital Sign Reading Time Taken Comments Blood Pressure 121/71 04/29/2024 10:33 AM EDT Pulse 65 04/29/2024 10:33 AM EDT Temperature 36.8 ??C (98.3 ??F) 02/24/2024 2:55 PM ES T Respiratory Rate - - Oxygen Saturation 98% 02/24/2024 2:55 PM EST Inhaled Oxygen Concentration - - Weight 86.2 kg (190 lb) 04/29/2024 10:33 AM EDT Height 177.8 cm (5' 10 ) 04/29/2024 10:33 AM EDT Body Mass Index 27.26 04/29/2024 10:33 AM EDT Plan of Treatment Upcoming Encounters Date Type Department Care Team (Late st Contact Info) Description 09/14/2024 10:30 AM EDT Office Visit [facility] Hematology Oncology [address] [place] [phone] Demi Hilliard MD [address] [place] [address] 11/01/2024 1:30 PM EDT Office Visit General Surgery - [place] [address] [phone] Leon Stevens MD [address] [address] Health Maintenance Due Date Last Done Comments COVID-19 Vaccine (#1) 1954 DTaP,Tdap,and Td Vaccines (1 - Tdap) 1968 Hepatitis A Vaccines (1 of 2 - Risk 2-dose series) 1968 Pneumococcal Vaccine: 50+ Years (1 of 2 - PCV) 1968 Zoster Vaccines (1 of 2) 1968 Hepatitis B Vaccines (1 of 3 - Risk 3-dose series) 2009 RSV Immunization Adult Patients (1 - Risk 60-74 years 1-dose series) 2009 Cholesterol Screening (Lipid Panel) 01/19/2022 Depression Screening 01/19/2022 Falls Risk Assessment 01/19/2022 Hepatitis C Screening 01/19/2022 Medicare Annual Wellness Visit 01/19/2022 Social Influencers of Health Screening 01/19/2022 Influenza Vaccine (Season Ended) 2024 Hypertension/CHF/CAD Annual BMP Blood Test 02/14/2025 02/15/2024, [...] patient's age to complete this topic Meningococcal B Vaccine Aged Out No l onger eligible based on patient's age to complete this topic RSV Immunization Patients Under 20 months Aged Out No longer eligible b ased on patient's age to complete this topic Varicella Vaccines Aged Out No longer eligible based on patient's age to complete this topic Procedures Procedure Name Priority Date/Time Associated Diagnosis Comments CREATININE, SERUM STAT 02/15/2024 7:5 3 AM EST Routine general medical examination at a health care facility COLONOSCOPY Routine 04/11/2022 from Last 3 Months or Most Recently Relevant to Health Maintenance Results * Creatinine (02/15/2024 7:53 AM EST) Creatinine [...] EST Demi Hilliard MD LAB BLOOD ORDERABLES Final R esult [facility] [address] [place] [address], * Colonoscopy (04/11/2022) Colonoscopy No interpretation , Abstracted Anatomical Region Laterality Modality Other Historical Provider HEALTH MAINTENANCE Final Result from Last 3 Months or Most Recently Relevant to Health Maintenance Insurance MEDICARE MEDICAID - [place] Care Teams Percussion Teacher Relationship Specialty Start Date End Date Sammy Arambula MD [address] [place] [address] PCP - General 06/02/12
[2024-05-31 10:32] LABS: Cholesterol 131 mg/dL (<200); HDL Cholesterol 36 mg/dL (>40); LDL Cholesterol Calculated 71 mg/dL (<100); Triglycerides 124 mg/dL (<150)
== END 2024-05-31 08:01 | disposition home or self-care (01) ==
LOC: HO.10HDL 08:00
PROVIDERS: Visit Provider Internal Medicine
DX: Z13.220 Encounter for screening for lipoid disorders (principal); Z13.6 Encounter for screening for cardiovascular disorders
CPT/HCPCS: 36415; 80061

== ENCOUNTER 2024-06-10 10:47 | Outpatient (AMB) | payer MEDICARE, MEDICAID, SELFPAY ==
[2024-06-10 10:50] VITALS: BP 150/74; PULSE 68; RESP 18; TEMP 37.1; O2SAT 97; BMI 28.5
--- NOTE | 2024-06-10 10:50 | A.OFFPC_ITS ---
Vital Signs 06/10/24 10:50 06/10/24 11:37 Height 5 ft 8 in Weight 187 lb 9.6 oz BMI 28.5 BP 150/74 H 130/72 Blood Pressure Location Lt brachial Lt brachial Position Sitting Sitting Respiration 18 Pulse 68 Pulse Source Pulse Oximeter Temp 98.8 F Temp Source Oral Pulse Oximetry (%) 97 Oxygen Delivery Method Room Air Intake Visit Reasons: ME[facility]O FROM [facility]/3 mo follow up Radiographer Technologist Required: No Accompanied by: Spouse Allergies atorvastatin [Lipitor] Allergy (Unknown, Verified 06/10/24 11:31) nausea and vomiting acetaminophen [From Tylenol] Allergy (Verified 06/10/24 11:31) Unknown Erythromycin Allergy (Unknown, Uncoded 06/10/24 11:31) Unknown Medication List - Last Reconciled 06/10/24 by ESTEFANI Montanez apixaban (Eliquis) 5 mg PO BID blood pressure monitor (Blood Pressure Kit) As directed Crestor (rosuvastatin) 20 mg PO DAILY 90 days NS diltiazem HCl CD 180 mg PO DAILY metoprolol succinate ER 150 mg (1.5 x 100 mg) PO BID PRN Tobacco use date assessed: 06/10/24 Fall risk assessment: No Falls in past year Last assessed Fall Risk: 06/10/24 Dental Screening Dental Screen Date: 06/10/24 Did you have a dental visit in the last 12 months?: Yes Did you have a dental problem in the last 6 months where you did not have access to dental care?: No Was dental information given to patient?: Patient has dentist HPI ME[facility]O FROM [facility]/3 mo follow up HPI Details The patient is a 73-year-old male presenting for a 3 month follow appt focus on reviewing chronic conditions. Recently a patient of Dr. Arambula, who retired. He has a history of hyperlipidemia controlled with Crestor, witnessing an improvement in lipid profile with decreased triglycerides, total cholesterol, and LDL. An area to address is the slightly low HDL, for which omega-3 fish oil was suggested. His hypertension is under control with diltiazem, initially presenting with elevated readings but stabilizing at 130/72 upon retake. 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 Followed by cardiology through [facility]. He reports good control of blood sugar with an A1c of 5.7. There have been no recent episodes of arrhythmias, shortness of breath, chest pain, edema, or gastrointestinal issues. [facility] Medical History (Updated 06/14/24 @ 04:51 by ESTEFANI Montanez) Paroxysmal atrial fibrillation Coronary artery disease Hypertension Colon cancer Obesity Hyperlipidemia Surgical History History of creation of ostomy Hx of CABG Family History Father No problems noted. Mother No problems noted. Social History Housing: House Alcohol intake: never Patient Tobacco Use Status: Never used Tobacco Tobacco use type: Cigarette e-Cigarette/Vaping Use: Never Used Second Hand Smoke Exposure: No service: No Current occupational status: retired Cognitive needs: No Hearing needs: Yes Vision needs: No Questionnaire PHQ-9 Over the last 2 weeks, how often have you been bothered by any of the following problems? 1. Little interest or pleasure in doing things: not at all 2. Feeling down, depressed, or hopeless: not at all 3. Trouble falling or staying asleep, or sleeping too much: not at all 4. Feeling tired or having little energy: not at all 5. Poor appetite or overeating: not at all 6. Feeling bad about yourself - or that you are a failure or have let yourself or your family down: not at all 7. Trouble concentrating on things, such as reading the newspaper or watching television: not at all 8. Moving or speaking so slowly that other people could have noticed. Or the opposite - being so fidgety or restless that you have been moving around a lot more than usual: not at all 9. Thoughts that you would be better off or of hurting yourself in some way: not at all Total score: 0 Depression Screening Interpretation: Negative Depression Screening Done: Yes 38040 - PHQ-9 Billing: Yes Source: Developed by Drs. Silvestre Montesinos, Kaitlin Zhu, Brad Retana and colleagues, with an educational eliazar from [employer] Thrive Questionnaire Date Thrive assessed: 06/10/24 I am a: Patient What is your living situation today?: I have a steady place to live Within the past 12 months, did the food you bought not last and you didn't have the money to get more?: Never true Within the past 12 months, did you worry whether your food would run out before you got money to buy more?: Never true Do you have trouble paying for medicines?: No Do you have trouble getting transportation to medical appointments?: No Do you have trouble paying your heating and electricity bill?: No Do you have trouble taking care of your child, family member or friend?: No Do you have trouble with day-to-day activities such as bathing, preparing meals, shopping, managing finances, etc.?: No Are you currently unemployed and looking for a job?: Yes Are you interested in more education?: No Please select the resources that you would like help with: None Currently or been in a relationship where the following occur: No concerns reported THRIVE Score: 0 AUDIT C Alcohol Use Questionnaire (AUDIT-C) 1. How often do you have a drink containing alcohol?: Never Total Score: 0 Score Reviewed/Action Taken: No SOLANGE-7 AMB Questionnaire SOLANGE-7 Date SOLANGE - 7 assessed: 06/10/24 Feeling nervous, anxious, or on edge: 0 = Not at all Not being able to stop or control worryin = Not at all Worrying too much about different things: 0 = Not at all Trouble relaxin = Not at all Being so restless that it is hard to sit still: 0 = Not at all Becoming easily annoyed or irritable: 0 = Not at all Feeling afraid as if something awful might happen: 0 = Not at all Total SOLANGE-7 score (0-4 normal; 5-9 mild; 10-14 moderate; 15-21 severe): 0 Source: Developed by Drs. Silvestre Montesinos, Kaitlin Zhu, Brad Retana and colleagues, with an educational eliazar from [employer] ([employer]). SOLANGE-7 Assessment Billing SOLANGE-7 Assessment Tool: SOLANGE-7 Assessment 92289 Review of Systems Neuro Denies Abnormal speech present Physical exam (Primary Care) Vital Signs: Last Vital Signs Temp 98.8 F 06/10/24 10:50 Pulse 68 06/10/24 10:50 Resp 18 06/10/24 10:50 BP 130/72 06/10/24 11:37 Pulse Ox 97 06/10/24 10:50 Oxygen Delivery Method Room Air 06/10/24 10:50 BMI result Body Mass Index 28.5 Tobacco/Smoking Status: Tobacco use Status Tobacco use date assessed 06/10/24 06/10/24 10:52 Patient Tobacco Use Status Never used Tobacco 06/10/24 10:52 Tobacco use type Cigarette 06/10/24 10:52 e-Cigarette/Vaping Use Never Used 06/10/24 10:52 PHQ-9: PHQ-9 Score PHQ-9: Total score 0 06/10/24 15:57 Depression Screening Interpretation: Negative Thrive Assessment: Date of Thrive Assessment Date Thrive assessed 06/10/24 06/10/24 10:52 Currently or been in a relationship where the following occur: No concerns reported Const General: healthy appearing, no acute distress, alert and awake Nutritional Appearance: well nourished Orientation/consciousness: oriented to person, oriented to place and oriented to time HENMT Ears: TM's normal bilaterally General nose exam: Normal nasal mucous membranes and turbinates present Eyes Conjunctivae: conjunctivae normal Sclerae: sclerae normal Pupils: Equal, round and reactive pupils present Neck Neck: Yes no lymphadenopathy and Yes no JVD Thyroid: Thyroid normal Carotids: no bruits Resp Effort & Inspection: normal respiratory effort and not tachypneic Auscultation: no crackles, no rales, no rhonchi and no wheezes Cardio Rate: regular rate Rhythm: regular rhythm Heart sounds: no murmurs and normal S1 and S2 GI Palpation (GI): Soft to palpation, nontender, no hepatomegaly and no splenomegaly Auscultation: normal bowel sounds Skin General skin exam: no rashes or lesions noted and dry skin Neuro General: oriented to person, oriented to place and oriented to time Cranial nerves: Yes Equal, round and reactive pupils present Speech: No Abnormal speech present Gait exam (Neuro): Normal gait present Motor exam (neuro): no tremor noted Extrem Right upper extremity: full ROM Left upper extremity: full ROM Right lower extremity: full ROM; no edema Left lower extremity: full ROM; no edema Psych Mental Status: mental status grossly normal Speech and movement: Normal speech and movement present Affect: normal affect Attitude: cooperative Thought process: Normal thought process present Results AMB Hemoglobin A1c AMB Hemoglobin A1c 5.7 % Last Edit by Mili Rowan CMA on 06/10/24 11:16 Results Reviewed Results Reviewed: Laboratory Last Values Hgb A1c (Clinic) 5.7 % (4.0-6.0) 06/10/24 11:15 Coding Level of Care Code Est Pt Level 4 (38256) Diagnoses Paroxysmal atrial fibrillation I48.0 Hypertension, unspecified type I10 Hypertension type: unspecified Coronary artery disease involving mcgrath coronary artery of mcgrath heart without angina pectoris I25.10 Coronary Disease-Associated Artery/Lesion type: mcgrath artery [place] vs. transplanted heart: mcgrath heart Associated angina: without angina Pure hypercholesterolemia E78.00 Hyperlipidemia type: pure hypercholesterolemia Additional Codes SOLANGE-7 Assessment Billing - SOLANGE-7 Assessment Tool: SOLANGE-7 Assessment 29832 ([id number]) PHQ-9 - 45112 - PHQ-9 Billing: Yes ([id number]) Time Spent (min) 41 Assessment & Plan Assessment & Plan (1) Paroxysmal atrial fibrillation: Code(s): I48.0 - Paroxysmal atrial fibrillation Category: Medical (2) Hypertension: Code(s): I10 - Essential (primary) hypertension Category: Medical Qualifiers: Hypertension type: unspecified Qualified Code(s): I10 - Essential (primary) hypertension (3) Coronary artery disease: Code(s): I25.10 - Atherosclerotic heart disease of mcgrath coronary artery without angina pectoris Category: Medical Qualifiers: Coronary Disease-Associated Artery/Lesion type: mcgrath artery [place] vs. transplanted heart: mcgrath heart Associated angina: without angina Qualified Code(s): I25.10 - Atherosclerotic heart disease of mcgrath coronary artery without angina pectoris (4) Hyperlipidemia: Code(s): E78.5 - Hyperlipidemia, unspecified Category: Medical Qualifiers: Hyperlipidemia type: pure hypercholesterolemia Qualified Code(s): E78.00 - Pure hypercholesterolemia, unspecified Plan I confirmed continuation of current medications: Crestor for dyslipidemia, diltiazem for hypertension control, and Apixaban for thromboembolic prevention associated with stents and PAF. Encouraged omega-3 use to elevate HDL, advised to maintain blood pressure checks for hypertension, and emphasized that he should adhere to cardiology consultations with cardiology through [facility]. Reinforced the importance of managing lipid profiles alongside monitoring glycemic control. Patient was informed and verbally consented to the use of an ambient scribe for clinic note documentation during this visit. Orders: Orders Lipid Panel 3 Months E66.9 - Obesity, unspecified, E78.5 - Hyperlipidemia, unspecified, I10 - Essential (primary) hypertension, I25.10 - Atherosclerotic heart disease of mcgrath coronary artery without angina pectoris AMB Hemoglobin A1c 06/10/24 R73.01 - Impaired fasting glucose Complete Blood Count Auto Diff 3 Months E66.9 - Obesity, unspecified, E78.5 - Hyperlipidemia, unspecified, I10 - Essential (primary) hypertension, I25.10 - Atherosclerotic heart disease of mcgrath coronary artery without angina pectoris Comprehensive [place]. Panel Fast 3 Months E66.9 - Obesity, unspecified, E78.5 - Hyperlipidemia, unspecified, I10 - Essential (primary) hypertension, I25.10 - Atherosclerotic heart disease of mcgrath coronary artery without angina pectoris Vitamin D 25-OH Total 3 Months E66.9 - Obesity, unspecified, E78.5 - Hyperlipidemia, unspecified, I10 - Essential (primary) hypertension, I25.10 - Atherosclerotic heart disease of mcgrath coronary artery without angina pectoris UA CC w/rflx Micro + Cult 3 Months E66.9 - Obesity, unspecified, E78.5 - Hyperlipidemia, unspecified, I10 - Essential (primary) hypertension, I25.10 - Atherosclerotic heart disease of mcgrath coronary artery without angina pectoris TSH reflex Free T4 3 Months E66.9 - Obesity, unspecified, E78.5 - Hyperlipidemia, unspecified, I10 - Essential (primary) hypertension, I25.10 - Atherosclerotic heart disease of mcgrath coronary artery without angina pectoris Glucose Fasting 3 Months E66.9 - Obesity, unspecified, E78.5 - Hyperlipidemia, unspecified, I10 - Essential (primary) hypertension, I25.10 - Atherosclerotic heart disease of mcgrath coronary artery without angina pectoris Patient Instructions: - Continue taking prescribed medications: Crestor, diltiazem, Apixaban - Consider omega-3 supplementation to enhance HDL levels - Monitor blood pressure regularly - Keep routine cardiology appointments with cardiology - Stay aware of any new symptoms like chest pain or shortness of breath
[2024-06-10 11:37] VITALS: BP 130/72
--- OUTSIDE RECORDS SUMMARY | 2024-06-10 11:54 | XMS_ITS | Encounter Summary ---
Author Organization [facility] Address [address] [place] [address] Care Team Providers Care Director Of Quality Name Role Phone Sammy Arambula MD Primary Care Provider [phone] Encounter Details Date Type Department Care Team Description 05/30/2022 Social Work [facility] Oncology Services [address] [place] [address] Mariaelena Corbin, [facility] Social History Tobacco Use Types Packs/Day Years [...] on filedocumented in this encounter Care Teams Director Of Quality Relationship Specialty Start Date End Date Sammy Arambula MD [address] [place] [address] [place] [address] PCP - General Internal Medicine 04/29/22 documented as of this encounter
--- OUTSIDE RECORDS SUMMARY | 2024-06-10 11:54 | XMS_ITS | Encounter Summary ---
Author Organization [facility] Address [address] [place] [address] Care Team Providers Care Manufacturing Finance Manager Name Role Phone Sammy Arambula MD Primary Care Provider [phone] Encounter Details Date Type Department Care Team (Latest Contact Info) Description 12/08/2023 10:09 AM EDT Hospital Encounter TH HISTORIC ENCOUNTERS EASTERN CONVERSION ONLY Baryr Morris MD [address] [place] [address] Fatty (change of) liver, not elsewhere classified [...] Description 09/14/2024 10:30 AM EDT Office Visit [facility] Hematology Oncology [address] [place] [address] Demi Hilliard MD [address] [place] [address] 11/01/2024 1:30 PM EDT Office Visit General Surgery - [place] [address] [facility] [address] [place] [address] Leon Stevens MD [address] [place] [address] documented as of this encounter Procedures Procedure Name Priority Date/Time Associated Diagnosis Comments ABLATION LIVER TUMORS PERC Routine 12/10/2023 5:37 PM EDT Fatty (change of) liver, not elsewhere classified documented in this encounter Results * ABLATION LIVER TUMORS PERC (12/10/2023 5:37 PM EDT) Anatomical Region Laterality Modality Interventional R adiology 12/08/2023 10:3 6 AM EDT Narrative 12/10/2023 5:37 PM EDT [facility] Diagnostic Imaging Department [address] [place] [address] Patient: ??ABDOUL ESPARZA ?/Age/Sex: 1950 - 73 - M Unit#: ??[id number] ? Location/Status: ??SPDIANGIO/REG CLI ? Mnemonic/Ordering Site: ??[id number]/SPIR Ordering Physician: ??BRENDAN SWANN MD Ablation Liver Tumors Perc - 12/08/23 - 1165 Report Status:Signed History: Patient with metastatic colorectal [...] pleural/lung injury. Under progressive CT guidance, a [employer] Microwave Ablation Needle measuring 15 cm was [...] Dic Date/Time: ??12/08/23 1525 Sign date/Time: ??12/10/23 0235 Procedure Note Brendan Swann MD - 12/12/2023 [facility] Diagnostic Imaging Department [address] [place] [address] Patient: ABDOUL ESPARZA /Age/Sex: 1950 - 73 - M Unit#: [id number] [facility] Mnemonic/Ordering Site: [place] [address]/[facility] Ordering Physician: BRENDAN SWANN MD Ablation Liver Tumors [facility] - 12/08/23 - 1446 Report Status:Signed [...] pleural/lung injury. Under progressive CT guidance, a [employer] Microwave AblationNeedle measuring 15 cm was advanced [...] classified documented in this encounter Care Teams Manufacturing Finance Manager Relationship Specialty Start Date End Date Sammy Arambula MD [address] [place] [address] PCP - General 06/02/12 documented as of this encounter
--- OUTSIDE RECORDS SUMMARY | 2024-06-10 11:54 | XMS_ITS | Clinical Summary ---
Author Organization [facility] Address [address] [place] [address] Phone Care Team Providers Care Rhythmic Gymnastics Coach Name Role Phone Sammy Arambula MD Primary Care Provider [phone] Allergies Active Allergy Reactions Criticality Noted Date [...] hypertension 08/27/2021 Atherosclerotic heart diseas e of telida coronary artery without angina pectoris 08/23/2021 HLD (hyperlipidemia) 08/23/2021 Encounters Date Type Department Care Team Description 04/29/2024 10:30 AM EDT Office Visit General Surgery - [address] [place] [address] Leon Stevens MD Rectal cancer [...] Visit [facility] Hematology Oncology [address] [place] [phone] Demi Hilliard MD [address] [place] [address] 11/01/2024 1:30 PM EDT Office Visit General Surgery - [place] [address] [phone] Loen Stevens MD [address] [address] Health Maintenance Due Date Last Done Comments [...] LAB CHEMISTRY METHOD 02/15/2024 9:09 AM EST [facility] eGFR 75 >=60 mL/min/1. 73m2 LAB CHEMISTRY METHOD 02/15/2024 9:09 AM EST [facility] Comment:Calculation based on the??Chronic Kidney Disease Epidemiology Collaboration (CKD-EPI) equation refit??without adjustment for race. Blood Venous blood specimen / Unknown Venipuncture / Unknown 02/15/2024 7:53 AM EST 02/15/2024 8:34 AM EST Demi Hilliard MD LAB BLOOD ORDERABLES Final R esult [facility] [address] [place] [address], * Colonoscopy (04/11/2022) Colonoscopy No interpretation , Abstracted Anatomical Region Laterality Modality Other Historical Provider HEALTH MAINTENANCE Final Result from Last 3 Months or Most Recently Relevant to Health Maintenance Insurance MEDICARE MEDICAID - [place] Care Teams Rhythmic Gymnastics Coach Relationship Specialty Start Date End Date Sammy Arambula MD [address] [place] [address] PCP - General 06/02/12
--- OUTSIDE RECORDS SUMMARY | 2024-06-10 11:54 | XMS_ITS | Encounter Summary ---
Author Organization [facility] [place] [address] Care Team Providers Care Candy Starch Mold Printer Name Role Phone Sammy Arambula MD Primary Care Provider [phone] Encounter Details Date Type Department Care Team (Late st Contact Info) Description 11/20/2023 10:35 AM EDT Hospital Encounter TH HISTORIC ENCOUNTERS EASTERN CONVERSION ONLY Demi Hilliard MD [address] [place] [address] Social History Tobacco Use Types Packs/Day Years [...] is a 73 y.o. male. 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 [...] any blood per rectum he should contact double end trimmer for repeat colonoscopy I will check CT scan of abdomen pelvis prior to next visit after holidays Demi Hilliard MD documented in this encounter Plan of Treatment Upcoming Encounters Date Type Department Care Team (Late st Contact Info) Description 09/14/2024 10:30 AM EDT Office Visit [facility] Hematology Oncology [address] [place] [phone] Demi Hilliard MD [address] [place] [address] 11/01/2024 1:30 PM EDT Office Visit General Surgery - [place] [address] [phone] Leon Stevens MD [address] [address] documented as of this encounter Visit Diagnoses Not on filedocumented in this encounter Care Teams Candy Starch Mold Printer Relationship Specialty Start Date End Date Sammy Arambula MD [address] [place] [address] PCP - General 06/02/12 documented as of this encounter
--- OUTSIDE RECORDS SUMMARY | 2024-06-10 11:54 | XMS_ITS | Clinical Summary ---
Author Organization [facility] Address [address] [address] Care Team Providers Care Coupling Machine Operator Name Role Phone Sammy Arambula MD Primary Care Provider [phone] Social History Tobacco Use Types Packs/Day Years [...] Medicaid [place] Care Teams Coupling Machine Operator Relationship Specialty Start Date End Date Sammy Arambula MD [address] [place], [place] PCP - General Internal Medicine 12/29/22
--- OUTSIDE RECORDS SUMMARY | 2024-06-10 11:54 | XMS_ITS | Clinical Summary ---
Author Organization [facility] Address [address] [place] [address] Care Team Providers Care Veneer Splicer Name Role Phone Sammy Arambula MD Primary Care Provider Allergies Active Allergy Reactions Criticality Noted Date [...] age to complete this topic Care Teams Veneer Splicer Relationship Specialty Start Date End Date Sammy Arambula MD [address] [place] [address] [place] [address] PCP - General Internal Medicine 04/29/22
--- OUTSIDE RECORDS SUMMARY | 2024-06-10 11:54 | XMS_ITS | Encounter Summary ---
Author Organization [facility] Address [address] [place] [address] Care Team Providers Care Clasp Machine Operator Name Role Phone Sammy Arambula MD Primary Care Provider [phone] Encounter Details Date Type Department Care Team Description 05/09/2022 Social Work [facility] Oncology Services [address] [place] [address] Mariaelena Corbin, [facility] Social History Tobacco Use Types Packs/Day Years [...] on filedocumented in this encounter Care Teams Clasp Machine Operator Relationship Specialty Start Date End Date Sammy Arambula MD [address] [place] [address] [place] [address] PCP - General Internal Medicine 04/29/22 documented as of this encounter
== END 2024-06-10 11:59 | disposition home or self-care (01) ==
LOC: HO.HMCH 10:48
PROVIDERS: PCP Internal Medicine
DX: R73.01 Impaired fasting glucose (principal)

== ENCOUNTER → 2024-06-10 10:47 | Outpatient (BNVA) | payer MEDICARE, MEDICAID, SELFPAY | PROVIDERS: PCP Internal Medicine | DX: Z13.1 Encounter for screening for diabetes mellitus (principal); I48.0 Paroxysmal atrial fibrillation; I10 Essential (primary) hypertension; I25.10 Atherosclerotic heart disease of native coronary artery without angina pectoris; E78.00 Pure hypercholesterolemia, unspecified | CPT/HCPCS: 83036; 96127; 99212 ==

== ENCOUNTER 2024-07-08 10:22 | Outpatient (REF) | payer MEDICARE, MEDICAID, SELFPAY ==
--- NOTE | 2024-07-08 11:22 | ECG_ITS ---
Test Reason : PREOP Blood Pressure : */* mmHG Vent. Rate : 61 BPM Atrial Rate : 61 BPM P-R Int : 216 ms QRS Dur : 108 ms QT Int : 438 ms P-R-T Axes : 62 3 36 degrees QTcB Int : 440 ms Sinus rhythm with 1st degree A-V block with Premature supraventricular complexes Otherwise normal ECG No previous ECGs available Referred By: Edvin Lyon Electronically Signed By: ESTRELLA MAE MD
[2024-07-08 11:43] LABS: MANUAL DIFF FLAG NO
[2024-07-08 12:15] LABS: Appearance Urine Clear; Color Urine Yellow; Glucose Urine UA Negative (Negative); Leukocyte Esterase Urine Negative (Negative); Nitrite Urine Negative (Negative); PH 5.5 (5.0-9.0); Urine Blood Negative (Negative); Urine Ketones Negative (Negative); Urine Protein Negative (Neg-Trace)
[2024-07-08 12:22] LABS: Basophils Percent Auto 0.4 % (0-2); Eosinophils Absolute Auto 0.1 X10*3/uL (0.0-0.4); Eosinophils Percent Auto 1.8 % (0-4); Estimated Average Glucose 117 mg/dL; Hematocrit 41.6 % (42.0-52.0); Hemoglobin 14.6 g/dl (14.0-18.0); Hemoglobin A1c % 5.7 % (<6.0); Imm Gran Abs Auto 0.02 X10*3/uL (0.00-0.03); Imm Gran Pct Auto 0.4 % (0.0-0.4); Lymphocytes Percent Auto 17.8 % (20-40); Mean Corpuscular HGB Conc 35.1 g/dl (31.0-36.0); Mean Corpuscular Hemoglobin 30.9 pg (27.0-33.0); Mean Corpuscular Volume 87.9 fL (80.0-98.0); Monocytes Absolute Auto 0.6 X10*3/uL (0.1-1.2); Monocytes Percent Auto 10.8 % (2-11); Neutrophils Absolute Auto 3.8 x10*3/uL (2.0-8.3); Neutrophils Percent Auto 68.8 % (45-73); Platelet Count 76 X10*3/uL (160-400); Red Blood Count 4.73 X10*6/uL (4.60-5.80); Red Cell Distribution Width 12.7 % (11.0-16.0); White Blood Count 5.6 X10*3/uL (4.8-10.8)
[2024-07-08 12:50] LABS: B Type Natriuretic Peptide 69 pg/mL (<100)
[2024-07-08 13:23] LABS: Alanine Aminotransferase 12 U/L (0-40); Albumin Level 4.5 g/dL (3.5-5.0); Alkaline Phosphatase 68 U/L (39-117); Anion Gap 11 (12-20); Aspartate Amino Transferase 18 U/L (5-37); Blood Urea Nitrogen 18 mg/dL (9-16); Calcium 9.4 mg/dL (8.4-10.2); Carbon Dioxide 25 mmol/L (22-29); Chloride 110 mmol/L (96-108); Estimated Glomerular Filt Rate > 60; Glucose Random 109 mg/dL (60-115); Sodium 142 mmol/L (135-145); Total Protein 7.2 g/dL (6.5-8.0)
== END 2024-07-08 10:23 | disposition home or self-care (01) ==
LOC: HO.LAB 10:22
DX: Z01.818 Encounter for other preprocedural examination (principal); H26.9 Unspecified cataract; I48.0 Paroxysmal atrial fibrillation; I10 Essential (primary) hypertension; I25.10 Atherosclerotic heart disease of native coronary artery without angina pectoris; E78.00 Pure hypercholesterolemia, unspecified; Z79.01 Long term (current) use of anticoagulants; Z79.899 Other long term (current) drug therapy
CPT/HCPCS: 36415; 80053; 81003; 83036; 83880; 84443; 85025; 93005; 99212

== ENCOUNTER 2024-07-08 10:22 | Outpatient (AMB) | payer MEDICARE, MEDICAID, SELFPAY ==
--- NOTE | 2024-07-08 10:28 | MHC.PC.OV ---
Vital Signs 07/08/24 10:29 Height 5 ft 8 in Weight 186 lb 8 oz BMI 28.4 BP 140/66 H Blood Pressure Location Lt brachial Position Sitting Pulse 64 Pulse Source Pulse Oximeter Temp 97.3 F Temp Source Temporal Artery Scan Pulse Oximetry (%) 98 Oxygen Delivery Method Room Air Intake Visit Reasons: Cataract surgery in left eye Intake Note: Patient is here for a Pre-op for Cataract left eye scheduled with Dr Zaragoza on 07/21/24 . Guillotine Trimmer Required: No Wire Loop Machine Operator: Present Accompanied by: Daughter Allergies atorvastatin [Lipitor] Allergy (Unknown, Verified 07/08/24 10:36) nausea and vomiting acetaminophen [From Tylenol] Allergy (Verified 07/08/24 10:36) Unknown Erythromycin Allergy (Unknown, Uncoded 07/08/24 10:36) Unknown Tobacco use date assessed: 07/08/24 Fall risk assessment: No Falls in past year Last assessed Fall Risk: 07/08/24 Dental Screening Dental Screen Date: 06/10/24 HPI Cataract surgery in left eye HPI Details The patient is a 74-year-old male accompanied by daughter presenting for cataract surgery clearance. Longstanding cataracts significantly impacting vision, describes as a feeling of cloudiness in vision. Plans of cataract surgery of the left on 07/21/2024. Surgeon/location: Dr Zaragoza that [place], [place] ANESTHESIA: MAC. Patient reports major surgical interventions related to colon cancer treatment. Received general anesthesia without any complications. Patient denies any post surgery hypothermia or clotting disorder. Patient has a history of AFib in his prescribed apixaban 5 mg b.i.d. Self reports stopping this medication six-month ago without consulting with Cardiology. Reports there has been discussion around possibly stopping the patient medication by Cardiology due to ongoing normal sinus rhythm. The patient was supposed to be monitored via apple watch or Holter monitor and then a decision would have been made. Per daughter, the patient AFib symptoms only occurred during stressful situations in the past, which going for surgery could be placed in this category, even though, it is not major in nature; it all depends on how the pateint perceives the procedure. Instructed patient to start back has a apixaban, which will reach therapeutic range in 4 days. In order, to be proceed with the cataract surgery. After the surgery, coordinate with Cardiology to discontinue apixaban safely. Medical history significant for paroxysmal atrial fibrillation, colon cancer status post surgical intervention, htn, CAD, HLD Patient denies chest pain, SOB, heart palpitation, and dizziness PFSH Medical History (Updated 07/08/24 @ 10:38 by ESTEFANI Montanez) Paroxysmal atrial fibrillation Coronary artery disease Hypertension Colon cancer Obesity Hyperlipidemia Surgical History History of creation of ostomy Hx of CABG Family History Father No problems noted. Mother No problems noted. Social History Housing: House Alcohol intake: never Patient Tobacco Use Status: Never used Tobacco Tobacco use type: Cigarette e-Cigarette/Vaping Use: Never Used Second Hand Smoke Exposure: No service: No Current occupational status: retired Cognitive needs: No Hearing needs: Yes Vision needs: No Questionnaire Thrive Questionnaire Date Thrive assessed: 06/10/24 I am a: Patient What is your living situation today?: I have a steady place to live Within the past 12 months, did the food you bought not last and you didn't have the money to get more?: Never true Within the past 12 months, did you worry whether your food would run out before you got money to buy more?: Never true Do you have trouble paying for medicines?: No Do you have trouble getting transportation to medical appointments?: No Do you have trouble paying your heating and electricity bill?: No Do you have trouble taking care of your child, family member or friend?: No Do you have trouble with day-to-day activities such as bathing, preparing meals, shopping, managing finances, etc.?: No Are you currently unemployed and looking for a job?: Yes Are you interested in more education?: No Please select the resources that you would like help with: None Currently or been in a relationship where the following occur: No concerns reported THRIVE Score: 0 SOLANGE-7 AMB Questionnaire SOLANGE-7 Date SOLANGE - 7 assessed: 06/10/24 Source: Developed by Drs. Silvestre Montesinos, Kaitlin Zhu, Brad Retana and colleagues, with an educational eliazar from [employer]. Review of Systems Const Denies headache(s) Eyes Reports change in vision, Reports decreased night vision and Denies loss of vision ENT Denies vertigo, Denies dizziness, Denies headache(s) and Denies sore throat Card Denies chest pain, Denies leg edema and Denies lightheadedness Resp Denies cough, Denies hemoptysis and Denies wheezing GI Denies abdominal pain, Denies melena, Denies constipation, Denies diarrhea and Denies vomiting Denies dysuria, Denies urinary frequency and Denies urinary urgency Neuro Denies Abnormal speech present, Denies vertigo, Denies dizziness, Denies headache(s) and Denies loss of vision Dustin/Lymph Denies easy bleeding and Denies easy bruising Aller/Immun Denies wheezing Physical exam (Primary Care) Vital Signs: Last Vital Signs Temp 97.3 F 07/08/24 10:29 Pulse 64 07/08/24 10:29 BP 140/66 H 07/08/24 10:29 Pulse Ox 98 07/08/24 10:29 Oxygen Delivery Method Room Air 07/08/24 10:29 BMI result Body Mass Index 28.4 Tobacco/Smoking Status: Tobacco use Status Tobacco use date assessed 07/08/24 07/08/24 10:35 Patient Tobacco Use Status Never used Tobacco 07/08/24 10:35 Tobacco use type Cigarette 07/08/24 10:35 e-Cigarette/Vaping Use Never Used 07/08/24 10:35 Thrive Assessment: Date of Thrive Assessment Date Thrive assessed 06/10/24 07/08/24 10:35 Currently or been in a relationship where the following occur: No concerns reported Const General: healthy appearing, no acute distress, alert and awake Nutritional Appearance: well nourished Orientation/consciousness: oriented to person, oriented to place and oriented to time HENMT Ears: TM's normal bilaterally General nose exam: Normal nasal mucous membranes and turbinates present Eyes Conjunctivae: conjunctivae normal Sclerae: sclerae normal Pupils: Equal, round and reactive pupils present Neck Neck: Yes no lymphadenopathy and Yes no JVD Thyroid: Thyroid normal Carotids: no bruits Resp Effort & Inspection: normal respiratory effort and not tachypneic Auscultation: no crackles, no rales, no rhonchi and no wheezes Cardio Rate: regular rate Rhythm: regular rhythm Heart sounds: no murmurs and normal S1 and S2 GI Palpation (GI): Soft to palpation, nontender, no hepatomegaly and no splenomegaly Auscultation: normal bowel sounds Skin General skin exam: no rashes or lesions noted and dry skin Neuro General: oriented to person, oriented to place and oriented to time Cranial nerves: Yes Equal, round and reactive pupils present Speech: No Abnormal speech present Gait exam (Neuro): Normal gait present Motor exam (neuro): no tremor noted Extrem Right upper extremity: full ROM Left upper extremity: full ROM Right lower extremity: full ROM, edema Details: 1+ and lower leg Left lower extremity: full ROM, edema Details: 1+ and lower leg Psych Mental Status: mental status grossly normal Speech and movement: Normal speech and movement present Affect: normal affect Attitude: cooperative Thought process: Normal thought process present Results Reviewed Results Reviewed: Laboratory Tests 05/31/24 07/08/24 07/08/24 08:04 11:37 11:42 WBC 5.6 RBC 4.73 Hgb 14.6 Hct 41.6 L MCV 87.9 MCH 30.9 MCHC 35.1 RDW 12.7 Plt Count 76 L Sodium 142 Potassium 4.0 Chloride 110 H Carbon Dioxide 25 Anion Gap 11 L BUN 18 H Creatinine 0.95 Estimated GFR > 60 Random Glucose 109 Estimat Average Glucose 117 Hemoglobin A1c % 5.7 Calcium 9.4 Total Bilirubin 1.0 AST 18 ALT 12 Alkaline Phosphatase 68 B-Natriuretic Peptide 69 Total Protein 7.2 Albumin 4.5 Triglycerides 124 Cholesterol 131 LDL Cholesterol, Calc 71 HDL Cholesterol 36 L TSH 0.70 Urine Color Yellow Urine Appearance Clear Urine pH 5.5 Ur Specific [place] 1.020 Urine Protein Negative Urine Glucose (UA) Negative Urine Ketones Negative Urine Blood Negative Urine Nitrite Negative Ur Leukocyte Esterase Negative Coding Level of Care Code Est Pt Level 4 (85701) Diagnoses Preoperative clearance Z01.818 Paroxysmal atrial fibrillation I48.0 Hypertension, unspecified type I10 Hypertension type: unspecified Coronary artery disease involving [place] coronary artery of [place] heart without angina pectoris I25.10 Associated angina: without angina Coronary Disease-Associated Artery/Lesion type: [place] artery [place] vs. transplanted heart: [place] heart Pure hypercholesterolemia E78.00 Hyperlipidemia type: pure hypercholesterolemia Time Spent (min) 39 Assessment & Plan Assessment & Plan (1) Preoperative clearance: Code(s): Z01.818 - Encounter for other preprocedural examination Category: Medical Plan: Regarding preop clearance, the patient is at acceptable risk for proposed surgery. As long as the patient follow through with plan of starting back his apixaban, he is at acceptable risk. Reviewed with the patient that no surgery is completely free of risk and that this examination is to assist the surgeon in reviewing informed consent. (2) Paroxysmal atrial fibrillation: Code(s): I48.0 - Paroxysmal atrial fibrillation Category: Medical Plan: Restarted apixaban 5 mg b.i.d.. Patient to coordinate with Cardiology to safely discontinue apixaban after procedure. Continue Crestor 20 mg daily. EKG:Sinus rhythm with 1st degree A-V block with Premature supraventricular complexes Otherwise normal ECG (3) Hypertension: Code(s): I10 - Essential (primary) hypertension Category: Medical Qualifiers: Hypertension type: unspecified Qualified Code(s): I10 - Essential (primary) hypertension Plan: BP slightly above goal Reinforced low-salt diet Continue diltiazem 180 mg daily and metoprolol succinate ER 150 mg b.i.d. (4) Coronary artery disease: Code(s): I25.10 - Atherosclerotic heart disease of [place] coronary artery without angina pectoris Category: Medical Qualifiers: Associated angina: without angina Coronary Disease-Associated Artery/Lesion type: [place] artery [place] vs. transplanted heart: [place] heart Qualified Code(s): I25.10 - Atherosclerotic heart disease of [place] coronary artery without angina pectoris Plan: Stable-denies chest pain with or without exertion Continues rosuvastatin 20 mg daily and apixaban 5 mg b.i.d. (5) Hyperlipidemia: Code(s): E78.5 - Hyperlipidemia, unspecified Category: Medical Qualifiers: Hyperlipidemia type: pure hypercholesterolemia Qualified Code(s): E78.00 - Pure hypercholesterolemia, unspecified Plan: Triglycerides 124, total cholesterol 132, LDL 71, HDL 36 Reinforced low-cholesterol and activity as tolerated Continue rosuvastatin 20 mg daily Orders: Orders Complete Blood Count Auto Diff 07/08/24 I10 - Essential (primary) hypertension, I25.10 - Atherosclerotic heart disease of [place] coronary artery without angina pectoris, I48.0 - Paroxysmal atrial fibrillation, Z01.818 - Encounter for other preprocedural examination Hemoglobin A1c 07/08/24 I10 - Essential (primary) hypertension, I25.10 - Atherosclerotic heart disease of [place] coronary artery without angina pectoris, I48.0 - Paroxysmal atrial fibrillation, Z01.818 - Encounter for other preprocedural examination B Type Natriuretic Peptide 07/08/24 I10 - Essential (primary) hypertension, I25.10 - Atherosclerotic heart disease of [place] coronary artery without angina pectoris, I48.0 - Paroxysmal atrial fibrillation, Z01.818 - Encounter for other preprocedural examination Comprehensive Met. Panel 07/08/24 I10 - Essential (primary) hypertension, I25.10 - Atherosclerotic heart disease of [place] coronary artery without angina pectoris, I48.0 - Paroxysmal atrial fibrillation, Z01.818 - Encounter for other preprocedural examination TSH reflex Free T4 07/08/24 I10 - Essential (primary) hypertension, I25.10 - Atherosclerotic heart disease of [place] coronary artery without angina pectoris, I48.0 - Paroxysmal atrial fibrillation, Z01.818 - Encounter for other preprocedural examination UA CC w/rflx Micro + Cult 07/08/24 I10 - Essential (primary) hypertension, I25.10 - Atherosclerotic heart disease of [place] coronary artery without angina pectoris, I48.0 - Paroxysmal atrial fibrillation, Z01.818 - Encounter for other preprocedural examination ECG 12 lead EKG 07/08/24 I48.0 - Paroxysmal atrial fibrillation, Z01.818 - Encounter for other preprocedural examination Medications: New apixaban 5 mg PO BID 60 tabs 3RF Changed From metoprolol succinate ER 150 mg (1.5 x 100 mg) PO BID PRN 180 tabs 3RF hypertension To metoprolol succinate ER 150 mg (1.5 x 100 mg) PO BID 180 tabs 3RF hypertension
[2024-07-08 10:29] VITALS: BP 140/66; PULSE 64; TEMP 36.3; O2SAT 98; BMI 28.4
--- OUTSIDE RECORDS SUMMARY | 2024-07-08 11:03 | XMS_ITS | Encounter Summary ---
Author Organization [facility] Address [address] [place] [address] Care Team Providers Care Local Government Legislator Name Role Phone Sammy Arambula MD Primary Care Provider [phone] Encounter Details Date Type Department Care Team (Latest Contact Info) Description 12/08/2023 10:09 AM EDT Hospital Encounter TH HISTORIC ENCOUNTERS [facility]AST[facility] CONVERSION ONLY Barry Morris MD [address] [place] [id number] Fatty (change of) liver, not elsewhere classified [...] 09/14/2024 10:30 AM EDT Office Visit [facility] Hematology Oncology [address] [place] [address] Demi Hilliard MD [address] [place] [address] 11/01/2024 1:30 PM EDT Office Visit General Surgery - [place] [address] [facility] [address] [place] [address] Leno Stevens MD [address] [place] [id number] documented as of this encounter Procedures Procedure Name Priority Date/Time Associated Diagnosis Comments ABLATION LIVER TUMORS PERC Routine 12/10/2023 5:37 PM EDT Fatty (change of) liver, not elsewhere classified documented in this encounter Results * ABLATION LIVER TUMORS PERC (12/10/2023 5:37 PM EDT) Anatomical Region Laterality Modality Interventional R adiology 12/08/2023 10:3 6 AM EDT Narrative 12/10/2023 5:37 PM EDT [facility] Diagnostic Imaging Department [address] [place] [address] Patient: ??ABDOUL ESPARZA ?/Age/Sex: 1950 - 73 - M Unit#: ??[id number] ? Location/Status: ??SPDIANGIO/REG CLI ? Mnemonic/Ordering Site: ??[id number]/SPIR Ordering Physician: ??BRENDAN SWANN MD Ablation Liver Tumors Perc - 12/08/23 - 3181 Report Status:Signed History: Patient with metastatic colorectal [...] pleural/lung injury. Under progressive CT guidance, a [employer] Microwave Ablation Needle measuring 15 cm was [...] Dic Date/Time: ??12/08/23 1525 Sign date/Time: ??12/10/23 8136 Procedure Note Brendan Swann MD - 12/12/2023 [facility] Diagnostic Imaging Department [address] [place] [address] Patient: ABDOUL ESPARZA /Age/Sex: 1950 - 73 - M Unit#: [id number] [facility] Mnemonic/Ordering Site: [place] [address]/[facility] Ordering Physician: BRENDAN SWANN MD Ablation Liver Tumors [facility] - 12/08/23 - 1446 Report Status:Signed [...] pleural/lung injury. Under progressive CT guidance, a [employer] Microwave AblationNeedle measuring 15 cm was advanced [...] classified documented in this encounter Care Teams Local Government Legislator Relationship Specialty Start Date End Date Sammy Arambula MD [address] [place] [id number] PCP - General 06/02/12 documented as of this encounter
== END 2024-07-08 12:15 | disposition home or self-care (01) ==
LOC: HO.HMCH 10:23
PROVIDERS: PCP Internal Medicine
DX: Z01.818 Encounter for other preprocedural examination (principal); I48.0 Paroxysmal atrial fibrillation; I10 Essential (primary) hypertension; I25.10 Atherosclerotic heart disease of native coronary artery without angina pectoris; E78.00 Pure hypercholesterolemia, unspecified

== ENCOUNTER → 2024-07-08 11:22 | Outpatient (BNV) | payer MEDICARE, MEDICAID, SELFPAY | PROVIDERS: Visit Provider Internal Medicine Cardiovascular Disease | DX: I44.0 Atrioventricular block, first degree (principal); I49.1 Atrial premature depolarization | CPT/HCPCS: 93010 ==

== ENCOUNTER 2024-09-05 08:58 | Outpatient (REF) | payer MEDICARE, MEDICAID, SELFPAY ==
--- OUTSIDE RECORDS SUMMARY | 2024-09-05 09:32 | XMS_ITS | Clinical Summary ---
Author Organization [facility] Address [address] [address] Care Team Providers Care Clinical Laboratory Manager Name Role Phone Sammy Arambula MD Primary Care Provider [phone] Social History Tobacco Use Types Packs/Day Years [...] 1998 Pneumococcal Vaccine: 50+ Ye ars (1 of 1 - PCV) 07/12/1999 Influenza Vaccine (#1) 2024 Hepatitis B Vaccine Aged Out No longe r eligible based on patient's age to complete this topic Insurance Medicare Medicaid [place] Care Teams Clinical Laboratory Manager Relationship Specialty Start Date End Date Sammy Arambula MD [address] [place], [place] PCP - General Internal Medicine 12/29/22
--- OUTSIDE RECORDS SUMMARY | 2024-09-05 09:32 | XMS_ITS | Clinical Summary ---
Author Organization [facility] Address [address] [place] [address] Care Team Providers Care Telecommunications Field Technician Name Role Phone Sammy Arambula MD Primary Care Provider [phone] Allergies Active Allergy Reactions Criticality Noted Date [...] 71 11/20/2023 10:47 AM EDT Temperature 36.7 C (98.1 F) 11/20/2023 10:47 AM EDT Respiratory Rate - - Oxygen Saturation 98% [...] Screening (Colonoscopy) 1994 Fall Risk Assessment 2014 RSV Adult > 60+ Yrs or Pregn ant (1 - 1-dose 75+ series) 2024 Influenza Vaccine (#1) 2024 Hepatitis B Vaccines Aged Out No long er eligible based on patient's age to complete this topic RSV Ped < 20 months Aged Out No longe r eligible based on patient's age to complete this topic Care Teams Telecommunications Field Technician Relationship Specialty Start Date End Date Sammy Arambula MD [address] [place] [address] [place] [address] PCP - General Internal Medicine 04/29/22
[2024-09-05 10:01] LABS: MANUAL DIFF FLAG NO
[2024-09-05 10:21] LABS: Hematocrit 41.4 % (42.0-52.0); Hemoglobin 14.0 g/dl (14.0-18.0); Imm Gran Abs Auto 0.04 X10*3/uL (0.00-0.03); Imm Gran Pct Auto 0.6 % (0.0-0.4); Lymphocytes Absolute Auto 1.2 X10*3/uL (1.2-4.9); Mean Corpuscular HGB Conc 33.8 g/dl (31.0-36.0); Mean Corpuscular Hemoglobin 30.4 pg (27.0-33.0); Mean Corpuscular Volume 90.0 fL (80.0-98.0); NRBC Abs Auto 0.000 X10*3/uL (0.0-0.012); NRBC Pct Auto 0.0 /100WBC (0.0-0.2); Platelet Count 101 X10*3/uL (160-400); Red Blood Count 4.60 X10*6/uL (4.60-5.80); White Blood Count 7.1 X10*3/uL (4.8-10.8)
[2024-09-05 10:27] LABS: Appearance Urine Clear; Glucose Urine UA Negative (Negative); PH 5.5 (5.0-9.0); Specific Gravity - Urine 1.020 (1.005-1.025)
[2024-09-05 10:47] LABS: Alanine Aminotransferase 17 U/L (0-40); Albumin Level 4.6 g/dL (3.5-5.0); Alkaline Phosphatase 75 U/L (39-117); Anion Gap 12 (12-20); Aspartate Amino Transferase 20 U/L (5-37); Blood Urea Nitrogen 18 mg/dL (9-16); Calcium 9.2 mg/dL (8.4-10.2); Carbon Dioxide 23 mmol/L (22-29); Chloride 110 mmol/L (96-108); Cholesterol 125 mg/dL (<200); Estimated Glomerular Filt Rate > 60; HDL Cholesterol 36 mg/dL (>40); Potassium 4.5 mmol/L (3.3-5.1); Sodium 140 mmol/L (135-145); Total Protein 7.4 g/dL (6.5-8.0); Triglycerides 95 mg/dL (<150)
== END 2024-09-05 08:59 | disposition home or self-care (01) ==
LOC: HO.10HDL 08:58
DX: I25.10 Atherosclerotic heart disease of native coronary artery without angina pectoris (principal); I10 Essential (primary) hypertension; E78.5 Hyperlipidemia, unspecified; E66.9 Obesity, unspecified
CPT/HCPCS: 36415; 80053; 80061; 81003; 82306; 84443; 85025

== ENCOUNTER 2024-09-13 09:28 | Outpatient (AMB) | payer MEDICARE, MEDICAID, SELFPAY ==
--- OUTSIDE RECORDS SUMMARY | 2023-12-08 10:09 | XMS_ITS | Encounter Summary ---
Author Organization [facility] Address [address] [place] [address] Care Team Providers Care Bottle Capping Machine Operator Name Role Phone Sammy Arambula MD Primary Care Provider [phone] Encounter Details Date Type Department Care Team (Latest Contact Info) Description 12/08/2023 10:09 AM EDT Hospital Encounter TH HISTORIC ENCOUNTERS EASTERN CONVERSION ONLY Barry Morris MD [address] [place] [id number] Fatty (change of) liver, not elsewhere classified Social History Tobacco Use Types Packs/Day Years [...] on file documented as of this encounter Plan of Treatment Upcoming Encounters Date Type Department Care Team (Late st Contact Info) Description 09/14/2024 10:30 AM EDT Office Visit [facility] Hematology Oncology [address] [place] [address] Demi Hilliard MD [address] [place] [address] 11/01/2024 1:30 PM EDT Office Visit General Surgery - [place] 175 [facility] [address] [place] [address] Leon Stevens MD 175 [facility] [address] [place] [address] documented as of this encounter Procedures Procedure Name Priority Date/Time Associated Diagnosis Comments ABLATION LIVER TUMORS PERC Routine 12/10/2023 5:37 PM EDT Fatty (change of) liver, not elsewhere classified documented in this encounter Results * ABLATION LIVER TUMORS PERC (12/10/2023 5:37 PM EDT) Anatomical Region Laterality Modality Interventional R adiology 12/08/2023 10:3 6 AM EDT Narrative 12/10/2023 5:37 PM EDT [facility] Diagnostic Imaging Department [address] [place] [address] Patient: ISAIASNELDA /Age/Sex: 1950 - 73 - M Unit#: [id number] [facility]/Ordering Site: [place] [address]/[facility] Ordering Physician: BRENDAN SWANN MD Ablation Liver Tumors Perc - 12/08/23 - 6170 Report Status:Signed History: Patient with metastatic colorectal cancer Procedure performed: 1. Fluoroscopic guided catheterization of the peritoneal space with advancement of a catheter over the dome of the liver. 2. Infusion of saline through the peritoneal catheter to push the liver away from the pleural surface. 3. CT guided microwave ablation of a tumor measuring just over 2 cm in segment 7 of the liver. 4. Tract ablation following microwave ablation Physician: Anesthesia: IV moderate sedation with intravenous fentanyl and versed was administered under my supervision with continuous physiologic monitoring for 30 minutes during placement of the peritoneal catheter. 6 mL of 1% lidocaine was used for this portion of the procedure. For the ablation, 8 mL of 2% lidocaine was administered at the access site. General anesthesia was used for the procedure. See anesthesiology note for further description. Specimen: None Drain: None Estimated blood loss: Minimal Complications: None Procedure in detail: Informed and written consent was obtained and placed in the patient's chart. The patient was 1st positioned supine on the angiography table. Sterile preparation of the right lateral abdomen was performed. Under ultrasound and fluoroscopic guidance, a micropuncture needle was inserted 1 cm into the right hepatic lobe parenchyma. While the patient exhaled, a Nitrex needle was carefully steered superiorly around the hepatic capsule to the dome of the liver. We transitioned for a stiff Glidewire over which a hockey-stick catheter was advanced to the dome of the liver. This was secured in place. The patient was transferred to the CT examination table. Preliminary CT scan was performed. We retracted the peritoneal catheter roughly 10 cm to a more optimal position. We then infused roughly 500 mL of saline. It appeared that the fluid was almost more pleural, but regardless there was separation from the lung and we felt adequate hepatic parenchyma to perform the ablation with surgical margins and a low risk of pleural/lung injury. Under progressive CT guidance, a Viraxrint Microwave Ablation Needle measuring 15 cm was advanced into the tumor, the visualization of which was enhanced with IV contrast. We did two ablations at 75 Peter with overlapping margins allowing for a longer ablation zone. Each ablation was 3.1 cm long x 2.8 cm wide for three minutes at both locations but since we . With two ablations, the total length of the ablation was roughly 4 cm long. We felt that following these ablations that we had fully treated the tumor with at least 5 to 10 mm margins at all locations. We were satisfied with this. A tract ablation was performed as the needle was removed and a sterile dressing was applied. The peritoneal catheter was also removed and a sterile dressing applied at this location as well. Summary: Successful CT-guided microwave ablation of a metastatic liver lesion as described. Dictating Physician: BRENDAN SWANN MD Electronically Signed by: BRENDAN SWANN MD Dic Date/Time: 12/08/23 1525 Sign date/Time: 12/10/23 4077 Procedure Note Brendan Swann MD - 12/12/2023 [facility] Diagnostic Imaging Department [address] [place] [phone] Patient: NELDA ESPARZA /Age/Sex: 1950 - 73 - M Unit#: [id number] Location/Status: [facility] CLI Mnemonic/Ordering Site: [id number] Ordering Physician: BRENDAN SWANN MD Ablation Liver Tumors Perc - 12/08/23 - 1446 Report Status:Signed History: Patient with metastatic colorectal cancer Procedure performed: 1. Fluoroscopic guided catheterization of the peritoneal space with advancement of a catheter over the dome of the liver. 2. Infusion of saline through the peritoneal catheter to push the liveraway from the pleural surface. 3. CT guided microwave ablation of a tumor measuring just over 2 cm insegment 7 of the liver. 4. Tract ablation following microwave ablation Physician: Anesthesia: IV moderate sedation with intravenous fentanyl and versedwas administered under my supervision with continuous physiologic monitoringfor 30 minutes during placement of the peritoneal catheter. 6 mL of 1% lidocainewas used for this portion of the procedure. For the ablation, 8 mL of 2%lidocaine was administered at the access site. General anesthesia was used forthe procedure. See anesthesiology note for further description. Specimen: None Drain: None Estimated blood loss: Minimal Complications: None Procedure in detail: Informed and written consent was obtained and placedin the patient's chart. The patient was 1st positioned supine on theangiography table. Sterile preparation of the right lateral abdomen was performed.Under ultrasound and fluoroscopic guidance, a micropuncture needle was inserted1 cm into the right hepatic lobe parenchyma. While the patient exhaled, aNitrex needle was carefully steered superiorly around the hepatic capsule to thedome of the liver. We transitioned for a stiff Glidewire over which ahockey-stick catheter was advanced to the dome of the liver. This was secured inplace. The patient was transferred to the CT examination table. Preliminary CTscan was performed. We retracted the peritoneal catheter roughly 10 cm to sakina optimal position. We then infused roughly 500 mL of saline. It appearedthat the fluid was almost more pleural, but regardless there was separationfrom the lung and we felt adequate hepatic parenchyma to perform the ablationwith surgical margins and a low risk of pleural/lung injury. Under progressive CT guidance, a Tivityt Microwave AblationNeedle measuring 15 cm was advanced into the tumor, the visualization of whichwas enhanced with IV contrast. We did two ablations at 75 Peter withoverlapping margins allowing for a longer ablation zone. Each ablation was 3.1 cm longx 2.8 cm wide for three minutes at both locations but since we . With twoablations, the total length of the ablation was roughly 4 cm long. We felt thatfollowing these ablations that we had fully treated the tumor with at least 5 to 10mm margins at all locations. We were satisfied with this. A tract ablationwas performed as the needle was removed and a sterile dressing was applied.The peritoneal catheter was also removed and a sterile dressing applied atthis location as well. Summary: Successful CT-guided microwave ablation of a metastatic liverlesion as described. Dictating Physician: BRENDAN SWANN MD Electronically Signed by: BRENDAN SWANN MD Dic Date/Time: 12/08/23 1523 Sign date/Time: 12/10/23 8112 us Brendan Swann MD IMG IR PROCEDURES Final Re sult documented in this encounter Visit Diagnoses Diagnosis Fatty (change of) liver, not elsewhere classified documented in this encounter Care Teams Bottle Capping Machine Operator Relationship Specialty Start Date End Date Sammy Arambula MD [address] [place] [address] PCP - General 06/02/12 documented as of this encounter
[2024-09-13 09:30] VITALS: BP 126/62; PULSE 59; RESP 18; O2SAT 97; BMI 28.2
--- NOTE | 2024-09-13 09:30 | A.OFFPC_ITS ---
Vital Signs 09/13/24 09:30 Height 5 ft 8 in Weight 185 lb 4 oz BMI 28.2 BP 126/62 Blood Pressure Location Lt brachial Position Sitting Respiration 18 Pulse 59 Pulse Source Pulse Oximeter Temp Source Temporal Artery Scan Pulse Oximetry (%) 97 Oxygen Delivery Method Room Air Intake Visit Reasons: cad/hld/htn Director Of Fundraising Required: Yes Director Of Fundraising Name: Daughter Information Interpreted: clinical only Cognos Consultant: Present Accompanied by: daughter and Allergies atorvastatin (Lipitor) Allergy (Unknown, Verified 09/13/24 09:57) nausea and vomiting acetaminophen (From Tylenol) Allergy (Verified 09/13/24 09:57) Unknown Erythromycin Allergy (Unknown, Uncoded 09/13/24 09:57) Unknown Medication List - Last Reconciled 09/13/24 by ESTEFANI Montanez apixaban 5 mg PO BID blood pressure monitor (Blood Pressure Kit) As directed Crestor (rosuvastatin) 20 mg PO DAILY 90 days NS diltiazem HCl CD 180 mg PO DAILY metoprolol succinate ER 150 mg (1.5 x 100 mg) PO BID Tobacco use date assessed: 09/13/24 Fall risk assessment: No Falls in past year Last assessed Fall Risk: 09/13/24 Dental Screening Dental Screen Date: 09/13/24 Did you have a dental visit in the last 12 months?: Yes Did you have a dental problem in the last 6 months where you did not have access to dental care?: No Was dental information given to patient?: Patient has dentist HPI cad/hld/htn HPI Details The patient is a 74-year-old male presenting for management of atrial fibrillation and hyperlipidemia. The patient has been experiencing atrial fibrillation, which was detected using an Apple Watch, with one recorded episode of spontaneous atrial fibrillation. He felt the episode when it occurred, but there have been no significant side e ffects from the medication Eliquis, which he is currently taking. The patient's cholesterol levels were discussed, with a total cholesterol of 125 mg/dL and HDL cholesterol at 36 mg/dL. The bessemer converter operator recommended increasing the HDL cholesterol to over 50 mg/dL for cardiac protection, suggesting omega-3 supplementation. [facility] Medical History Paroxysmal atrial fibrillation Coronary artery disease Hypertension Colon cancer Obesity Hyperlipidemia Surgical History History of creation of ostomy Hx of CABG Family History Father No problems noted. Mother No problems noted. Social History Housing: House Alcohol intake: never Patient Tobacco Use Status: Never used Tobacco Tobacco use type: Cigarette e-Cigarette/Vaping Use: Never Used Second Hand Smoke Exposure: No service: No Current occupational status: retired Cognitive needs: No Hearing needs: Yes Vision needs: No Questionnaire PHQ-9 Over the last 2 weeks, how often have you been bothered by any of the following problems? 1. Little interest or pleasure in doing things: not at all 2. Feeling down, depressed, or hopeless: not at all 3. Trouble falling or staying asleep, or sleeping too much: not at all 4. Feeling tired or having little energy: not at all 5. Poor appetite or overeating: not at all 6. Feeling bad about yourself - or that you are a failure or have let yourself or your family down: not at all 7. Trouble concentrating on things, such as reading the newspaper or watching television: not at all 8. Moving or speaking so slowly that other people could have noticed. Or the opposite - being so fidgety or restless that you have been moving around a lot more than usual: not at all 9. Thoughts that you would be better off or of hurting yourself in some way: not at all Total score: 0 Depression Screening Interpretation: Negative Depression Screening Done: Yes Source: Developed by Drs. Silvestre Montesinos, Kaitlin Zhu, Brad Retana and colleagues, with an educational eliazar from [employer]. Thrive Questionnaire Date Thrive assessed: 09/13/24 I am a: Patient What is your living situation today?: I have a steady place to live Within the past 12 months, did the food you bought not last and you didn't have the money to get more?: Never true Within the past 12 months, did you worry whether your food would run out before you got money to buy more?: Never true Do you have trouble paying for medicines?: No Do you have trouble getting transportation to medical appointments?: No Do you have trouble paying your heating and electricity bill?: No Do you have trouble taking care of your child, family member or friend?: No Do you have trouble with day-to-day activities such as bathing, preparing meals, shopping, managing finances, etc.?: No Are you currently unemployed and looking for a job?: Yes Are you interested in more education?: No Please select the resources that you would like help with: None Currently or been in a relationship where the following occur: No concerns reported THRIVE Score: 0 AUDIT C Alcohol Use Questionnaire (AUDIT-C) 1. How often do you have a drink containing alcohol?: Never 3. How often do you have six or more drinks on one occasion?: Never Total Score: 0 Score Reviewed/Action Taken: No SOLANGE-7 AMB Questionnaire SOLANGE-7 Date SOLANGE - 7 assessed: 09/13/24 Feeling nervous, anxious, or on edge: 0 = Not at all Not being able to stop or control worryin = Not at all Worrying too much about different things: 0 = Not at all Trouble relaxin = Not at all Being so restless that it is hard to sit still: 0 = Not at all Becoming easily annoyed or irritable: 0 = Not at all Feeling afraid as if something awful might happen: 0 = Not at all Total SOLANGE-7 score (0-4 normal; 5-9 mild; 10-14 moderate; 15-21 severe): 0 Source: Developed by Drs. Silvestre Montesinos, Kaitlin Zhu, Brad Retana and colleagues, with an educational eliazar from [employer]. Review of Systems Const Denies body aches, Denies chills, Denies fever(s), Denies headache(s) and Denies poor appetite Eyes Reports no additional complaints ENT Denies dysphagia, Denies dizziness, Denies headache(s) and Denies odynophagia Card Denies chest pain, Denies syncope, Denies edema, Denies irregular heart rhythm, Denies lightheadedness and Denies dyspnea Resp Denies cough and Denies dyspnea GI Denies abdominal pain, Denies constipation, Denies dysphagia, Denies diarrhea, Denies nausea, Denies odynophagia and Denies vomiting Reports no additional complaints Musc Reports no additional complaints and Denies abnormal gait Skin/Breast Reports system reviewed and no additional complaints, except as documented Neuro Denies abnormal gait, Denies dizziness, Denies syncope and Denies headache(s) Psych Reports no additional complaints Physical exam (Primary Care) Vital Signs: Last Vital Signs Pulse 59 09/13/24 09:30 Resp 18 09/13/24 09:30 BP 126/62 09/13/24 09:30 Pulse Ox 97 09/13/24 09:30 Oxygen Delivery Method Room Air 09/13/24 09:30 BMI result Body Mass Index 28.2 Tobacco/Smoking Status: Tobacco use Status Tobacco use date assessed 09/13/24 09/13/24 09:33 Patient Tobacco Use Status Never used Tobacco 09/13/24 09:33 Tobacco use type Cigarette 09/13/24 09:33 e-Cigarette/Vaping Use Never Used 09/13/24 09:33 PHQ-9: PHQ-9 Score PHQ-9: Total score 0 09/13/24 10:04 Depression Screening Interpretation: Negative Thrive Assessment: Date of Thrive Assessment Date Thrive assessed 09/13/24 09/13/24 09:33 Currently or been in a relationship where the following occur: No concerns reported Const General: cooperative, healthy appearing, comfortable and no acute distress Orientation/consciousness: patient oriented x3 HENMT Head: Yes normocephalic Ears: hearing grossly normal bilaterally General nose exam: Normal external nose present Eyes General: appearance normal, both eyes and all related structures Conjunctivae: conjunctivae normal Neck Neck: Yes full ROM and Yes no lymphadenopathy Resp Effort & Inspection: normal respiratory effort Auscultation: clear to auscultation bilaterally, no crackles, no rales, no rhonchi and no wheezes Cardio Rate: regular rate Rhythm: regular rhythm Skin General skin exam: no rashes or lesions noted Neuro General: patient oriented x3 Gait exam (Neuro): Normal gait present Extrem General: Yes normal to inspection, Yes full ROM and No edema Psych Affect: normal affect Attitude: cooperative Insight: Good insight present (Psych) Judgement: Good judgement present (Psych) Results Reviewed Results Reviewed: Laboratory Tests 09/05/24 09:00 WBC 7.1 RBC 4.60 Hgb 14.0 Hct 41.4 L MCV 90.0 MCH 30.4 MCHC 33.8 RDW 12.6 Plt Count 101 L D MPV 10.9 Immature Gran % (Auto) 0.6 H Neut % (Auto) 71.2 Sodium 140 Potassium 4.5 Chloride 110 H Carbon Dioxide 23 Anion Gap 12 BUN 18 H Creatinine 1.05 Estim Creat Clear Calc Not Reportable Estimated GFR > 60 Fasting Glucose 103 H Calcium 9.2 Total Bilirubin 1.1 H AST 20 ALT 17 Alkaline Phosphatase 75 Total Protein 7.4 Albumin 4.6 Triglycerides 95 Cholesterol 125 LDL Cholesterol, Calc 70 HDL Cholesterol 36 L 25-OH Vitamin D Total 44.6 TSH 1.28 Urine Color Yellow Urine Appearance Clear Urine pH 5.5 Ur Specific [place] 1.020 Urine Protein Negative Urine Glucose (UA) Negative Urine Ketones Negative Urine Blood Negative Urine Nitrite Negative Ur Leukocyte Esterase Negative Coding Level of Care Code Est Pt Level 3 (33944) Diagnoses Hypertension, unspecified type I10 Hypertension type: unspecified Coronary artery disease involving [place] coronary artery of [place] heart without angina pectoris I25.10 Coronary Disease-Associated Artery/Lesion type: [place] artery [place] vs. transplanted heart: [place] heart Associated angina: without angina Paroxysmal atrial fibrillation I48.0 Pure hypercholesterolemia E78.00 Hyperlipidemia type: pure hypercholesterolemia Overweight (BMI 25.0-29.9) E66.3 Time Spent (min) 33 Assessment & Plan Assessment & Plan (1) Hypertension: Code(s): I10 - Essential (primary) hypertension Category: Medical Qualifiers: Hypertension type: unspecified Qualified Code(s): I10 - Essential (primary) hypertension Plan: Blood pressure 126/62 within goal Reinforced low-sodium diet Continue diltiazem HCI CD 180 mg daily, metoprolol succinate ER 150 mg b.i.d. (2) Coronary artery disease: Code(s): I25.10 - Atherosclerotic heart disease of [place] coronary artery without angina pectoris Category: Medical Qualifiers: Coronary Disease-Associated Artery/Lesion type: [place] artery [place] vs. transplanted heart: [place] heart Associated angina: without angina Qualified Code(s): I25.10 - Atherosclerotic heart disease of [place] coronary artery without angina pectoris Plan: Status post CABG. No dyspnea or anginal pain with or without exertion. Continue Crestor 20 mg daily, metoprolol succinate ER 150 mg b.i.d. (3) Paroxysmal atrial fibrillation: Code(s): I48.0 - Paroxysmal atrial fibrillation Category: Medical Plan: Reports paroxysmal AFib during stressful situations. Reports the possibility of getting apixaban discontinued by Cardiology. On previous visit the patient came in for preop clearance, and it was noted that he has self stopped apixaban without coordinating with Cardiology. The medication was restarted and the patient was encouraged to follow up with Cardiology to be able to safely discontinue medication. Continue apixaban 5 mg b.i.d., Cardizem HCI CD 150 mg daily, metoprolol succinate ER 150 mg b.i.d.. Continue monitoring for any signs or symptoms of bleeding. (4) Hyperlipidemia: Code(s): E78.5 - Hyperlipidemia, unspecified Category: Medical Qualifiers: Hyperlipidemia type: pure hypercholesterolemia Qualified Code(s): E78.00 - Pure hypercholesterolemia, unspecified Plan: Triglycerides 95, total cholesterol 125, LDL 70, HDL 36 Discussed lifestyle modifications including dietary changes and physical activity Continue rosuvastatin 20 mg daily We will repeat lipid panel in 3 months (5) Overweight (BMI 25.0-29.9): Code(s): E66.3 - Overweight Category: Medical Plan: Discussed lifestyle modifications including dietary changes and physical activity Orders: Orders Hemoglobin A1c 3 Months I10 - Essential (primary) hypertension, I25.10 - Atherosclerotic heart disease of [place] coronary artery without angina pectoris, I48.0 - Paroxysmal atrial fibrillation, E78.00 - Pure hypercholesterolemia, unspecified, E66.9 - Obesity, unspecified UA CC w/rflx Micro + Cult 3 Months I10 - Essential (primary) hypertension, I25.10 - Atherosclerotic heart disease of [place] coronary artery without angina pectoris, I48.0 - Paroxysmal atrial fibrillation, E78.00 - Pure hypercholesterolemia, unspecified, E66.9 - Obesity, unspecified Lipid Panel 3 Months I10 - Essential (primary) hypertension, I25.10 - Atherosclerotic heart disease of [place] coronary artery without angina pectoris, I48.0 - Paroxysmal atrial fibrillation, E78.00 - Pure hypercholesterolemia, unspecified, E66.9 - Obesity, unspecified Comprehensive [place]. Panel Fast 3 Months I10 - Essential (primary) hypertension, I25.10 - Atherosclerotic heart disease of [place] coronary artery without angina pectoris, I48.0 - Paroxysmal atrial fibrillation, E78.00 - Pure hypercholesterolemia, unspecified, E66.9 - Obesity, unspecified Complete Blood Count Auto Diff 3 Months I10 - Essential (primary) hypertension, I25.10 - Atherosclerotic heart disease of [place] coronary artery without angina pectoris, I48.0 - Paroxysmal atrial fibrillation, E78.00 - Pure hypercholesterolemia, unspecified, E66.9 - Obesity, unspecified TSH reflex Free T4 3 Months I10 - Essential (primary) hypertension, I25.10 - Atherosclerotic heart disease of [place] coronary artery without angina pectoris, I48.0 - Paroxysmal atrial fibrillation, E78.00 - Pure hypercholesterolemia, unspecified, E66.9 - Obesity, unspecified
--- OUTSIDE RECORDS SUMMARY | 2024-09-13 09:54 | XMS_ITS | Clinical Summary ---
Author Organization [facility] Facility Address [address] [address] Care Team Providers Care Senior Quality Technician Name Role Phone Sammy Arambula MD Primary Care Provider [phone] Social History Tobacco Use Types Packs/Day Years [...] Medicaid [place] Care Teams Senior Quality Technician Relationship Specialty Start Date End Date Sammy Arambula MD [address] [place] [address] PCP - General Internal Medicine 12/29/22
--- OUTSIDE RECORDS SUMMARY | 2024-09-13 09:54 | XMS_ITS | Clinical Summary ---
Author Organization [facility] Address [address] [place] [id number] Care Team Providers Care Dairy Grazer Name Role Phone Sammy Arambula MD Primary [...] age to complete this topic Care Teams Dairy Grazer Relationship Specialty Start Date End Date Sammy Arambula MD [address] [place] [address] [place] [id number] PCP - General Internal Medicine 04/29/22
== END 2024-09-13 10:31 | disposition home or self-care (01) ==
LOC: HO.HMCH 09:29
DX: I10 Essential (primary) hypertension (principal); I25.10 Atherosclerotic heart disease of native coronary artery without angina pectoris; I48.0 Paroxysmal atrial fibrillation; E78.00 Pure hypercholesterolemia, unspecified; E66.3 Overweight

== ENCOUNTER → 2024-09-13 09:28 | Outpatient (BNVA) | payer MEDICARE, MEDICAID, SELFPAY | DX: I10 Essential (primary) hypertension (principal); I25.10 Atherosclerotic heart disease of native coronary artery without angina pectoris; I48.0 Paroxysmal atrial fibrillation; E78.00 Pure hypercholesterolemia, unspecified; E66.3 Overweight; Z68.28 Body mass index [BMI] 28.0-28.9, adult; Z71.3 Dietary counseling and surveillance | CPT/HCPCS: 99212 ==

== ENCOUNTER 2024-12-05 09:21 | Outpatient (REF) | payer MEDICARE, MEDICAID, SELFPAY ==
--- OUTSIDE RECORDS SUMMARY | 2023-11-20 10:35 | XMS_ITS | Encounter Summary ---
Author Organization [facility] [place] [address] Care Team Providers Care Gear Nicker Name Role Phone Sammy Arambula MD Primary Care Provider [phone] Encounter Details Date Type Department Care Team (Late st Contact Info) Description 11/20/2023 10:35 AM EDT Hospital Encounter TH HISTORIC ENCOUNTERS [facility] CONVERSION ONLY Demi Hilliard MD [address] [place] [address] Social History Tobacco Use Types Packs/Day Years Used Date Smoking Tobacco: Never Smokeless Tobacco: Never Alcohol Use Standard Drinks/Week Comments Never 0 (1 standard drink = 0.6 oz pur e alcohol) Sex and Gender Information Value Date Recorded Sex Assigned at Not on file Legal Sex Male 10:40 AM EST Gender Identity Not on file Sexual Orientation Not on file documented as of this encounter Last Filed Vital Signs Vital Sign Reading Time Taken Comments Blood Pressure 135/62 11/20/2023 10:47 AM EDT Sitting Left arm Pulse 71 11/20/2023 10:47 AM EDT Temperature - - Respiratory Rate - - Oxygen Saturation - - Inhaled Oxygen Concentration - - Weight 87.6 kg (193 lb 3.2 oz) 11/20/2023 10:47 AM EDT Height 175.3 cm (5' 9 ) 09/15/2022 10:3 7 AM EDT Body Mass Index 27.72 11/11/2023 3:58 PM EDT documented in this encounter Progress Notes * Demi Hilliard MD - 11/20/2023 10:30 AM EDT CHIEF COMPLAINT: Follow-up IDENTIFIER:Abdoul Dia is a 73 y.o. male. 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 Carrasquillo who think surgery would be little too much so he is arranging patient to have hepatic artery embolization ROS: No anorexia or weight loss No chest pain shortness of breath or cough No significant GI symptoms, denies any black stool blood in stool No significant abdominal pain No significant issues Denies any unusual aches and pain Denies any neurological symptom Oncology History Overview Note Patient noticed on and off fresh blood per rectum in early 2021 which was gradually getting worse, initially improved after discontinuing antiplatelet drug in summer of last year but restarted again even without antiplatelet drug earlier this year Because of fresh blood per rectum patient was referred to Dr. 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 Patient underwent CT scan of abdomen pelvis on 313, that showed at least 9 cm segment of concentriccolonic wall thickening at the rectosigmoid junction, there is 4x1.5 centimeter ill-defined processwithin the left perirectal region which may represent phlegmon but there were few hypoattenuating foci in the liver most likely representing of multiple liver cyst Patient saw Dr. Stevens on 04/29/2022, because of the location of the tumor we recommended to consider neoadjuvant concurrent chemoradiation and patient saw me on 05/02/2022, I did order PET CT scan and check CEA as well as referred patient to radiation oncologist Patient PET CT scan showed no evidence of distant disease, tumor marker was also normal but unfortunately patient had some evidence of perforation in the tumor with Dr. Stevens the diverting colostomy in early May [address] Dey who agree with concurrent chemoradiation and patient started on concurrent chemoradiation on 06/04/2022 (oral capecitabine) Patient finishing concurrent chemoradiation on 07/09/[address] scan on 09/04/2022, that showed decreased FDG activity in the pelvic mass there is no evidence of distant metastatic disease Patient underwent anterior resection with diverting colostomy of the tumor on December 17, 2022 and found to have some residual disease [id number], patient postoperatively have significant complication and remained in hospital for few months, patient have reversal of surgery in May 2023 PAST MEDICAL HISTORY: Hypertension Dyslipidemia Coronary artery disease Rectosigmoid carcinoma ? 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 FAMILY HISTORY: Noncontributory ?? Current Outpatient Medications: ??? apixaban (ELIQUIS) 5 MG TABS tablet, Take by mouth every 12 (twelve) hours., Disp: , Rfl: ??? Crestor 20 MG tablet, Take 1 tablet (20 mg total) by mouth daily., Disp: , Rfl: ??? dilTIAZem (CARDIZEM CD) 180 MG 24 hr capsule, Take 1 capsule (180 mg total) by mouth daily., Disp: , Rfl: ??? metoprolol tartrate (LOPRESSOR) 50 MG tablet, Take by mouth 2 (two) times a day., Disp: , Rfl: You are allergic to the following Date Reviewed: 11/20/2023 Allergen Reactions Atorvastatin Not Noted Erythromycin Not Noted Tylenol (Acetaminophen) Not Noted PHYSICAL EXAM: BP 135/62 (BP Location: Left arm) Pulse 71 Temp 98.1 ??F (36.7 ??C) (Temporal) Wt 87.6 kg (193 lb 3.2 oz) SpO2 98% BMI 28.53 kg/m?? ECOG 0 APPEARANCE: Alert and oriented in no acute distress EYES: nonicteric sclera pink conjunctiva ORAL CAVITY: No erythema or exudates NECK: Neck supple, no significant adenopathy, HEART: normal S1 and S2 LUNG: clear to auscultation bilaterally LYMPH NODES: No palpable superficial adenopathy ABDOMEN: soft, nontender and no organomegaly appreciated EXTREMITIES: No edema erythema tenderness IMPRESSION: SNOMED CT(R) 1. 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 Patient on surveillance found to have oligometastatic liver disease/PET positive. Patient has seen Dr. Carrasquillo who is arranging to have hepatic artery embolization, per Dr. Carrasquillo surgery is little too much for this lesion. Since PET scan also showed some activity at the primary site, which could be due to inflammation treatment effect or recurrence of malignancy, patient have no blood per rectum and no symptom we will continue to watch PLAN: Patient will be going for hepatic artery embolization by interventional radiologist in next few weeks I will check labs including CEA, I told patient if he see any blood per rectum he should contact habilitation worker for repeat colonoscopy I will check CT scan of abdomen pelvis prior to next visit after holidays Demi Hilliard MD documented in this encounter Plan of Treatment Upcoming Encounters Date Type Department Care Team (Late st Contact Info) Description 12/13/2024 4:00 PM EST Appointment [facility] Endoscopy [address] [place] [address] Anthony Clark MD [address] [facility] [address] [place] [address] 04/04/2025 2:00 PM EST Office Visit General Surgery - [place] [address] [facility] [address] [place] [address] Leon Stevens MD [address] [place] [id number] 04/17/2025 3:00 PM EDT Office Visit [facility] Hematology Oncology [address] [place] [address] Demi Hilliard MD [address] [place] [address] documented as of this encounter Visit Diagnoses Not on filedocumented in this encounter Care Teams Gear Nicker Relationship Specialty Start Date End Date Sammy Arambula MD [address] [place] [address] [address] [place] [id number] PCP - General 06/02/12 documented as of this encounter
--- OUTSIDE RECORDS SUMMARY | 2023-12-08 10:09 | XMS_ITS | Encounter Summary ---
Author Organization [facility] Address [address] [place] [address] Care Team Providers Care International Trade Teacher Name Role Phone Sammy Arambula MD Primary Care Provider [phone] Encounter Details Date Type Department Care Team (Latest Contact Info) Description 12/08/2023 10:09 AM EDT Hospital Encounter TH HISTORIC ENCOUNTERS EASTERN CONVERSION ONLY Barry Morris MD [address] [place] [address] Fatty (change of) liver, not elsewhere classified [...] Info) Description 12/13/2024 4:00 PM EST Appointment [facility] Endoscopy [address] [place] [address] Anthony Clark MD 175 [facility] [address] [place], [place] [phone] 04/04/2025 2:00 PM EST Office Visit General Surgery - [place] 175 [facility] [address] [place] [address] Leon Stevens MD [address] [place] [phone] 04/17/2025 3:00 PM EDT Office Visit [facility] Hematology Oncology [address] [place] [phone] Demi Hilliard MD [address] [place] [phone] documented as of this encounter Procedures Procedure Name Priority Date/Time Associated Diagnosis Comments ABLATION LIVER TUMORS PERC Routine 12/10/2023 5:37 PM EDT Fatty (change of) liver, not elsewhere classified documented in this encounter Results * ABLATION LIVER TUMORS PERC (12/10/2023 5:37 PM EDT) Anatomical Region Laterality Modality Interventional R adiology 12/08/2023 10:3 6 AM EDT Narrative 12/10/2023 5:37 PM EDT [facility] Diagnostic Imaging Department [address] [place] [address] Patient: ABDOUL ESPARZA./Age/Sex: 1950 - 73 - M Unit#: [id number] Location/Status: [facility]/REG CLI Mnemonic/Ordering Site: [place] [address]/[facility] Ordering Physician: BRENDAN SWANN MD Ablation Liver Tumors [facility] - 12/08/23 - 1446 Report Status:Signed History: [...] pleural/lung injury. Under progressive CT guidance, a Hytle Microwave Ablation Needle measuring 15 cm was [...] Dic Date/Time: 12/08/23 1525 Sign date/Time: 12/10/23 0659 Procedure Note Brendan Swann MD - 12/12/2023 [facility] Diagnostic Imaging Department [address] [place], [place] [phone] Patient: ABDOUL ESPARZA /Age/Sex: 1950 - 73 - M Unit#: [id number] Location/Status: [facility] Mnemonic/Ordering Site: [place] [address] Ordering Physician: BRENDAN SWANN MD Ablation Liver Tumors Perc - 12/08/23 - 0946 Report Status:Signed History: Patient with metastatic colorectal [...] pleural/lung injury. Under progressive CT guidance, a SMXt Microwave AblationNeedle measuring 15 cm was advanced [...] Dic Date/Time: 12/08/23 1525 Sign date/Time: 12/10/23 1737 Brendan Swann MD IMG IR PROCEDURES Final Re sult documented in this encounter Visit Diagnoses Diagnosis Fatty (change of) liver, not elsewhere classified documented in this encounter Care Teams International Trade Teacher Relationship Specialty Start Date End Date Sammy Arambula MD [address] [place] [address] Drive [address] [place] [address] PCP - General 06/02/12 documented as of this encounter
--- OUTSIDE RECORDS SUMMARY | 2024-12-05 10:21 | XMS_ITS | Encounter Summary ---
Author Organization [facility] Address [address] [place] [address] Care Team Providers Care Retail Analyst Name Role Phone Sammy Arambula MD Primary Care Provider [phone] Encounter Details Date Type Department Care Team Description 05/09/2022 Social Work [facility] [address] [place] [address] Mariaelena Corbin, [facility] Social History Tobacco Use Types Packs/Day Years [...] on filedocumented in this encounter Care Teams Retail Analyst Relationship Specialty Start Date End Date Sammy Arambula MD [address] [place] [address] Dr GiordanoyoDEVAN quintero [id number] PCP - General Internal Medicine 04/29/22 documented as of this encounter
--- OUTSIDE RECORDS SUMMARY | 2024-12-05 10:21 | XMS_ITS | Clinical Summary ---
Author Organization [facility] [employer] Address [address] [place] [address] Phone Care Team Providers Care Timber Sizer Name Role Phone Sammy Arambula MD Primary Care Provider [phone] Allergies Active Allergy Reactions Criticality Noted Date [...] CAPSULE BY MOUTH DAILY 90 capsule 1 5 Active polyethylene glycol (Golytely) 236-22.74-6.74 -5.86 gram solution Take 4L by mouth once for one dose. May substitue any PEG. Starting at 2PM the day before your procedure drink 1 8oz glasses at your own pace until you complete half of the gallon. Finish 2nd half of the gallon at 8PM. 4000 mL 5 Active bisacodyL (DULCOLAX) 5 mg EC tablet Take 2 tablets by mouth right before beginning bowel prep. See instructions provided by the office 2 tablet 5 Active Active Problems Problem Noted Date Diagnosed Date Rectal cancer metastasized t o liver (CMS/HCC V24, CMS/HCC V28) 12/29/2023 Cancer Staging:Clinical stage from 12/17/2022:Stage IIA(ycT3, cN0, cM0) - Signed by Demi Hilliard MD on 09/14/2024 Large intestine anastomotic leak 01/20/2023 Paroxysmal atrial fibrillation ([facility] V24, [facility] V28) 05/27/2022 Assessment & Plan (12/15/2023 3:10 [...] hypertension 08/27/2021 Atherosclerotic heart diseas e of [place] coronary artery without angina pectoris 08/23/2021 HLD (hyperlipidemia) 08/23/2021 Encounters Date Type Department Care Team Description 12/02/2024 Telephone Gastroenterology - [address] [facility] [address] [facility] [address] [place] [address] Michaela Plata MA 11/01/2024 1:30 PM EDT Office Visit General Surgery - [place] [address] [facility] [address] [place] [phone] Leon Stevens MD Rectal cancer metastasized to liver (CMS/HCC V24, CMS/HCC V28) (Primary Dx) 10/13/2024 Telephone [facility] [address] [place] [address] Chan Rizo MD 09/14/2024 10:30 AM EDT Office Visit [facility] Hematology Oncology [address] [place] [phone] Demi Hilliard MD Rectal cancer metastasized to liver (CMS/HCC V24, CMS/HCC V28) (Primary Dx); Chronic idiopathic thrombocytopenia (CMS/HCC V24, CMS/HCC V28) from Last 3 Months Surgical History Surgery [...] Sign Reading Time Taken Comments Blood Pressure 122/71 11/01/2024 1:33 PM EDT Pulse 67 11/01/2024 1:33 PM EDT Temperature 36.5 C (97.7 F) 09/14/2024 10:34 AM EDT Respiratory Rate - - Oxygen Saturation 98% 09/14/2024 10:34 AM EDT Inhaled Oxygen Concentration - - Weight 84.8 kg (187 lb) 11/01/2024 1:33 PM EDT Height 177.8 cm (5' 10 ) 11/01/2024 1:33 PM EDT Body Mass Index 26.83 11/01/2024 1:33 PM EDT Plan of Treatment Upcoming Encounters Date Type Department Care Team (Late st Contact Info) Description 12/13/2024 4:00 PM EST Appointment [facility] Endoscopy [address] [place] [phone] Anthony Clark MD [address] [facility] [address] [place] [address] 04/04/2025 2:00 PM EST Office Visit General Surgery - [place] [address] [facility] [address] [place] [phone] Leon Stevens MD [address] [place] [phone] 04/17/2025 3:00 PM EDT Office Visit [facility] Hematology Oncology [address] [place] [phone] Demi Hilliard MD [address] [place] [address] Health Maintenance Due Date Last Done Comments COVID-19 Vaccine (#1) 1954 DTaP,Tdap,and Td Vaccines (1 - Tdap) 1968 Pneumococcal Vaccine: 50+ Years (1 of 2 - PCV) 1968 Zoster Vaccines (1 of 2) 1969 Cholesterol Screening (Lipid Panel) 01/19/2022 Falls Risk Assessment 01/19/2022 Hepatitis C Screening 01/19/2022 Medicare Annual Wellness Visit 01/19/2022 Social Influencers of Health Screening 01/19/2022 Depression Screening 02/10/2024 RSV Immunization Adult Patients (1 - 1-dose 75+ series) 2024 Influenza Vaccine (#1) 2024 Hypertension/CHF/CAD Annual BMP Blood Test 08/29/2025 08/29/2024, 02/15/2024, 02/12/2023 Colorectal Cancer Screening: Colonoscopy 04/11/2032 04/11/2022 HIB Vaccines Aged Out No longer eligi ble based on patient's age to complete this topic HPV Vaccines Aged Out No longer eligi ble based on patient's age to complete this topic Hepatitis A Vaccines Aged Out No long er eligible based on patient's age to complete this topic Hepatitis B Vaccines Aged Out No long [...] on patient's age to complete this topic Goals Goal Patient Goal Type Associated Problems Recent Progress Patient-Stated? Author Autogenerat ed Goal Care Plan Autogenerated Problem No Nasrin Navarro Procedures Procedure Name Priority Date/Time Associated Diagnosis Comments COMPREHENSIVE METABOLIC PANEL Routine 08/29/2024 10:07 AM EDT Rectal cancer metastasized to liver (CMS/HCC V24, CMS/HCC V28) COLONOSCOPY Routine 04/11/2022 from Last 3 Months or Most Recently Relevant to Health Maintenance Results * (ABNORMAL) Comprehensive metabolic panel (08/29/2024 10:07 AM EDT) Sodium 140 133 - 145 mmol/L LAB CHEMISTRY METHOD 08/29/2024 12:49 PM EDT [facility] Potassium 4.1 3.5 - 5.5 mmol/L LAB CHEMISTRY METHOD 08/29/2024 12:49 PM T [facility] Chloride 109 96 - 110 mmol/L LAB CHEMISTRY METHOD 08/29/2024 12:49 PM [facility] CO2 23 21 - 32 mmol/L LAB CHEMISTRY METHOD 08/29/2024 12:49 PM [facility] Anion Gap 8 3 - 11 LAB CHEMISTRY METHOD 08/29/2024 12:49 PM [facility] Glucose 125(H) 70 - 100 mg/dL LAB CHEMISTRY METHOD 08/29/2024 12:49 PM [facility] BUN 11 5 - 25 mg/dL LAB CHEMISTRY METHOD 08/29/2024 12:49 PM [facility] Creatinine 1.16 0.70 - 1.30 mg/dL LAB CHEMISTRY METHOD 08/29/2024 12:49 PM [facility] eGFR 66 >=60 mL/min/1. 73m2 LAB CHEMISTRY METHOD 08/29/2024 12:49 PM [facility] Comment:Calculation based on the Chronic Kidney Disease Epidemiology Collaboration (CKD-EPI) equation refit without adjustment for race. BUN/Creatinine Ratio 9.5 LAB CHEMISTRY METHOD 08/29/2024 12:49 PM [facility] Calcium 9.1 8.5 - 10.5 mg/dL LAB CHEMISTRY METHOD 08/29/2024 12:49 PM [facility] AST (SGOT) 14 10 - 42 unit/L LAB CHEMISTRY METHOD 08/29/2024 12:49 PM [facility] ALT (SGPT) 17 10 - 60 unit/L LAB CHEMISTRY METHOD 08/29/2024 12:49 PM [facility] Alkaline Phosphatase 89 42 - 121 unit/L LAB CHEMISTRY METHOD 08/29/2024 12:49 PM [facility] Total Protein 7.3 6.0 - 8.0 g/dL LAB CHEMISTRY METHOD 08/29/2024 12:49 PM [facility] Albumin 3.9 3.2 - 5.0 g/dL LAB CHEMISTRY METHOD 08/29/2024 12:49 PM [facility] Total Bilirubin 0.9 0.0 - 1.4 mg/dL LAB CHEMISTRY METHOD 08/29/2024 12:49 PM EDT [facility] Blood Venous blood specimen / Unknown Venipuncture / Unknown 08/29/2024 10:07 AM EDT 08/29/2024 10:36 AM EDT Demi Hilliard MD LAB BLOOD ORDERABLES Final R esult [facility] [address] [place] [address], [place] [phone] * Colonoscopy (04/11/2022) Colonoscopy No interpretation , Abstracted Anatomical Region Laterality Modality Other Historical Provider HEALTH MAINTENANCE Final Result from Last 3 Months or Most Recently Relevant to Health Maintenance Additional Health Concerns Active Problems Noted Date Diagnosed Date Autogenerated Problem 11/14/2024 Insurance MEDICARE [place]ICAID - [place] Care Teams Timber Sizer Relationship Specialty Start Date End Date Sammy Arambula MD [address] [place] [address] PCP - General 06/02/12
--- OUTSIDE RECORDS SUMMARY | 2024-12-05 10:21 | XMS_ITS | Encounter Summary ---
Author Organization [facility] Address [address] [place] [address] Care Team Providers Care Electric Container Tester Name Role Phone Sammy Arambula MD Primary Care Provider [phone] Reason for Visit * Reason Onset Date Comments Anticoagulation 12/02/2024 Colonoscopy 12/13 Dr. Clark Encounter Details Date Type Department Care Team (Late st Contact Info) Description 12/02/2024 Telephone Gastroenterology - [address] [place] [phone] Michaela Plaat MA Social History Tobacco Use Types Packs/Day Years [...] as of this encounter Progress Notes * Den Lau NP - 12/02/2024 10:58 AM EDT Yes he may hold 2 days before the procedure * Natalie Iyer RN - 12/02/2024 10:01 AM EDT Abdoul Dia is a 74 y.o. male, followed by Dr. Rizo/ CHARLIE MONTSERRAT Lau with cardiac history of coronary artery disease s/p coronary bypass grafting in 2014, paroxysmal atrial fibrillation, systemic HTN, and HLD. He takes Eliquis 5 mg BID. May he hold Eliquis for two days before 12/13/24 colonoscopy? * Michaela Plata MA - 12/02/2024 10:00 AM EDT Patient is scheduled with Dr. Clark for colonoscopy on 12/13/24. Please advise if ok to have patienthold his Eliquis x 2 days prior to procedure. documented in this encounter Plan of Treatment Upcoming Encounters Date Type Department Care Team (Late st Contact Info) Description 12/13/2024 4:00 PM EST Appointment [facility] Endoscopy [address] [place] [phone] Anthony Clark MD [address] [facility] [address] [place] [address] 04/04/2025 2:00 PM EST Office Visit General Surgery - [place] [address] [facility] [address] [place] [phone] Leon Stevens MD [address] [place] [phone] 04/17/2025 3:00 PM EDT Office Visit [facility] Hematology Oncology [address] [place] [phone] Demi Hilliard MD [address] [place] [address] documented as of this encounter Goals Goal Patient Goal Type Associated Problems Recent Progress Patient-Stated? Author Autogenerat ed Goal Care Plan Autogenerated Problem No Nasrin Navarro documented as of this encounter Visit Diagnoses Not on filedocumented in this encounter Additional Health Concerns Active Problems Noted Date Diagnosed Date Autogenerated Problem 11/14/2024 documented as of this encounter Care Teams Electric Container Tester Relationship Specialty Start Date End Date Sammy Arambula MD [address] [place] [address] PCP - General 06/02/12 documented as of this encounter
--- OUTSIDE RECORDS SUMMARY | 2024-12-05 10:21 | XMS_ITS | Clinical Summary ---
Author Organization [facility] Address [address] [place] [address] Care Team Providers Care Municipal Firefighter Name Role Phone Sammy Arambula MD Primary Care Provider [phone] Allergies Active Allergy Reactions Criticality Noted Date [...] Hepatitis C Screening 1950 COVID-19 Vaccine (#1) 01/10/1950 Depression Screening 1961 Preventative Health Evaluation 07/12/1967 DTap / Tdap / Td (1 - Tdap) 1968 Colon Cancer Screening (Colonoscopy) 1994 Shingrix-Zoster Vaccine (1 of 2) 07/12/1999 Fall Risk Assessment 2014 Pneumococcal Vaccine (1 of 1 - PCV) 2014 RSV Adult > 60+ Yrs or Pregn ant (1 - 1-dose 75+ series) 2024 Influenza Vaccine (#1) 2024 Hepatitis B Vaccines Aged Out No long er eligible based on patient's age to complete this topic RSV Ped < 20 months Aged Out No longe r eligible based on patient's age to complete this topic Care Teams Municipal Firefighter Relationship Specialty Start Date End Date Sammy Arambula MD [address] [place] [address] [place] [address] PCP - General Internal Medicine 04/29/22
--- OUTSIDE RECORDS SUMMARY | 2024-12-05 10:21 | XMS_ITS | Encounter Summary ---
Author Organization [facility] Address [address] [place] [address] Care Team Providers Care Potato Seed Cutter Name Role Phone Sammy Arambula MD Primary Care Provider [phone] Encounter Details Date Type Department Care Team Description 05/30/2022 Social Work [facility] Oncology Services [address] [place] [address] Mariaelena Corbin, [facility] [...] on filedocumented in this encounter Care Teams Potato Seed Cutter Relationship Specialty Start Date End Date Sammy Arambula MD [address] [place] [address] Dr GiordanoyoDEVAN quintero [id number] PCP - General Internal Medicine 04/29/22 documented as of this encounter
[2024-12-05 10:38] LABS: MANUAL DIFF FLAG NO
[2024-12-05 10:49] LABS: Hematocrit 46.7 % (42.0-52.0); Hemoglobin 15.1 g/dl (14.0-18.0); Imm Gran Abs Auto 0.03 X10*3/uL (0.00-0.03); Imm Gran Pct Auto 0.4 % (0.0-0.4); Lymphocytes Absolute Auto 1.4 X10*3/uL (1.2-4.9); Mean Corpuscular HGB Conc 32.3 g/dl (31.0-36.0); Mean Corpuscular Hemoglobin 29.5 pg (27.0-33.0); Mean Corpuscular Volume 91.2 fL (80.0-98.0); NRBC Abs Auto 0.000 X10*3/uL (0.0-0.012); NRBC Pct Auto 0.0 /100WBC (0.0-0.2); Platelet Count 82 X10*3/uL (160-400); Red Blood Count 5.12 X10*6/uL (4.60-5.80); White Blood Count 7.1 X10*3/uL (4.8-10.8)
[2024-12-05 10:52] LABS: Appearance Urine Clear; Glucose Urine UA Negative (Negative); PH 5.5 (5.0-9.0); Specific Gravity - Urine 1.020 (1.005-1.025)
[2024-12-05 11:26] LABS: Alanine Aminotransferase 16 U/L (0-40); Albumin Level 4.6 g/dL (3.5-5.0); Alkaline Phosphatase 75 U/L (39-117); Anion Gap 12 (12-20); Aspartate Amino Transferase 20 U/L (5-37); Blood Urea Nitrogen 16 mg/dL (9-16); Calcium 9.1 mg/dL (8.4-10.2); Carbon Dioxide 24 mmol/L (22-29); Chloride 109 mmol/L (96-108); Cholesterol 150 mg/dL (<200); Estimated Glomerular Filt Rate > 60; HDL Cholesterol 38 mg/dL (>40); Potassium 4.2 mmol/L (3.3-5.1); Sodium 141 mmol/L (135-145); Total Protein 7.4 g/dL (6.5-8.0); Triglycerides 147 mg/dL (<150)
== END 2024-12-05 09:22 | disposition home or self-care (01) ==
LOC: HO.10HDL 09:21
DX: I10 Essential (primary) hypertension (principal); I25.10 Atherosclerotic heart disease of native coronary artery without angina pectoris; I48.0 Paroxysmal atrial fibrillation; E78.00 Pure hypercholesterolemia, unspecified; E66.9 Obesity, unspecified; Z13.1 Encounter for screening for diabetes mellitus
CPT/HCPCS: 36415; 80053; 80061; 81003; 83036; 84443; 85025

== ENCOUNTER 2024-12-14 09:59 | Outpatient (AMB) | payer MEDICARE, MEDICAID, SELFPAY ==
[2024-12-14 10:05] VITALS: BP 130/68; PULSE 67; TEMP 36.3; O2SAT 96; BMI 28.5
--- NOTE | 2024-12-14 10:05 | MHC.PC.OV ---
Vital Signs 12/14/24 10:05 Height 5 ft 8 in Weight 187 lb 6 oz BMI 28.5 BP 130/68 Blood Pressure Location Lt brachial Position Sitting Pulse 67 Pulse Source Pulse Oximeter Temp 97.3 F Temp Source Temporal Artery Scan Pulse Oximetry (%) 96 Oxygen Delivery Method Room Air Intake Visit Reasons: htn/hld/afib Supervisor Metal Furniture Fabrication Required: Yes Supervisor Metal Furniture Fabrication Name: Daughter Information Interpreted: clinical only Biological Technical Officer: Present Accompanied by: daughter and Allergies atorvastatin (Lipitor) Allergy (Unknown, Verified 12/14/24 10:34) nausea and vomiting acetaminophen (From Tylenol) Allergy (Verified 12/14/24 10:34) Unknown Erythromycin Allergy (Unknown, Uncoded 12/14/24 10:34) Unknown Medication List - Last Reconciled 12/14/24 by ESTEFANI Montanez apixaban 5 mg PO BID blood pressure monitor (Blood Pressure Kit) As directed Crestor (rosuvastatin) 20 mg PO DAILY 90 days NS diltiazem HCl CD 180 mg PO DAILY metoprolol succinate ER 150 mg (1.5 x 100 mg) PO BID Tobacco use date assessed: 12/14/24 Fall risk assessment: No Falls in past year Last assessed Fall Risk: 12/14/24 Dental Screening Dental Screen Date: 12/14/24 Did you have a dental visit in the last 12 months?: Yes Did you have a dental problem in the last 6 months where you did not have access to dental care?: No Was dental information given to patient?: Patient has dentist HPI htn/hld/afib HPI Details The patient is a 74-year-old male presenting for HTN, HLD, AFib, CAD follow up Recent labs reviewed HTN-blood pressure 130/68. Reports medications (diltiazem 180 mg daily, metoprolol succinate ER 150 mg b.i.d.) compliance HLD-urged the patient that even though his cholesterols are within decent ranges. They has been increasing, so dietary modifications recommended. Triglycerides 147, total cholesterol 150, LDL 83, HDL 38 IFG-Fasting glucose 114 and A1c 5.9%. Reinforced low sugar/carbohydrate diet. We will continue to monitor AFib-few episodes of AFib. He is currently on apixaban 5 mg b.i.d.. Plans for holter monitor to determine if he could stop the Eliquis. CAD-Status post CABG. No dyspnea or anginal pain with or without exertion. Continue Crestor 20 mg daily, metoprolol succinate ER 150 mg b.i.d. Rectal cancer metastasis to liver. Diagnosed with colorectal cancer early in 2021. Patient had chemoradiation followed by surgery but unfortunately have some postoperative complication and unfortunately had residual disease. The patient did have adjuvant chemotherapy for multiple reasons, mainly postoperative prolonged complicated course. Oligometastatic liver lesion ablated by Dr. Mccullough, patient has been under surveillance and underwent CT scan recently with no evidence of recurrence. Chronic idiopathic thrombocytopenia. The patient has mild chronic thrombocytopenia with no significant bleeding bruising etc.. He is currently on apixaban 5 mg b.i.d., per Hematology if the patient shows signs of bruising bleeding etc he could be switched to the prophylactic dose which is 2.5 mg of apixaban b.i.d.. Denies chest pain, shortness of breath, heart palpitation or dizziness Denies abdominal pain or change in bowel habits Denies urinary symptoms [facility] Medical History (Updated 12/18/24 @ 17:01 by ESTEFANI Montanez) Rectal cancer metastasized to liver Chronic idiopathic thrombocytopenia Paroxysmal atrial fibrillation Coronary artery disease Hypertension Colon cancer Obesity Hyperlipidemia Surgical History History of creation of ostomy Hx of CABG Family History Father No problems noted. Mother No problems noted. Social History Housing: House Alcohol intake: never Patient Tobacco Use Status: Never used Tobacco Tobacco use type: Cigarette e-Cigarette/Vaping Use: Never Used Second Hand Smoke Exposure: No service: No Current occupational status: retired Cognitive needs: No Hearing needs: Yes Vision needs: No Questionnaire PHQ-9 Over the last 2 weeks, how often have you been bothered by any of the following problems? 1. Little interest or pleasure in doing things: not at all 2. Feeling down, depressed, or hopeless: not at all 3. Trouble falling or staying asleep, or sleeping too much: not at all 4. Feeling tired or having little energy: not at all 5. Poor appetite or overeating: not at all 6. Feeling bad about yourself - or that you are a failure or have let yourself or your family down: not at all 7. Trouble concentrating on things, such as reading the newspaper or watching television: not at all 8. Moving or speaking so slowly that other people could have noticed. Or the opposite - being so fidgety or restless that you have been moving around a lot more than usual: not at all 9. Thoughts that you would be better off or of hurting yourself in some way: not at all Total score: 0 Depression Screening Interpretation: Negative Depression Screening Done: Yes Source: Developed by Drs. Silvestre Montesinos, Kaitlin Zhu, Brad Retana and colleagues, with an educational eliazar from [employer]. Thrive Questionnaire Date Thrive assessed: 06/10/24 I am a: Patient What is your living situation today?: I have a steady place to live Within the past 12 months, did the food you bought not last and you didn't have the money to get more?: Never true Within the past 12 months, did you worry whether your food would run out before you got money to buy more?: Never true Do you have trouble paying for medicines?: No Do you have trouble getting transportation to medical appointments?: No Do you have trouble paying your heating and electricity bill?: No Do you have trouble taking care of your child, family member or friend?: No Do you have trouble with day-to-day activities such as bathing, preparing meals, shopping, managing finances, etc.?: No Are you currently unemployed and looking for a job?: Yes Are you interested in more education?: No Please select the resources that you would like help with: None Currently or been in a relationship where the following occur: No concerns reported THRIVE Score: 0 AUDIT C Alcohol Use Questionnaire (AUDIT-C) 1. How often do you have a drink containing alcohol?: Never 3. How often do you have six or more drinks on one occasion?: Never Total Score: 0 Score Reviewed/Action Taken: No SOLANGE-7 AMB Questionnaire SOLANGE-7 Date SOLANGE - 7 assessed: 09/13/24 Feeling nervous, anxious, or on edge: 0 = Not at all Not being able to stop or control worryin = Not at all Worrying too much about different things: 0 = Not at all Trouble relaxin = Not at all Being so restless that it is hard to sit still: 0 = Not at all Becoming easily annoyed or irritable: 0 = Not at all Feeling afraid as if something awful might happen: 0 = Not at all Total SOLANGE-7 score (0-4 normal; 5-9 mild; 10-14 moderate; 15-21 severe): 0 Source: Developed by Drs. Silvestre Montesinos, Kaitlin Zhu, Brad Retana and colleagues, with an educational eliazar from [employer]. Review of Systems Const Denies body aches, Denies chills, Denies fever(s), Denies headache(s) and Denies poor appetite Eyes Reports no additional complaints ENT Denies dysphagia, Denies dizziness, Denies headache(s) and Denies odynophagia Card Denies chest pain, Denies syncope, Denies edema, Denies irregular heart rhythm, Denies lightheadedness and Denies dyspnea Resp Denies cough and Denies dyspnea GI Denies abdominal pain, Denies constipation, Denies dysphagia, Denies diarrhea, Denies nausea, Denies odynophagia and Denies vomiting Reports no additional complaints Musc Reports no additional complaints and Denies abnormal gait Skin/Breast Reports system reviewed and no additional complaints, except as documented Neuro Denies abnormal gait, Denies dizziness, Denies syncope and Denies headache(s) Psych Reports no additional complaints Physical exam (Primary Care) Vital Signs: Last Vital Signs Temp 97.3 F 12/14/24 10:05 Pulse 67 12/14/24 10:05 BP 130/68 12/14/24 10:05 Pulse Ox 96 12/14/24 10:05 Oxygen Delivery Method Room Air 12/14/24 10:05 BMI result Body Mass Index 28.5 Tobacco/Smoking Status: Tobacco use Status Tobacco use date assessed 12/14/24 12/14/24 10:16 Patient Tobacco Use Status Never used Tobacco 12/14/24 10:06 Tobacco use type Cigarette 12/14/24 10:06 e-Cigarette/Vaping Use Never Used 12/14/24 10:06 PHQ-9: PHQ-9 Score PHQ-9: Total score 0 12/14/24 10:48 Depression Screening Interpretation: Negative Thrive Assessment: Date of Thrive Assessment Date Thrive assessed 06/10/24 12/14/24 10:06 Currently or been in a relationship where the following occur: No concerns reported Const General: cooperative, healthy appearing, comfortable and no acute distress Orientation/consciousness: patient oriented x3 HENMT Head: Yes normocephalic Ears: hearing grossly normal bilaterally General nose exam: Normal external nose present Eyes General: appearance normal, both eyes and all related structures Conjunctivae: conjunctivae normal Neck Neck: Yes full ROM and Yes no lymphadenopathy Resp Effort & Inspection: normal respiratory effort Auscultation: clear to auscultation bilaterally, no crackles, no rales, no rhonchi and no wheezes Cardio Rate: regular rate Rhythm: regular rhythm Skin General skin exam: no rashes or lesions noted Neuro General: patient oriented x3 Gait exam (Neuro): Normal gait present Extrem General: Yes normal to inspection, Yes full ROM and No edema Psych Affect: normal affect Attitude: cooperative Insight: Good insight present (Psych) Judgement: Good judgement present (Psych) Results Reviewed Results Reviewed: Laboratory Tests 12/05/24 09:30 WBC 7.1 RBC 5.12 Hgb 15.1 Hct 46.7 MCV 91.2 MCH 29.5 MCHC 32.3 RDW 12.6 Plt Count 82 L Sodium 141 Potassium 4.2 Chloride 109 H Carbon Dioxide 24 Anion Gap 12 BUN 16 Creatinine 0.96 Estimated GFR > 60 Fasting Glucose 114 H Estimat Average Glucose 123 Hemoglobin A1c % 5.9 Calcium 9.1 Total Bilirubin 0.9 AST 20 ALT 16 Alkaline Phosphatase 75 Total Protein 7.4 Albumin 4.6 Triglycerides 147 Cholesterol 150 LDL Cholesterol, Calc 83 HDL Cholesterol 38 L TSH 0.95 Urine Color Yellow Urine Appearance Clear Urine pH 5.5 Ur Specific [place] 1.020 Urine Protein Negative Urine Glucose (UA) Negative Urine Ketones Negative Urine Blood Negative Urine Nitrite Negative Ur Leukocyte Esterase Negative Coding Level of Care Code Est Pt Level 4 (04618) Diagnoses Hypertension, unspecified type I10 Hypertension type: unspecified Coronary artery disease involving [place] coronary artery of [place] heart without angina pectoris I25.10 Coronary Disease-Associated Artery/Lesion type: [place] artery [place] vs. transplanted heart: [place] heart Associated angina: without angina Paroxysmal atrial fibrillation I48.0 Pure hypercholesterolemia E78.00 Hyperlipidemia type: pure hypercholesterolemia Overweight (BMI 25.0-29.9) E66.3 Impaired fasting glucose R73.01 Chronic idiopathic thrombocytopenia D69.3 Rectal cancer metastasized to liver C20; C78.7 Time Spent (min) 37 Assessment & Plan Assessment & Plan (1) Hypertension: Code(s): I10 - Essential (primary) hypertension Category: Medical Qualifiers: Hypertension type: unspecified Qualified Code(s): I10 - Essential (primary) hypertension Plan: Blood pressure 130/68 within goal Reinforced low-sodium diet Continue diltiazem HCI CD 180 mg daily, metoprolol succinate ER 150 mg b.i.d. (2) Coronary artery disease: Code(s): I25.10 - Atherosclerotic heart disease of [place] coronary artery without angina pectoris Category: Medical Qualifiers: Coronary Disease-Associated Artery/Lesion type: [place] artery [place] vs. transplanted heart: [place] heart Associated angina: without angina Qualified Code(s): I25.10 - Atherosclerotic heart disease of [place] coronary artery without angina pectoris Plan: Status post CABG. No dyspnea or anginal pain with or without exertion. Continue Crestor 20 mg daily, metoprolol succinate ER 150 mg b.i.d. (3) Paroxysmal atrial fibrillation: Code(s): I48.0 - Paroxysmal atrial fibrillation Category: Medical Plan: Reports paroxysmal AFib during stressful situations. Reports the possibility of getting apixaban discontinued by Cardiology. On previous visit the patient came in for preop clearance, and it was noted that he has self stopped apixaban without coordinating with Cardiology. The medication was restarted and the patient was encouraged to follow up with Cardiology to be able to safely discontinue medication. Continue apixaban 5 mg b.i.d., Cardizem HCI CD 150 mg daily, metoprolol succinate ER 150 mg b.i.d.. Continue monitoring for any signs or symptoms of bleeding. Plans for extended heart monitor to determine if the Eliquis could be discontinued. Follow up with Cardiology as scheduled. (4) Hyperlipidemia: Code(s): E78.5 - Hyperlipidemia, unspecified Category: Medical Qualifiers: Hyperlipidemia type: pure hypercholesterolemia Qualified Code(s): E78.00 - Pure hypercholesterolemia, unspecified Plan: Triglycerides 147, total cholesterol 150, LDL 83, HDL 38 Cautioned the patient that his cholesterol levels are trending upwards Discussed lifestyle modifications including dietary changes and physical activity Continue rosuvastatin 20 mg daily We will repeat lipid panel in 3 months (5) Overweight (BMI 25.0-29.9): Code(s): E66.3 - Overweight Category: Medical Plan: Discussed lifestyle modifications including dietary changes and physical activity (6) Impaired fasting glucose: Code(s): R73.01 - Impaired fasting glucose Category: Medical Plan: IFG-Fasting glucose 114 and A1c 5.9%. Reinforced low sugar/carbohydrate diet. We will continue to monitor (7) Chronic idiopathic thrombocytopenia: Code(s): D69.3 - Immune thrombocytopenic purpura Category: Medical Plan: The patient has mild chronic thrombocytopenia with no significant bleeding bruising etc.. He is currently on apixaban 5 mg b.i.d., per Hematology if the patient shows signs of bruising bleeding etc he could be switched to the prophylactic dose which is 2.5 mg of apixaban b.i.d.. (8) Rectal cancer metastasized to liver: Code(s): C20 - Malignant neoplasm of rectum; C78.7 - Secondary malignant neoplasm of liver and intrahepatic bile duct Category: Medical Plan: Rectal cancer metastasis to liver. Diagnosed with colorectal cancer early in 2021. Patient had chemoradiation followed by surgery but unfortunately have some postoperative complication and unfortunately had residual disease. The patient did have adjuvant chemotherapy for multiple reasons, mainly postoperative prolonged complicated course. Oligometastatic liver lesion ablated by Dr. Mccullough, patient has been under surveillance and underwent CT scan recently with no evidence of recurrence. Orders: Orders Hemoglobin A1c 3 Months E66.3 - Overweight, E66.9 - Obesity, unspecified, E78.00 - Pure hypercholesterolemia, unspecified, I10 - Essential (primary) hypertension, I25.10 - Atherosclerotic heart disease of [place] coronary artery without angina pectoris, I48.0 - Paroxysmal atrial fibrillation, R73.01 - Impaired fasting glucose Lipid Panel 3 Months E66.3 - Overweight, E66.9 - Obesity, unspecified, E78.00 - Pure hypercholesterolemia, unspecified, I10 - Essential (primary) hypertension, I25.10 - Atherosclerotic heart disease of [place] coronary artery without angina pectoris, I48.0 - Paroxysmal atrial fibrillation, R73.01 - Impaired fasting glucose Complete Blood Count Auto Diff 3 Months E66.3 - Overweight, E66.9 - Obesity, unspecified, E78.00 - Pure hypercholesterolemia, unspecified, I10 - Essential (primary) hypertension, I25.10 - Atherosclerotic heart disease of [place] coronary artery without angina pectoris, I48.0 - Paroxysmal atrial fibrillation, R73.01 - Impaired fasting glucose Comprehensive [place]. Panel Fast 3 Months E66.3 - Overweight, E66.9 - Obesity, unspecified, E78.00 - Pure hypercholesterolemia, unspecified, I10 - Essential (primary) hypertension, I25.10 - Atherosclerotic heart disease of [place] coronary artery without angina pectoris, I48.0 - Paroxysmal atrial fibrillation, R73.01 - Impaired fasting glucose UA CC w/rflx Micro + Cult 3 Months E66.3 - Overweight, E66.9 - Obesity, unspecified, E78.00 - Pure hypercholesterolemia, unspecified, I10 - Essential (primary) hypertension, I25.10 - Atherosclerotic heart disease of [place] coronary artery without angina pectoris, I48.0 - Paroxysmal atrial fibrillation, R73.01 - Impaired fasting glucose TSH reflex Free T4 3 Months E66.3 - Overweight, E66.9 - Obesity, unspecified, E78.00 - Pure hypercholesterolemia, unspecified, I10 - Essential (primary) hypertension, I25.10 - Atherosclerotic heart disease of [place] coronary artery without angina pectoris, I48.0 - Paroxysmal atrial fibrillation, R73.01 - Impaired fasting glucose Vitamin D 25-OH Total 3 Months E66.3 - Overweight, E66.9 - Obesity, unspecified, E78.00 - Pure hypercholesterolemia, unspecified, I10 - Essential (primary) hypertension, I25.10 - Atherosclerotic heart disease of [place] coronary artery without angina pectoris, I48.0 - Paroxysmal atrial fibrillation, R73.01 - Impaired fasting glucose Medications: Changed From diltiazem HCl CD 180 mg PO DAILY To diltiazem HCl CD 180 mg PO DAILY 90 caps 3RF 90 days
--- OUTSIDE RECORDS SUMMARY | 2024-12-14 11:30 | XMS_ITS | Encounter Summary ---
Author Organization [facility] Address [address] [place] [address] Care Team Providers Care Banquet Stewardess Name Role Phone Sammy Arambula MD Primary Care Provider [phone] Encounter Details Date Type Department Care Team Description 05/30/2022 Social Work [facility] Oncology Services [address] [place] [address] Mariaelena Corbin, [facility] Social History Tobacco Use Types Packs/Day Years [...] on filedocumented in this encounter Care Teams Banquet Stewardess Relationship Specialty Start Date End Date Sammy Arambula MD [address] [place] [address] [place] [id number] PCP - General Internal Medicine 04/29/22 documented as of this encounter
--- OUTSIDE RECORDS SUMMARY | 2024-12-14 11:30 | XMS_ITS | Clinical Summary ---
Author Organization [facility] Address [address] [place] [address] Care Team Providers Care Stable Hand Name Role Phone Sammy Arambula MD Primary Care Provider [phone] Allergies Active Allergy Reactions Criticality Noted Date [...] age to complete this topic Care Teams Stable Hand Relationship Specialty Start Date End Date Sammy Arambula MD [address] [place] [address] [place] [address] PCP - General Internal Medicine 04/29/22
--- OUTSIDE RECORDS SUMMARY | 2024-12-14 11:30 | XMS_ITS | Encounter Summary ---
Author Organization [facility] Address [address] [place] [address] Care Team Providers Care Asset Management Lead Name Role Phone Sammy Arambula MD Primary Care Provider [phone] Encounter Details Date Type Department Care Team Description 05/09/2022 Social Work [facility] Oncology Services [address] [place] [address] Mariaelena Corbin, [facility] Social History Tobacco Use Types Packs/Day Years [...] on filedocumented in this encounter Care Teams Asset Management Lead Relationship Specialty Start Date End Date Sammy Arambula MD [address] [place] [address] [place] [id number] PCP - General Internal Medicine 04/29/22 documented as of this encounter
== END 2024-12-14 10:54 | disposition home or self-care (01) ==
LOC: HO.HMCH 10:00
DX: I10 Essential (primary) hypertension (principal); I25.10 Atherosclerotic heart disease of native coronary artery without angina pectoris; I48.0 Paroxysmal atrial fibrillation; E78.00 Pure hypercholesterolemia, unspecified; E66.3 Overweight; R73.01 Impaired fasting glucose; D69.3 Immune thrombocytopenic purpura; C20 Malignant neoplasm of rectum; C78.7 Secondary malignant neoplasm of liver and intrahepatic bile duct

== ENCOUNTER → 2024-12-14 09:59 | Outpatient (BNVA) | payer MEDICARE, MEDICAID, SELFPAY | DX: I10 Essential (primary) hypertension (principal); I25.10 Atherosclerotic heart disease of native coronary artery without angina pectoris; I48.0 Paroxysmal atrial fibrillation; E78.00 Pure hypercholesterolemia, unspecified; E66.3 Overweight; Z68.28 Body mass index [BMI] 28.0-28.9, adult; R73.01 Impaired fasting glucose; D69.3 Immune thrombocytopenic purpura; C20 Malignant neoplasm of rectum; C78.7 Secondary malignant neoplasm of liver and intrahepatic bile duct; Z71.3 Dietary counseling and surveillance | CPT/HCPCS: 99212 ==